=== PATIENT | male | born 1950 | race Caucasian/White ===

== ENCOUNTER → 2018-10-05 11:48 | Outpatient (CLI) | payer MEDICARE, OTHER, SELFPAY | PROVIDERS: Family Provider Family Medicine; PCP Family Medicine; Referring Provider Nurse Practitioner Adult Health; Visit Provider Nurse Practitioner Adult Health | DX: Z85.46 Personal history of malignant neoplasm of prostate (principal) | CPT/HCPCS: 36415; 84153 ==

== ENCOUNTER 2019-01-18 13:11 | Inpatient (IN) | payer OTHER, MEDICARE, SELFPAY ==
[2019-01-18] VITALS (16 sets, daily range): BP systolic 103–140; BP diastolic 31–89; PULSE 51–78; RESP 13–17; TEMP 35.9–37; O2SAT 96–100; BMI 31.8; BMI 27.3
--- NOTE | 2019-01-18 13:30 | EKG12_ITS ---
Test Reason : CP Blood Pressure : / mmHG Vent. Rate : 055 BPM Atrial Rate : 055 BPM P-R Int : 176 ms QRS Dur : 106 ms QT Int : 454 ms P-R-T Axes : 064 073 059 degrees QTc Int : 434 ms Sinus bradycardia Otherwise normal ECG Confirmed by CARLOZ HARDIN, CLEVELAND ([id number]), editor sound ANGEL PELAYO ([id number]) on 01/19/2019 3:38:42 PM Referred By: Gael Diez Confirmed By:CLEVELAND CARTY MD
[2019-01-18 13:41] LABS: Absolute Lymphocyte Count 1.28 X10^3/ul (0.83-4.51); Absolute Neutrophil Count 5.2 X10^3/uL (2.0-7.7); Basophil# 0.02 X10^3/uL; Basophil% 0.3 % (0-1); Eosinophil# 0.07 X10^3/uL; Hematocrit 43.2 % (40-54); Hemoglobin 14.7 g/dl (13.0-16.5); Lymphocyte # 1.28 X10^3/ul (4.0); Mean Corpuscular Hgb 30.1 pg (27.0-32.0); Mean Corpuscular Volume 88.5 fL (80-94); Mean Platelet Vol. 9.7 fl (6.2-12.0); Monocyte# 0.51 X10^3/uL; Monocyte% 7.2 % (0-10); Neutrophil # 5.22 X10^3/uL (2.7-7.7); Neutrophil % 73.5 % (47-70); Platelet Count 263 K/mm3 (150-450); RBC Distribution Width CV 12.7 % (11.6-14.6); RBC Distribution Width SD 40.6 fl (35.1-43.9); Red Blood Count 4.88 M/mm3 (4.6-6.2); White Blood Count 7.1 K/mm3 (4.4-11.0)
[2019-01-18 13:45] LABS: POSITIVE COUNT NO; POSITIVE DIFFERENTIAL NO; POSITIVE MORPHOLOGY NO
--- NOTE | 2019-01-18 13:45 | RAD_ITS ---
STUDY: X-RAY CHEST REASON FOR EXAM: Male, 68 years old. Chest pain. STEMI alert. TECHNIQUE: Single AP portable view of the chest. COMPARISON: None. FINDINGS: EKG electrodes are seen. Mild degree of vascular congestion. There is no demonstrated pleural abnormality. Normal size heart. Normal mediastinum and shonda. Normal visualized pulmonary arteries. There is atherosclerotic tortuosity of the aortic arch and descending thoracic aorta. Normal visualized thoracic spine. Amorphous calcification in the proximal shaft of the right humerus suggestive of a chondroid calcification or healed bone infarct. There is no demonstrated abnormality of the visualized soft tissue structures of the upper abdomen. RAD/Chest 1 View (Portable) IMPRESSION: Mild degree of vascular congestion. Electronically Signed: Carl Mi, at 14:30 EST , Service support ,
[2019-01-18] MEDS: TICAGRELOR 90 MG TABLET 180 MG PO (13:49)
--- NOTE | 2019-01-18 13:50 | ED.VISSUMM ---
- ER Visit Summary Date of Service: 01/18/19 Chief Complaint: [Chest pain] History of Present Illness: The patient is a 68 M [presents to the emergency department complaint of chest pain that started at 12:10 PM. Patient states that he had finished rowing machine around 11:40 AM. Patient had some to come over to sign some papers and then by 10 minutes later developed discomfort in his left chest radiating into his left arm. Patient became diaphoretic and short of breath. Patient was nauseated and did vomit. Patient is never had discomfort like this before. EMS was called. EMS gave the patient aspirin and also 1 sibling and nitro.] Patient is never had pain like this before. Patient states that he has had a heart cath but it has been over 12 years since the last heart cath. He denies recent travel or surgery. Patient has remote history of prostate cancer. Physical Examination: [HEENT-PERRLA, EOMI. Cranial nerves II through XII grossly intact. TMs clear. Mucous membranes moist. No adenopathy. Cardiovascular-regular rate and rhythm without murmur or ectopy Lungs-clear to auscultation, chest wall stable without crepitus or subcu emphysema Abdomen-normoactive bowel sounds, soft, nontender, no rebound or rigidity, no peritoneal signs. Extremities-intact ?4, normal range of motion, normal pulses, atraumatic] Test Results: [EKG obtained arrival showed some subtle ST elevation in V1 as well as V2 and V3 which when compared with prior EKG appears to be new. Chemistries pending.] Emergency Department Course and Treatment: [I discussed case with cardiology upon obtaining the EKG and evaluating old EKG which appears to be different and I am concerned about patient's presentation. Cardiology felt his EKG was consistent with ST elevation MO. Patient was given Brilinta and heparin and was transferred immediately to the Heel Nailing Machine Operator.] Treatment Plan: [Admit to Heel Nailing Machine Operator] Disposition: [Admit] Impression: [Acute ST elevation MO Chest pain] This note was generated with [employer] dictation software. It may contain incorrect words, spelling, and punctuation that were not noted in review of the chart prior to signing ED Disposition - Plan for ED Patient: Referrals: Davy Gallagher MD [Primary Care Provider] -
[2019-01-18 13:55] LABS: Anion Gap 10 (5-15); BUN 20 mg/dL (7-18); Calcium,Total 9.2 mg/dL (8.5-10.1); Chloride 105 mmol/L (98-107); Creatinine, Serum 1.05 mg/dL (0.70-1.30); EST Glomerular Filtration Rate 75 mL/min (>60); Est Glom Filt Rate - Afr Amer 91 mL/min (>60); Estimated Creatinine Clearance 62.45 ml/min; Glucose 158 mg/dL (74-106); Lipase 144 U/L (73-393); Potassium 3.4 mmol/L (3.5-5.1); Sodium Level 137 mmol/L (136-145)
--- NOTE | 2019-01-18 13:55 | CM.ED ---
SOCIAL WORK NOTE THIS WORKER RESPONDED TO STEMI. PT'S SON, YUKO AND FRIEND PRESENT. EMOTIONAL SUPPORT AND EDUCATION PROVIDED. ESCORTED FAMILY TO REFERENCE ARCHIVIST PRIVATE WAITING AREA. THIS WORKER TO FOLLOW UP. SANDRA CARABALLO, HISTOLOGY SUPERVISOR, GANG PLANK WORKMAN.
--- NOTE | 2019-01-18 14:02 | ED.RN ---
roving tester laboratory staff at bedside prior to pt being prep.
--- NOTE | 2019-01-18 14:41 | CM.ED ---
Social Work Assessment Referral Date: 01/18/19 Date of Assessment: 01/18/19 Informant: SELF-REFERRAL Reason for Consult: STEMI Information obtained from: PT'S SON, YUKO [phone] Living Arrangements: PT LIVES HOME WITH IN A 1 STORY HOME Employment/Financial: RETIRED, PER SON, PT FINANCIALLY STABLE. DENIES ANY NEEDS. Supports: PT HAS GOOD SUPPORT FROM FAMILY AND FRIENDS. Social/Family Stressors: NONE REPORTED Mental Health History: SON DENIES ANY HX OF MENTAL HEALTH FOR PT. Substance Abuse History: SON DENIES ANY HX OF SUBSTANCE ABUSE FOR PT. Interventions: SOCIAL SERVICE ASSESSMENT Assessment: PT IS A 68 Y/O MALE WHO PRESENTED TO ED WITH CHEST PAIN. STEMI WAS CALLED AND PT TAKEN TO GROUNDS MANAGER. THIS WORKER COMPLETED ASSESSMENT WITH PT'S SON, YUKO. PER YUKO, PT IS INDEPENDENT WITH ALL ADLS AND STAYS PHYSICALLY FIT AND ACTIVE. SON DENIES ANY HX OF MENTAL HEALTH OR SUBSTANCE ABUSE FOR PT. HOME SET UP IS 1 STORY. PT'S PCP IS DR. YURY MERIDA. SON REPORTS OTHER FAMILY HAS BEEN UPDATED AND IS TRAVELING AND WILL BE HEADING BACK FROM OUT OF STATE THIS DAY. EXPLAINED THIS WORKER'S ROLE AND EMOTIONAL SUPPORT PROVIDED. UPDATED ON ICU ROOM NUMBER PT WILL BE TAKEN TO AFTER GROUNDS MANAGER. NO OTHER QUESTIONS OR CONCERNS AT THIS TIME. PLAN: ADMIT ICU
--- NOTE | 2019-01-18 14:42 | PCM.HP.STD ---
Problem List (1) STEMI (ST elevation myocardial infarction) Status: Acute Qualifiers: Involved coronary artery: unspecified coronary artery Qualified Code(s): I21.3 - ST elevation (STEMI) myocardial infarction of unspecified site (2) Diverticulosis of colon Status: Chronic History of Present Illness Date of Admission: 01/18/19 Chief Complaint: Chest pain The patient is a 68 y/o M w/ PMHx: Diverticulosis otherwise healthy who presents to the [facility] ED on 01/18/19 with history of exercising on a.m. of day of presentation, specifically rowing following which he stopped in approximately 20 minutes afterwards he started to have left arm discomfort which was severe in nature and then radiated to his chest described as constant, pressure and throbbing in nature with diaphoresis with no associated dyspnea, nausea, emesis at 11:20 AM. In the ED workup included T 96.6, heart rate 51, BP 107/87, respiratory rate 17, 100% on room air, CBC with WBC 7.1, hemoglobin 14.7, platelet 263 with mild left shift, d-dimer 0.50, BMP with potassium 3.4, BUN/creatinine 20/1.05, glucose 158, troponin initial < 0.015, lipase 144, EKG w/ concerns for sinus bradycardia with anterior septal STEMI, chest x-ray with mild appearance of congestion. Given STEMI concern cardiology immediately contacted and STEMI call placed at approximate 1345 with patient administration of aspirin therapy, Brilinta load, Phenergan, fentanyl 35 mcg IV x1, bolus in addition to normal saline. Patient transition to the cardiac catheterization lab for cardiac catheterization per Dr. Diez. Past Medical History Past Medical History (Chronic Problems): Chronic Problems Diverticulosis of colon (Chronic) Allergies ondansetron [From Zofran (as hydrochloride)] Adverse Reaction (Verified 01/18/19 13:12) HALLUCINATIONS Home Medications: Ambulatory Orders Medication Instructions Recorded Hydrocodone Bitart/Apap 5-325 1 - 2 tablet PO Q4H PRN PRN #20 08/30/17 [Holloway 5/325] tablet Amoxicillin/Potassium Clav 1 each PO BID #20 tablet 09/09/17 [Augmentin 875-125 Tablet] Polyethylene Glycol 3350 [Miralax] 17 gm PO DAILY #10 packet 09/09/17 Surgical History: - - Tonsillectomy, left knee arthroscopic surgery. Psychiatric History: No pertinent psych hx Lives: Spouse/ Significant Other Smoking Status: Former smoker - Quit cigarette tobacco usage approximately 25 years prior with prior to this a 1 pack/day cigarette tobacco usage history. Tobacco Use: Non-smoker Alcohol: None Drugs: None - *Family History Maternal History Items: Heart Disease Paternal History Items: Heart Disease Review of Systems Constitutional: Reports: Malaise, Weakness, Fatigue. Denies: Chills, Fever, Weight Change HEENT: Denies: Head Aches, Sinus Congestion, Sinus Drainage Cardiovascular: Reports: Chest Pain, Chest Pressure. Denies: Edema, Orthopnea, Palpitations, Syncope Respiratory: Denies: Cough, Shortness of Breath, Shortness of breath at rest, Shortness of breath upon exertion, Sputum production Gastrointestinal: Denies: Abdominal Pain, Nausea, Vomiting Genitourinary: Denies: Dysuria Musculoskeletal: Denies: Joint Pain, Joint Tenderness Skin: Denies: Rash, Wounds Neurological: Denies: Numbness, Tingling, Focal weakness Psychiatric: Denies: Anxiety, Depression, Homicidal Ideations, Suicidal Ideations Hematologic/ Lymphatic: Denies: Easy Bruising, Easy Bleeding VTE Information - Inpt Only VTE Present on Admission: No VTE Mechan Device Prophylaxis: SCD's VTE Pharm Prophylaxis ordered?: Yes Patient Problems: Active and Suspected Problems STEMI (ST elevation myocardial infarction) (Acute) Subjective: Seated upright in ED bed, very uncomfortable during, ongoing chest discomfort, flushed. Objective: Physical Examination: General: awake, alert, oriented x 3 and cooperative, seated upright in ED bed, ill-appearing, ongoing pain, flushed appearance. Skin: Flushed appearance, turgor, no icterus, cyanosis. HEENT: AT/NC, EOMI, PERRLA, mildly dry MM, no carotid bruits or JVD noted. Lungs: CTA bilaterally, moderate effort, mild decrease BL bases, no rales, ronchi or wheezing. Heart: Cardiac with regular rhythm; no gallop, rub audible. Abdomen: soft, NTTP, ND, normal BS, no HSM. Extremities: no cyanosis, clubbing, or edema. Neurological: patient awake, alert, oriented x 3; cognitive function intact; pupils equally reactive to light and accomodation; cranial nerves II-XII grossly normal, moving all 4 extremities, no focal deficits, strength accordingly severely globally decreased secondary to acute presentation. Psychiatric: affect appears in pain, mildly agitated, no acute evidence of depressive or anxiety feelings. - Physical Exam Vital Signs Temp Pulse Resp BP Pulse Ox 96.6 F L 51 L 17 107/87 H 100 01/18/19 13:12 01/18/19 13:12 01/18/19 13:12 01/18/19 13:12 01/18/19 13:30 Oxygen Delivery Method Room Air Weight: 197 lb Body Mass Index (BMI) 31.8 Laboratory Tests Past 24 Hrs 01/18/19 01/18/19 01/18/19 13:27 13:27 13:27 WBC 7.1 RBC 4.88 Hgb 14.7 Hct 43.2 MCV 88.5 MCH 30.1 MCHC 34.0 RDW 12.7 RDW Differential 40.6 Plt Count 263 MPV 9.7 Immature Gran % (Auto) 0.000 Neut % (Auto) 73.5 H Lymph % (Auto) 18.0 L [place] % (Auto) 7.2 Eos % (Auto) 1.0 Baso % (Auto) 0.3 Absolute Neuts (auto) 5.2 Absolute Lymphs (auto) 1.28 Total Counted Not Reportable D-Dimer Quant (PE/DVT) 0.50 H Sodium 137 Potassium 3.4 L Chloride 105 Carbon Dioxide 22.0 Anion Gap 10 BUN 20 H Creatinine 1.05 Estim Creat Clear Calc 62.45 Est GFR (MDRD) Af Amer 91 Est GFR (MDRD) Non-Af 75 BUN/Creatinine Ratio 19.0 Glucose 158 H Calcium 9.2 Troponin I < 0.015 Lipase 144 Assessment/Plan All Active Problems STEMI (ST elevation myocardial infarction) (Acute) Abscess of sigmoid colon due to diverticulitis (Acute) The patient is a 68 y/o M w/ PMHx: Diverticulosis otherwise healthy who presents to the [facility] ED on 01/18/19 with history of exercising on a.m. of day of presentation, specifically rowing following which he stopped in approximately 20 minutes afterwards he started to have left arm discomfort which was severe in nature and then radiated to his chest described as constant, pressure and throbbing in nature with diaphoresis with no associated dyspnea, nausea, emesis at 11:20 AM. (1) Chest Pain w/ Acute STEMI: ED workup included T 96.6, heart rate 51, BP 107/87, respiratory rate 17, 100% on room air, CBC with WBC 7.1, hemoglobin 14.7, platelet 263 with mild left shift, d-dimer 0.50, BMP with potassium 3.4, BUN/creatinine 20/1.05, glucose 158, troponin initial < 0.015, lipase 144, EKG w/ concerns for sinus bradycardia with anterior septal STEMI, chest x-ray with mild appearance of congestion. Given STEMI concern cardiology immediately contacted and STEMI call placed at approximate 1345 with patient administration of aspirin therapy, Brilinta load, Phenergan, fentanyl 35 mcg IV x1, bolus in addition to normal saline. Patient transition to the cardiac catheterization lab for cardiac catheterization per Dr. Diez. Will admit to ICU following cardiac catheterization, maintain on a monitored bed, continue serial cardiac enzymes and EKGs. Obtain magnesium level upon admission. Continue medical management w/ asa, brillinta, defer BB/ACEI/ARB decision to cardiology given bradycardia and low normal BPs, add high dose statin w/ AM FLP. Obtain AM ECHO. ASA, NG, morphine. (2) Hypokalemia: Admission K+ 3.4, supplementation given, repeat level in AM. (3) Hyperglycemia: Admission glucose 158, hemoglobin A1c pending. (4) DVT prophylaxis: SCD, Lovenox to be initiated in a.m. Code Visit Inpatient E&M: 61631 Init Hosp L3
[2019-01-18 15:30] LABS: ACT Activated Clotting Time 175 sec (74-137)
[2019-01-18 15:30] LABS: ACT Activated Clotting Time 224 sec (74-137)
--- NOTE | 2019-01-18 15:45 | NURSING ---
Fem stop applied in laborer heading.
--- NOTE | 2019-01-18 15:55 | CL.I_ITS ---
Patient Name: ANDREW EDUARDO Study Date: 01/18/2019 Performing: Gael Diez MD Ht: 66.14 inches 168 cm : 1950 Wt: 196.21 lbs 89 kg Age: 68 Gender: male BSA: 1.99 PROCEDURE(S) PERFORMED PM83-RLE/COR/LV OF84-EEF, DENZEL AND/OR PTCA, ARTERY OR GRAFT, SINGLE VESSEL FL28-XAN W OR WO PTCA, EACH ADD'L ARTERY, SAME MAJOR CLINICAL PROFILE AND CO-MORBIDITIES Patient presents with STEMI for emergent cardiac cath. Indications: ACS <= 24 hrs, Suspected CAD Heart Failure: None Stress/Imaging Stress/Image Study Performed: No Angina Classification Anginal Classification w/in 2 Weeks: No symptoms CAD Presentations: Unstable angina. STEMI. Symptom onset Date/Time: 01/18/2019 12:30:00 Time Casandra mated Comorbidities/Risk Factors: Hypertension Dyslipidemia CONCLUSIONS Normal LV size, wall motion,and systolic function Perserved Left Ventricular systolic function with normal EDP Double vessel CAD of the LAD and DIAG#1 Successful PTCA/DENZEL mid DIAG#1 with a 2.5 x 12 Promus Synergy, 85%-->0%, no dissection. Successful PCI with PTCA to the ostial DIAG#1 prior to and after stent deployment in the LAD, utilizi ng a 2.5 x 8 balloon; 85%--50%, no dissection. No additional stenting performed as pt had <50% resid ual stenosis, was chest pain free, acute angle of the bifurcation and concern over protruding into LA D and causing in stent thrombosis. Successful PTCA/DENZEL mid LAD with a 2.5 x 28 Promus Synergy stent, post dilated with a 3.0 x 12 NC Bal loon, followed more proximally with a 3.5 x 8 NC Balloon; 100%-->0%, no dissection. Successful PTCA/DENZEL to mid LAD with a 2.25 x 20 Promus Synergy, post dilated with a 2.5 x12 mm NC bal loon; 75%-->0%, no dissection. RECOMMENDATIONS Referred for immediate PCI Management as per referring Pig Casting Machine Operator Risk factor modification Management as per referring Pig Casting Machine Operator Mynx closure partially successful, direct manual pressure held for 30 min, followed by a femostop in agricultural labor camp manager. No further oozing or bleeding. DESCRIPTION OF PROCEDURE The patient arrived to the procedure lab. The risks and benefits of the procedure as well as a full d escription of our services here and lack of surgical backup were fully explained to the patient and/o r their significant other prior to the catheterization. The Timeout was completed, verifying the ginny ect patient and procedure. The patient's procedural site was prepped and draped in the usual fashion. Local anesthetic was given subcutaneously to right groin region with Lidocaine 2%. Using a modified Seldinger technique, arterial access was obtained via the right femoral artery, a 6Fr sheath was inse rted.. Right Coronary Artery selective angiography was then performed in multiple views using a 4 Fr . 3DRC catheter. Left Coronary Artery selective angiography was performed in multiple views using a 6 Fr. EBU 3.5. Left Ventriculography was performed in VERGARA projection using a 4 Fr. Pigtail catheter. L V to AO pullback pressures were then recorded Runthrough Guide wire was advanced to the LAD. 2.0 x 12 Emerge Balloon catheter was inserted. Bal loon catheter was advanced across lesion in the LAD, mid. PTCA balloon inflated at 6 atms for 7 secs. PTCA balloon inflated at 8 atms for 8 secs. Angiogram performed post balloon dilatation. Runthrough (2) Guide wire was inserted as a christiano wire. 2.0 x 12 Emerge Balloon catheter was reinserted Balloon catheter was advanced across lesion in the LAD, mid. PTCA balloon inflated at 8 atms for 6 secs. PTCA balloon inflated at 10 atms for 5 secs. Synergy 2.5 x 12 Drug Eluting stent was inserted. Drug Eluti ng stent was advanced across the lesion in the first diagonal, ostial. Angiogram performed post stent deployment. Synergy 2.5 x 28 Drug Eluting stent was inserted. Angiogram performed pre stent deployme nt. Angiogram performed post stent deployment. 3.0 x 12 NC Euphora Balloon catheter was inserted. Bal loon catheter was advanced across lesion in the LAD, mid. Post Stent PTCA balloon inflated at 14 atms for 11 secs. Angiogram performed post balloon dilatation. 3.5 x 8 NC Euphora Balloon gilberto ter was inserted. Balloon catheter was advanced across lesion in the LAD, mid. Angiogram performed po st balloon dilatation. 2.25 x 20 Synergy Drug Eluting stent was inserted. Drug Eluting stent was adva nced across the lesion in the LAD, mid. Angiogram performed pre stent deployment. Synergy 2.[address] balloon Balloon catheter was reinserted 2.5 x 12 NC Euphora Balloon catheter was inserted. Balloo n catheter was advanced across lesion in the LAD, mid. Angiogram performed post balloon dilatation. 3 .5 x 8 NC Euphora Balloon catheter was inserted. Balloon catheter was advanced across lesion in the L AD, mid. Angiogram performed post balloon dilatation. 2.5 x 12 NC Euphora Balloon catheter was insert ed. Balloon catheter was advanced across lesion in the first diagonal, ostial. 2.5 x 8 Emerge Balloon catheter was inserted. Balloon catheter was advanced across lesion in the first diagonal, ostial. Angiogram performed post balloon dilatation. Contrast was injected through the sheath and the Right Iliac and Femoral artery were assessed for possible closure device. The arterial sheath was p ulled and a Mynx closure device was deployed for hemostasis. Mynx failed. Manual compression applied until hemostasis is achieved. CORONARY ANGIOGRAPHY DOMINANCE: Right Dominant LEFT HEART ASSESSMENT Left Ventricular Ejection Fraction: by LV Gram 75 % Normal Left Ventricular systolic function Normal LV wall motion LEFT MAIN: Angiographically normal LEFT ANTERIOR DECENDING ARTERY: MID LAD: is occluded DIAGONAL 1: Ostial - 85 % Stenosis, Mid - 85 % Stenosis CIRCUMFLEX ARTERY: Mild luminal irregularities less than 30% RIGHT CORONARY ARTERY: PROX RCA: Mild luminal irregularities less than 30% MID RCA: Mild luminal irregularities less than 30% RT PDA: Proximal - Mild luminal irregularities less than 30% INTERVENTION INFORMATION LESION SITE: 1st Diagonal (Mid) Lesion Complexity: Non-High/Non-C, lesion at bifurcation: No, thrombus present: No, lesion length: 12 mm, culprit lesion: No Pre Stenosis: 85 % Pre intervention KATELYN flow: 3 PROCEDURE: Drug Eluting Stent with pre dilatation. Post Stenosis: 0 % Post intervention KATELYN flow: 3 Lesion Devices: Tommy Sci EMERGE MR 2.00x12 BALLOON Terumo .014 Runthrough Extra Floppy 180cm straight BlueView Technologiestronic 6 Fr EBU3.5 100cm Guide Catheter Tommy Sexton Synergy MR DENZEL 2.50x12 LESION SITE: 1st Diagonal (ostial) Lesion Complexity: High/C, lesion at bifurcation: Yes, thrombus present: No, lesion length: 8 mm, cul prit lesion: No Pre Stenosis: 85 % Pre intervention KATELYN flow: 3 PROCEDURE: Balloon Angioplasty Post Stenosis: 50 % Post intervention KATELYN flow: 3 Lesion Devices: Terumo .014 Runthrough Extra Floppy 180cm straight Medtronic 6 Fr EBU3.5 100cm Guide Catheter Tommy Sci EMERGE MR 2.50x08 BALLOON LESION SITE: LAD (Mid) Lesion Complexity: High/C, lesion at bifurcation: Yes, thrombus present: Yes, lesion length: 48 mm, c ulprit lesion: Yes, Lesion Complexity: High/C, lesion at bifurcation: Yes, thrombus present: Yes, les ion length: 28 mm, culprit lesion: Yes Pre Stenosis: 100 % Pre intervention KATELYN flow: 0 PROCEDURE: Drug Eluting Stent with pre and post dilatation Drug Eluting Stent with pre and post dilatation 0 % Post intervention KATELYN flow: 3 Lesion Devices: Terumo .014 Runthrough Extra Floppy 180cm straight Medtronic 6 Fr EBU3.5 100cm Guide Catheter Tommy Sci Synergy MR DENZEL 2.50x28 Medtronic NC EUPHORA RX 3.0x12 BALLOON Medtronic NC EUPHORA RX 3.5x08 BALLOON Tommy Sci Synergy MR DENZEL 2.25x20 Medtronic NC EUPHORA RX 2.5x12 BALLOON COMPLICATIONS No Complications PROCEDURE MEDICATIONS Oxygen: 2 L/min via nasal cannula Heparin 6000 unit(s) IV 01/18/2019 14:07:11 Nitro 200 mcg IC 01/18/2019 14:08:20 Nitro 200 mcg IC 01/18/2019 14:08:20 Nitro 200 mcg IC 01/18/2019 14:20:19 IV Bolus: .9 NaCl 1000 ml total 01/18/2019 14:36:06 IV Fluids: .9 NaCl decreased to 150 ml/hr 01/18/2019 14:57:46 SUMMARY OF HEMODYNAMIC DATA Time AIR REST ECG 13:57:06 AO 123/67 (91) SA 14:02:09 LV 113/-14, 4 14:55:22 LV 113/-14, 5 14:55:28 LVp 117/-17, 1 14:55:44 AOp 115/56 (78) 14:55:50 Signed By Gael Diez MD On 01/19/2019 4:15:22 PM Signed By Gael Diez MD On 01/18/2019 15:54:55 Gael Diez MD
--- NOTE | 2019-01-18 16:00 | EKG12_ITS ---
Test Reason : S/P PCI, STEMI Blood Pressure : / mmHG Vent. Rate : 063 BPM Atrial Rate : 063 BPM P-R Int : 176 ms QRS Dur : 098 ms QT Int : 412 ms P-R-T Axes : 063 060 062 degrees QTc Int : 421 ms Normal sinus rhythm Nonspecific ST abnormality Abnormal ECG When compared with ECG of 18-JAN-2019 13:14, MANUAL COMPARISON REQUIRED, DATA IS UNCONFIRMED Confirmed by CARLOZ HARDIN, CLEVELAND ([id number]), magazine editor USMAN MERIDA ([id number]) on 01/23/2019 2:48:45 PM Referred By: Gael Diez Confirmed By:CLEVELAND CARTY MD
--- NOTE | 2019-01-18 16:00 | NURSING ---
NS bag up from dye lab technician w/approx 500 ml. Infusing @ 150 ml/hr per order.
--- NOTE | 2019-01-18 16:35 | NURSING ---
RT leg upper thigh (marked)- 23in RT leg lower thigh (marked)- 17&1/4in RT leg calf (marked)- 14&3/4in LT leg upper thigh (marked)- 20&3/4in LT leg lower thigh (marked)- 17in LT leg calf (marked)- 12&3/4in
[2019-01-18 18:00] LABS: Hemoglobin A1c 5.6 % (4.2-6.3)
--- NOTE | 2019-01-18 18:15 | NURSING ---
RT leg upper thigh (marked)- 22in RT leg lower thigh (marked)- 17&1/2in RT leg calf (marked)- 14&3/4in LT leg upper thigh (marked)- 20&3/4in LT leg lower thigh (marked)- 17in LT leg calf (marked)- 12&3/4in
[2019-01-18 18:19] LABS: Magnesium 2.1 mg/dL (1.6-2.6)
[2019-01-18] MEDS: Acetaminophen 325 MG Tablet 650 MG PO (19:46)
[2019-01-18] MEDS: 0.9% Normal Saline 1,000 ML 150 ML IV (19:46)
[2019-01-18] MEDS: HYDROcodone Bitartrate/Apap 5/325 Tablet PO (21:12)
[2019-01-18] MEDS: LORazepam 1 MG Tablet PO (21:15)
[2019-01-18] MEDS: Atorvastatin Calcium 80 MG Tablet PO (21:15)
[2019-01-18] MEDS: TICAGRELOR 90 MG TABLET PO (21:15)
[2019-01-18 22:05] LABS: Bedside Glucose 97 mg/dL (70-110)
[2019-01-19] VITALS (29 sets, daily range): BP systolic 98–128; BP diastolic 52–86; PULSE 51–68; RESP 12–20; TEMP 36.7–36.8; O2SAT 95–100; BMI 31.8
[2019-01-19 02:21] LABS: Bedside Glucose 133 mg/dL (70-110)
[2019-01-19 04:55] LABS: Hematocrit 39.5 % (40-54); Hemoglobin 13.1 g/dl (13.0-16.5); Mean Corp Hgb Conc 33.2 g/gl (32-36); Mean Corpuscular Hgb 29.6 pg (27.0-32.0); Mean Corpuscular Volume 89.4 fL (80-94); Mean Platelet Vol. 9.4 fl (6.2-12.0); Platelet Count 251 K/mm3 (150-450); RBC Distribution Width SD 41.9 fl (35.1-43.9); Red Blood Count 4.42 M/mm3 (4.6-6.2); White Blood Count 7.4 K/mm3 (4.4-11.0)
[2019-01-19 04:56] LABS: Scan Indicated on CBC? Y/N NO
[2019-01-19 05:08] LABS: ALB/GLOB Ratio 0.9 RATIO (0.9-2.4); AST(SGOT) 131 U/L (15-37); Alanine Aminotransfer ALT/SGPT 44 U/L (16-61); Albumin, Serum 3.3 g/dL (3.2-5.0); Alkaline Phosphatase 50 U/L (45-117); Anion Gap 7 (5-15); BUN 15 mg/dL (7-18); BUN/Creat Ratio 15.4 RATIO (10-20); Calcium,Total 8.4 mg/dL (8.5-10.1); Chloride 110 mmol/L (98-107); Cholesterol 196 mg/dL (200); Creatinine, Serum 0.98 mg/dL (0.70-1.30); EST Glomerular Filtration Rate 82 mL/min (>60); Est Glom Filt Rate - Afr Amer 99 mL/min (>60); Estimated Creatinine Clearance 81.38 ml/min; Globulin 3.5 g/dL (2.2-4.2); Glucose 105 mg/dL (74-106); High Density Lipoprotein 39 mg/dL; Potassium 4.1 mmol/L (3.5-5.1); Protein, Total 6.8 g/dL (6.4-8.2); Sodium Level 142 mmol/L (136-145); Triglycerides 103 mg/dL; Very Low Density Lipoprotein 21 mg/dL (5-40)
--- NOTE | 2019-01-19 05:55 | ECHOD_ITS ---
Reason For Study: CHEST PAIN Procedure This was a 2D Doppler, Color Flow transthoracic echocardiogram. Exam performed portable in ICU/CCU. Left Ventricle Normal size and thickness. The estimated ejection fraction is 55-60 %. Stage 1 diastolic dysfunction. Mid-anteroseptal : Mildly hypokinetic. Anterior [place] : Mildly hypokinetic. Right Ventricle Normal size and thickness. Normal systolic function. Atria Normal left atrium. Normal right atrium. Normal atrial septum. Mitral Valve The mitral valve is structurally normal. No prolapse or stenosis seen. Tricuspid Valve Normal tricuspid valve. Trivial tricuspid valve insufficiency. Right ventricular systolic pressure estimated to be 29 mmHg. Aortic Valve Trisinus/trileaflet aortic valve. Trivial aortic valve insufficiency. Pulmonic Valve Normal pulmonic valve. Trivial pulmonic valve insufficiency. Great Vessels Normal aortic root. Normal arch. Normal inferior vena cava. Inferior vena cava collapse with sniff. Pericardium/Pleural No pericardial effusion. MMode/2D Measurements & Calculations LVIDd: 4.5 cm IVSd: 0.96 cm Ao root diam: 3.5 cm LVIDs: 3.0 cm LVPWd: 1.2 cm RVDd: 3.8 cm FS: 31.8 % LAV(MOD-bp): 55.8 ml LA A4 area: 20.7 cm2 LA dimension(2D): 3.7 cm LAV(MOD-bp) Indexed: 26.1 ml/m2 LAV(MOD-sp2): 46.6 ml LAV(MOD-sp4): 65.8 ml RA A4 area: 14.8 cm2 Time Measurements MV dec time: 0.22 sec Doppler Measurements & Calculations MV E max evangelist: 74.4 cm/sec Lat Peak E' Evangelist: 9.4 cm/sec Med Peak E' Evangelist: 9.1 cm/sec MV A max evangelist: 97.8 cm/sec E/E' lat: 7.9 E/E' med: 8.2 MV E/A: 0.76 Ao V2 max: 156.5 cm/sec AI max evangelist: 195.4 cm/sec LV V1 max: 152.8 cm/sec Ao max P.8 mmHg AI max P.3 mmHg LV V1 max P.3 mmHg AI dec slope: 123.1 cm/sec2 AI P1/2t: 464.9 msec PA V2 max: 82.6 cm/sec PI end-d evangelist: 108.0 cm/sec TR max evangelist: 252.7 cm/sec TR max P.6 mmHg Interpretation Summary The estimated ejection fraction is 55-60 %. Stage 1 diastolic dysfunction. Mid-anteroseptal : Mildly hypokinetic Anterior [place] : Mildly hypokinetic Right ventricular systolic pressure estimated to be 29 mmHg. There is no comparison study available. Ordering Physician: Elvi Dowd Referring Physician: YURY MERIDA Performed By: Vianney Mayers, DARREN, RVT
--- NOTE | 2019-01-19 07:31 | PN_ITS ---
Patient Problems: Active and Suspected Problems STEMI (ST elevation myocardial infarction) (Acute) Subjective: Patient is a 68-year-old gentleman who presented with chest pain and assessment of acute ST segment elevation [place] made patient underwent emergency left heart catheterization with intervention Objective: GENERAL: cooperative HEENT: Atraumatic; moist oral mucosa EYES; Anicteric, Normal Conjunctiva NECK; supple, normal thyroid, no distended JVD. RESPIRATORY: Diminished to auscultation bilaterally, CARDIOVASCULAR: Regular S1 S2, no audible murmurs GI: soft, non-tender, normoactive bowel sounds, : No Renal angle tenderness; EXTREMITIES: No edema, no clubbing, no cyanosis. NEURO: Awake; no lateralizing signs. SKIN: No Rash PSYCH; Normal affect Vitals/I&O's: Vital Signs Temp Pulse Resp BP Pulse Ox 98.1 F 67 14 111/52 L 98 01/19/19 00:00 01/19/19 06:00 01/19/19 06:00 01/19/19 06:00 01/19/19 06:00 Oxygen Delivery Method Room Air Weight: 92 kg Body Mass Index (BMI) 27.3 Intake and Output for Last 24 Hours 01/17/19 01/18/19 01/19/19 23:59 23:59 23:59 Intake Total 1117 / 1117 Output Total 2250 / 2250 650 / 650 Balance -1133 / -1133 -650 / -650 Laboratory Results 01/18/19 13:27: WBC 7.1, RBC 4.88, Hgb 14.7, Hct 43.2, MCV 88.5, MCH 30.1, MCHC 34.0, RDW 12.7, RDW Differential 40.6, Plt Count 263, MPV 9.7, Immature Gran % (Auto) 0.000, Neut % (Auto) 73.5 H, Lymph % (Auto) 18.0 L, [place] % (Auto) 7.2, Eos % (Auto) 1.0, Baso % (Auto) 0.3, Absolute Neuts (auto) 5.2, Absolute Lymphs (auto) 1.28, Total Counted Not Reportable 01/18/19 13:27: Sodium 137, Potassium 3.4 L, Chloride 105, Carbon Dioxide 22.0, Anion Gap 10, BUN 20 H, Creatinine 1.05, Estim Creat Clear Calc 62.45, Est GFR (MDRD) Af Amer 91, Est GFR (MDRD) Non-Af 75, BUN/Creatinine Ratio 19.0, Glucose 158 H, Calcium 9.2, Troponin I < 0.015, Lipase 144 01/18/19 13:27: D-Dimer Quant (PE/DVT) 0.50 H 01/18/19 14:03: Activated Clotting Time 175 H 01/18/19 15:01: Activated Clotting Time 224 H 01/18/19 17:30: Hemoglobin A1c 5.6 01/18/19 17:30: Magnesium 2.1, Troponin I 20.000 H* 01/18/19 21:43: POC Glucose 97 01/19/19 01:40: POC Glucose 133 H 01/19/19 04:30: WBC 7.4, RBC 4.42 L, Hgb 13.1, Hct 39.5 L, MCV 89.4, MCH 29.6, MCHC 33.2, RDW 13.0, RDW Differential 41.9, Plt Count 251, MPV 9.4 01/19/19 04:30: Sodium 142, Potassium 4.1, Chloride 110 H, Carbon Dioxide 25.0, Anion Gap 7, BUN 15, Creatinine 0.98, Estim Creat Clear Calc 81.38, Est GFR (MDRD) Af Amer 99, Est GFR (MDRD) Non-Af 82, BUN/Creatinine Ratio 15.4, Glucose 105, Calcium 8.4 L, Total Bilirubin 0.40, AST 131 H, ALT 44, Alkaline Phosphatase 50, Total Protein 6.8, Albumin 3.3, Globulin 3.5, Albumin/Globulin Ratio 0.9, Triglycerides 103, Cholesterol 196, LDL Cholesterol 136 H, VLDL Cholesterol 21, HDL Cholesterol 39 L Current Medications Acetaminophen (Tylenol) 650 mg PO Q6H PRN PRN PRN Reason: Non-cardiac pain (mod-severe) Last Admin: 01/18/19 19:46 Dose: 650 mg Hydrocodone Bitart/Acetaminophen (Ray 5mg-325mg) 1 - 2 tablet PO Q6H PRN PRN PRN Reason: Moderate-severe pain Last Admin: 01/18/19 21:12 Dose: 1 tablet Al Hydroxide/Mg Hydroxide (Mylanta Ii) 30 ml PO Q6H PRN PRN PRN Reason: Gastric burning Aspirin (Ecotrin) 81 mg PO DAILY@0800 [facility] Atorvastatin Calcium (Lipitor) 80 mg PO QHS [facility] Last Admin: 01/18/19 21:15 Dose: 80 mg Atropine Sulfate () 0.5 mg IV UD PRN PRN Reason: HR <50 bpm Heparin Sodium (Beef Lung) (Heparin 500 Unit/5 Ml (100/Ml)) 4,000 unit IV UD PRN PRN Reason: HEPARIN FLUSH Last Admin: 01/18/19 13:49 Dose: 4,000 unit Heparin Sodium (Beef Lung) (Heparin 500 Unit/5 Ml (100/Ml)) 500 unit IV UD PRN PRN Reason: HEPARIN FLUSH Hydralazine HCl (Apresoline Iv) 10 mg IV Q4H PRN PRN PRN Reason: SBP > 160 Sodium Chloride () 250 mls @ 15 mls/hr IV .[id number] PRN PRN Reason: SALINE FLUSH Labetalol HCl (Trandate) 5 mg IV X1 PRN PRN Reason: SBP > 160 when pulling sheath Lisinopril (Zestril) 5 mg PO DAILY [facility] Lorazepam (Ativan) 1 mg PO Q6H PRN PRN PRN Reason: BACK SPASMS/ANXIETY Last Admin: 01/18/19 21:15 Dose: 1 mg Magnesium Hydroxide (Milk Of Magnesia) 30 ml PO DAILY PRN PRN PRN Reason: Constipation Metoclopramide HCl (Reglan) 5 mg IV Q6H PRN PRN Reason: NAUSEA/VOMITING Metoprolol Tartrate (Lopressor (Beta Telma)) 12.5 mg PO BID [facility] Last Admin: 01/18/19 21:30 Dose: Not Given Morphine Sulfate () 1 - 2 mg IV Q4H PRN PRN PRN Reason: PAIN Nitroglycerin (Nitrostat) 0.4 mg SUBLINGUAL Q5M PRN PRN Reason: CARDIAC/CHEST PAIN Promethazine HCl (Phenergan) 6.25 mg IV Q4H PRN PRN PRN Reason: NAUSEA/VOMITING Sodium Chloride () 500 ml IV BOLUS PRN PRN Reason: VASO-VAGAL PROTOCOL Sodium Chloride () 5 - 15 ml IV UD PRN PRN Reason: SALINE FLUSH Ticagrelor (Brilinta) 90 mg PO BID [facility] Last Admin: 01/18/19 21:15 Dose: 90 mg Medical Necessity - Tobacco Use Smoking Status: Former smoker Tobacco Use: Non-smoker Assessment/Plan All Active Problems STEMI (ST elevation myocardial infarction) (Acute) Abscess of sigmoid colon due to diverticulitis (Acute) Patient is a 68-year-old gentleman who presented with chest pain and assessment of acute ST segment elevation DC made patient underwent emergency left heart catheterization with intervention 1. Acute STEMI; underwent emergency left heart catheterization findings included normal LVEF and double vessel CAD involving the LAD and diagonal. Patient had PTCA/DENZEL to mid LAD lesion and PTCA/DENZEL to mid diagonal lesion and PTCA to an ostial diagonal lesion. Subsequently admitted to the intensive care unit. Patient has already been seen in consultation by Dr. Diez who did perform the intervention 2. Hypokalemia: Admission K+ 3.4, treated per protocol 3. Hyperglycemia: Admission glucose 158, C was 5.6 IBD is ruled out 4. BMI of 31.8 weight loss advised 5. DVT prophylaxis: SCD, Lovenox Active Medications Acetaminophen (Tylenol) 650 mg PO Q6H PRN PRN PRN Reason: Non-cardiac pain (mod-severe) Last Admin: 01/18/19 19:46 Dose: 650 mg Hydrocodone Bitart/Acetaminophen (Ray 5mg-325mg) 1 - 2 tablet PO Q6H PRN PRN PRN Reason: Moderate-severe pain Last Admin: 01/18/19 21:12 Dose: 1 tablet Al Hydroxide/Mg Hydroxide (Mylanta Ii) 30 ml PO Q6H PRN PRN PRN Reason: Gastric burning Aspirin (Ecotrin) 81 mg PO DAILY@0800 [facility] Atorvastatin Calcium (Lipitor) 80 mg PO QHS [facility] Last Admin: 01/18/19 21:15 Dose: 80 mg Atropine Sulfate () 0.5 mg IV UD PRN PRN Reason: HR <50 bpm Heparin Sodium (Beef Lung) (Heparin 500 Unit/5 Ml (100/Ml)) 4,000 unit IV UD PRN PRN Reason: HEPARIN FLUSH Last Admin: 01/18/19 13:49 Dose: 4,000 unit Heparin Sodium (Beef Lung) (Heparin 500 Unit/5 Ml (100/Ml)) 500 unit IV UD PRN PRN Reason: HEPARIN FLUSH Hydralazine HCl (Apresoline Iv) 10 mg IV Q4H PRN PRN PRN Reason: SBP > 160 Sodium Chloride () 250 mls @ 15 mls/hr IV .[id number] PRN PRN Reason: SALINE FLUSH Labetalol HCl (Trandate) 5 mg IV X1 PRN PRN Reason: SBP > 160 when pulling sheath Lisinopril (Zestril) 5 mg PO DAILY [facility] Lorazepam (Ativan) 1 mg PO Q6H PRN PRN PRN Reason: BACK SPASMS/ANXIETY Last Admin: 01/18/19 21:15 Dose: 1 mg Magnesium Hydroxide (Milk Of Magnesia) 30 ml PO DAILY PRN PRN PRN Reason: Constipation Metoclopramide HCl (Reglan) 5 mg IV Q6H PRN PRN Reason: NAUSEA/VOMITING Metoprolol Tartrate (Lopressor (Beta Telma)) 12.5 mg PO BID [facility] Last Admin: 01/18/19 21:30 Dose: Not Given Morphine Sulfate () 1 - 2 mg IV Q4H PRN PRN PRN Reason: PAIN Nitroglycerin (Nitrostat) 0.4 mg SUBLINGUAL Q5M PRN PRN Reason: CARDIAC/CHEST PAIN Promethazine HCl (Phenergan) 6.25 mg IV Q4H PRN PRN PRN Reason: NAUSEA/VOMITING Sodium Chloride () 500 ml IV BOLUS PRN PRN Reason: VASO-VAGAL PROTOCOL Sodium Chloride () 5 - 15 ml IV UD PRN PRN Reason: SALINE FLUSH Ticagrelor (Brilinta) 90 mg PO BID [facility] Last Admin: 01/18/19 21:15 Dose: 90 mg Clinical Impression(s) from Imaging Studies Chest X-Ray 01/18/19 13:45 IMPRESSION: Mild degree of vascular congestion. Electronically Signed: Carl Mi, at 14:30 EST , Service support , Code Visit Inpatient E&M: [id number] Subs Hosp L3
--- NOTE | 2019-01-19 08:25 | CRPHASE1 ---
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 Admit Date:: 01/18/19 Phase I Charge:: Level I - Education Risk Factors/Lifestyle Smoking Status: Former smoker Hx Hypertension: Yes Hx Diabetes Mellitus Type 2: No Height: 1.68 m Weight:: 89.358 kg BMI: 31.8 ETOH: No Caffeine: Yes Substance Abuse: No Family History: Heart Disease Laboratory Values: Cardiac Rehab Phase I Labs Hemoglobin A1c 5.6 % (4.2-6.3) 01/18/19 17:30 Triglycerides 103 mg/dL (-199) 01/19/19 04:30 Cholesterol 196 mg/dL (200) 01/19/19 04:30 LDL Cholesterol 136 mg/dL (0-130) H 01/19/19 04:30 HDL Cholesterol 39 mg/dL (40-) L 01/19/19 04:30 Phase I Education Given On:: [place] Issues Affecting Care:: None Knowledge of Condition:: Yes Hospital Course Pain Description: Sharp, Tightness Pain Intensity: 10 Cardiac Cath Date:: 01/18/19 Medical/Surgical History [place]:: No Angina:: Yes Dyslipidemia:: Yes PTCA:: Yes Discharge/Home/Social Eval Discharge Disposition: Home Marital Status: Patient Lives With::
--- NOTE | 2019-01-19 08:29 | CRPHASE1_ITS ---
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 Admit Date:: 01/18/19 Phase I Charge:: Level I - Education Risk Factors/Lifestyle Smoking Status: Former smoker Hx Hypertension: Yes Hx Diabetes Mellitus Type 2: No Height: 1.68 m Weight:: 89.358 kg BMI: 31.8 ETOH: No Caffeine: Yes Substance Abuse: No Family History: Heart Disease Laboratory Values: Cardiac Rehab Phase I Labs Hemoglobin A1c 5.6 % (4.2-6.3) 01/18/19 17:30 Triglycerides 103 mg/dL (-199) 01/19/19 04:30 Cholesterol 196 mg/dL (200) 01/19/19 04:30 LDL Cholesterol 136 mg/dL (0-130) H 01/19/19 04:30 HDL Cholesterol 39 mg/dL (40-) L 01/19/19 04:30 Phase I Education Given On:: [place] Issues Affecting Care:: None Knowledge of Condition:: Yes Hospital Course Pain Description: Sharp, Tightness Pain Intensity: 10 Cardiac Cath Date:: 01/18/19 Medical/Surgical History [place]:: No Angina:: Yes Dyslipidemia:: Yes PTCA:: Yes Discharge/Home/Social Eval Discharge Disposition: Home Marital Status: Patient Lives With::
--- NOTE | 2019-01-19 08:31 | CRPH1.INSTRU ---
General Education CAD and cardiac anatomy and function:: Patient communicates acknowledgment Explanation of diagnoses and procedures:: Patient communicates acknowledgment Sign/Symptoms of [place]:: Patient communicates acknowledgment Antiplatelet therapy: Not instructed Proper use of NTG-SL: Not instructed Emergency procedures and activation of EMS: Patient communicates acknowledgment Compliance of all prescribed medications: Not instructed Smoking Patient Nicotine/Smoking Risk Factors Are:: Non-smoker - quit 25 yrs ago Dyslipidemia Recommendations Include:: Lipid profile not available Overweight/Obesity Overweight/Obesity:: Not instructed Hypertension Hypertension:: Not instructed - on meds Heart Disease Patient Heart Disease Risk Factors Are:: Family history of heart disease < 65 years old Heart Disease Response Code:: Patient communicates acknowledgment Diabetes Patient Diabetes Risk Factors Are:: No documented hx of diabetes Metabolic Syndrome Patient Metabolic Syndrome Risk Factors Are [3 of 5]:: Hypertension Metabolic Syndrome Response Code:: Not instructed Sedentary Recommendations Include:: Aerobic exercise 5-7 times/week for 20-30 minutes continuously, Benefits of regular exercise, Discussed home walking program, Monitored Outpatient Cardiac Rehab Sedentary Response Code:: Patient communicates acknowledgment Stress Patient Stress Risk Factors Are:: Patient denies stress as a risk factor
--- NOTE | 2019-01-19 10:00 | EKG12_ITS ---
Test Reason : AM EKG Blood Pressure : / mmHG Vent. Rate : 060 BPM Atrial Rate : 060 BPM P-R Int : 162 ms QRS Dur : 094 ms QT Int : 412 ms P-R-T Axes : 064 058 058 degrees QTc Int : 412 ms Normal sinus rhythm Normal ECG When compared with ECG of 18-JAN-2019 16:22, MANUAL COMPARISON REQUIRED, DATA IS UNCONFIRMED Confirmed by CARLOZ HARDIN, CLEVELAND ([id number]), writer editor USMAN MERIDA ([id number]) on 01/23/2019 2:47:32 PM Referred By: Gael Diez Confirmed By:CLEVELAND CARTY MD
[2019-01-19] MEDS: Aspirin E.C. 81 MG Tablet PO (10:51)
[2019-01-19] MEDS: Metoprolol Tartrate 25 MG Tablet 12.5 MG PO (10:51)
[2019-01-19] MEDS: TICAGRELOR 90 MG TABLET PO ×2 (10:51→21:23)
--- NOTE | 2019-01-19 11:26 | CASEMGMT ---
SW spoke w/pt in room, pt's was on speaker phone when SW entered room. SW explained to pt that LW/POA forms are not on the chart. Pt asked to bring them in if able, she states she will see what I can do. SAI Duggan, DRIFTMAN
[2019-01-19] MEDS: Magnesium Hydroxide 30 ML UDC PO (13:15)
[2019-01-19] MEDS: Acetaminophen 325 MG Tablet 650 MG PO (13:15)
--- NOTE | 2019-01-19 13:20 | PCM.PN.CARD ---
Subjectve: Patient doing very well this morning. Telemetry showed normal sinus rhythm with 3 beat run of nonsustained ventricular tachycardia. EKG shows normal sinus rhythm with resolving anterior ST elevation myocardial infarction. Echocardiogram at bedside today demonstrates mild to moderate anteroseptal and apical hypokinesis with an overall ejection fraction of about 55-60%. Hemoglobin and creatinine are within nominal limits. Peak troponin is 20 thus far. Right groin is clean/dry/intact with resolving hematoma laterally, as well as within his mid right thigh. No tenderness. No bruits. Objective: Vital Signs Temp Pulse Resp BP Pulse Ox 98.1 F 58 L 14 111/52 L 98 01/19/19 00:00 01/19/19 10:51 01/19/19 06:00 01/19/19 06:00 01/19/19 06:00 Oxygen Delivery Method Room Air Weight: 197 lb 0.011 oz Body Mass Index (BMI) 27.3 Intake and Output for Last 24 Hours 01/17/19 01/18/19 01/19/19 23:59 23:59 23:59 Intake Total 1117 / 1117 Output Total 2250 / 2250 650 / 650 Balance -1133 / -1133 -650 / -650 General: Awake, Alert, Oriented x 3 HEENT: PERRL, EOMI, Sclera Non Icteric Neck: Supple, Good ROM, No Lymph Node Enlargement Lungs: Clear to auscultation Cardiovascular: Regular Rhythm, Normal S1, Normal S2, No Murmurs, No Rubs, No Gallops 01/18/19 13:27: WBC 7.1, RBC 4.88, Hgb 14.7, Hct 43.2, MCV 88.5, MCH 30.1, MCHC 34.0, RDW 12.7, RDW Differential 40.6, Plt Count 263, MPV 9.7, Immature Gran % (Auto) 0.000, Neut % (Auto) 73.5 H, Lymph % (Auto) 18.0 L, [place] % (Auto) 7.2, Eos % (Auto) 1.0, Baso % (Auto) 0.3, Absolute Neuts (auto) 5.2, Total Counted Not Reportable 01/18/19 13:27: Sodium 137, Potassium 3.4 L, Chloride 105, Carbon Dioxide 22.0, Anion Gap 10, BUN 20 H, Creatinine 1.05, Est GFR (MDRD) Af Amer 91, Est GFR (MDRD) Non-Af 75, BUN/Creatinine Ratio 19.0, Glucose 158 H, Calcium 9.2, Troponin I < 0.015 01/18/19 13:27: D-Dimer Quant (PE/DVT) 0.50 H 01/18/19 17:30: Hemoglobin A1c 5.6 01/18/19 17:30: Magnesium 2.1, Troponin I 20.000 H* 01/19/19 04:30: WBC 7.4, RBC 4.42 L, Hgb 13.1, Hct 39.5 L, MCV 89.4, MCH 29.6, MCHC 33.2, RDW 13.0, RDW Differential 41.9, Plt Count 251, MPV 9.4 01/19/19 04:30: Sodium 142, Potassium 4.1, Chloride 110 H, Carbon Dioxide 25.0, Anion Gap 7, BUN 15, Creatinine 0.98, Est GFR (MDRD) Af Amer 99, Est GFR (MDRD) Non-Af 82, BUN/Creatinine Ratio 15.4, Glucose 105, Calcium 8.4 L, Total Bilirubin 0.40, Triglycerides 103, Cholesterol 196, LDL Cholesterol 136 H, VLDL Cholesterol 21, HDL Cholesterol 39 L Rhythm: EKG: ECHO: Stress Test: Cardiac Cath: PCI: CT Surgery: Holter monitor: EPS: PPM: CXR: Chest CT Scan: Medical Necessity - Tobacco Use Smoking Status: Former smoker Tobacco Use: Non-smoker Assessment/Plan 1. Coronary artery disease: Patient presented with acute anterior wall myocardial infarction requiring complex angioplasty and stenting of his LAD, and diagonal branches x2 stents. He is tolerating aspirin and Brilinta well. His right groin is clean/dry/intact with a resolving hematoma which is soft, nontender, and has no bruits. Would recommend the patient get up to a chair today, and possibly ambulate by this evening. Would recommend close monitoring of his right groin and if the patient develops tenderness, bruits, or worsening hematoma, he may require ultrasound evaluation. His echocardiogram demonstrates mild anteroseptal and apical hypokinesis which will hopefully improve with the assistance of emergent angioplasty and stenting, medical therapy and eventually cardiac rehab. We will repeat his echocardiogram in 3 months time. He has no other coronary arteries which require intervention at this time. 2. Hyperlipidemia: Continue Lipitor therapy. Repeat lipid profile in 6 weeks time. 3. Would recommend continuing ICU observation for 1 more day given his acute MA, and groin hematoma. If however a bed is needed for a critically ill patient, the patient may be transferred to telemetry stepdown unit. 4. Thank you very much for the opportunity to participate in the cardiac care of your patient. Code Visit Inpatient E&M: [id number] Subs Hosp L2
[2019-01-19] MEDS: Lisinopril 5 MG Tablet PO (15:37)
[2019-01-19] MEDS: Atorvastatin Calcium 80 MG Tablet PO (21:23)
[2019-01-20] VITALS (24 sets, daily range): BP systolic 79–103; BP diastolic 28–68; PULSE 52–70; RESP 12–19; TEMP 36.4–37.1; O2SAT 95–100
--- NOTE | 2019-01-20 07:24 | PCM.PN.HOSP ---
Patient Problems: Active and Suspected Problems (Last Updated 01/19/19 @ 10:44 by Prema Singh) STEMI (ST elevation myocardial infarction) (Acute) Subjective: Patient seen blood pressure slightly low this a.m. however he denies any lightheadedness Objective: GENERAL: cooperative HEENT: Atraumatic; moist oral mucosa EYES; Anicteric, Normal Conjunctiva NECK; supple, normal thyroid, no distended JVD. RESPIRATORY: Diminished to auscultation bilaterally, CARDIOVASCULAR: Regular S1 S2, no audible murmurs GI: soft, non-tender, normoactive bowel sounds, : No Renal angle tenderness; EXTREMITIES: No edema, no clubbing, no cyanosis. NEURO: Awake; no lateralizing signs. SKIN: No Rash PSYCH; Normal affect Vitals/I&O's: Vital Signs Temp Pulse Resp BP Pulse Ox 98.2 F 59 L 14 89/65 L 98 01/20/19 00:00 01/20/19 07:00 01/20/19 07:00 01/20/19 07:00 01/20/19 07:15 Oxygen Delivery Method Room Air Weight: 89 kg Body Mass Index (BMI) 27.3 Intake and Output for Last 24 Hours 01/18/19 01/19/19 01/20/19 23:59 23:59 23:59 Intake Total 1117 / 1117 750 / 750 2640 / 2640 Output Total 2250 / 2250 1650 / 1650 850 / 850 Balance -1133 / -1133 -900 / -900 1790 / 1790 Current Medications Acetaminophen (Tylenol) 650 mg PO Q6H PRN PRN PRN Reason: Non-cardiac pain (mod-severe) Last Admin: 01/19/19 13:15 Dose: 650 mg Hydrocodone Bitart/Acetaminophen ([place] 5mg-325mg) 1 - 2 tablet PO Q6H PRN PRN PRN Reason: Moderate-severe pain Last Admin: 01/18/19 21:12 Dose: 1 tablet Al Hydroxide/Mg Hydroxide (Mylanta Ii) 30 ml PO Q6H PRN PRN PRN Reason: Gastric burning Aspirin (Ecotrin) 81 mg PO DAILY@0800 [facility] Last Admin: 01/19/19 10:51 Dose: 81 mg Atorvastatin Calcium (Lipitor) 80 mg PO QHS [facility] Last Admin: 01/19/19 21:23 Dose: 80 mg Atropine Sulfate () 0.5 mg IV UD PRN PRN Reason: HR <50 bpm Calcium Polycarbophil (Fibercon) 625 mg PO BID PRN PRN PRN Reason: Constipation Heparin Sodium (Beef Lung) (Heparin 500 Unit/5 Ml (100/Ml)) 4,000 unit IV UD PRN PRN Reason: HEPARIN FLUSH Last Admin: 01/18/19 13:49 Dose: 4,000 unit Heparin Sodium (Beef Lung) (Heparin 500 Unit/5 Ml (100/Ml)) 500 unit IV UD PRN PRN Reason: HEPARIN FLUSH Hydralazine HCl (Apresoline Iv) 10 mg IV Q4H PRN PRN PRN Reason: SBP > 160 Sodium Chloride () 250 mls @ 15 mls/hr IV .[id number] PRN PRN Reason: SALINE FLUSH Labetalol HCl (Trandate) 5 mg IV X1 PRN PRN Reason: SBP > 160 when pulling sheath Lisinopril (Zestril) 5 mg PO DAILY [facility] Last Admin: 01/19/19 15:37 Dose: 5 mg Lorazepam (Ativan) 1 mg PO Q6H PRN PRN PRN Reason: BACK SPASMS/ANXIETY Last Admin: 01/18/19 21:15 Dose: 1 mg Magnesium Hydroxide (Milk Of Magnesia) 30 ml PO DAILY PRN PRN PRN Reason: Constipation Last Admin: 01/19/19 13:15 Dose: 30 ml Metoclopramide HCl (Reglan) 5 mg IV Q6H PRN PRN Reason: NAUSEA/VOMITING Metoprolol Tartrate (Lopressor (Beta Telma)) 12.5 mg PO BID [facility] Last Admin: 01/19/19 21:24 Dose: Not Given Morphine Sulfate () 1 - 2 mg IV Q4H PRN PRN PRN Reason: PAIN Nitroglycerin (Nitrostat) 0.4 mg SUBLINGUAL Q5M PRN PRN Reason: CARDIAC/CHEST PAIN Promethazine HCl (Phenergan) 6.25 mg IV Q4H PRN PRN PRN Reason: NAUSEA/VOMITING Sodium Chloride () 500 ml IV BOLUS PRN PRN Reason: VASO-VAGAL PROTOCOL Sodium Chloride () 5 - 15 ml IV UD PRN PRN Reason: SALINE FLUSH Ticagrelor (Brilinta) 90 mg PO BID [facility] Last Admin: 01/19/19 21:23 Dose: 90 mg Medical Necessity - Tobacco Use Smoking Status: Former smoker Tobacco Use: Non-smoker Assessment/Plan All Active Problems (Last Updated 01/19/19 @ 10:44 by Prema Singh) STEMI (ST elevation myocardial infarction) (Acute) Abscess of sigmoid colon due to diverticulitis (Acute) Patient is a 68-year-old gentleman who presented with chest pain and assessment of acute ST segment elevation [place] made patient underwent emergency left heart catheterization with intervention 1. Acute STEMI; underwent emergency left heart catheterization findings included normal LVEF and double vessel CAD involving the LAD and diagonal. Patient had PTCA/DENZEL to mid LAD lesion and PTCA/DENZEL to mid diagonal lesion and PTCA to an ostial diagonal lesion. Subsequently admitted to the intensive care unit. Patient has already been seen in consultation by Dr. Diez who did perform the intervention repeat echo obtained on 01/19/2019 demonstrated EF of 55-60%. 2. Hypokalemia: Admission K+ 3.4, treated per protocol 3. Hyperglycemia: Admission glucose 158, A1c was 5.6 diabetes ruled out is ruled out 4. BMI of 31.8 weight loss advised 5. DVT prophylaxis: SCD, Lovenox Code Visit Inpatient E&M: [id number] Subs Hosp L2
[2019-01-20] MEDS: Metoprolol Tartrate 25 MG Tablet 12.5 MG PO (09:25)
[2019-01-20] MEDS: Aspirin E.C. 81 MG Tablet PO (09:25)
[2019-01-20] MEDS: TICAGRELOR 90 MG TABLET PO ×2 (09:25→21:19)
--- NOTE | 2019-01-20 09:40 | PCM.PN.CARD ---
Subjectve: Patient doing very well this morning. His right groin is much softer, ambulating without difficulty several times around the unit. Denies any chest pain or angina. Echocardiogram yesterday showed evidence of mid anterior and apical hypokinesis. Peak troponin thus far was 20. Telemetry has showed normal sinus rhythm with several episodes of nonsustained ventricular tachycardia. Beta-duyen was held several times yesterday due to concerns of bradycardia. Objective: Vital Signs Temp Pulse Resp BP Pulse Ox 98.2 F 58 L 14 84/68 L 98 01/20/19 00:00 01/20/19 09:25 01/20/19 07:00 01/20/19 09:25 01/20/19 07:15 Oxygen Delivery Method Room Air Weight: 196 lb 3.382 oz Body Mass Index (BMI) 27.3 Intake and Output for Last 24 Hours 01/18/19 01/19/19 01/20/19 23:59 23:59 23:59 Intake Total 1117 / 1117 750 / 750 2640 / 2640 Output Total 2250 / 2250 1650 / 1650 850 / 850 Balance -1133 / -1133 -900 / -900 1790 / 1790 General: Awake, Alert, Oriented x 3 HEENT: PERRL, EOMI, Sclera Non Icteric Neck: Supple, Good ROM, No Lymph Node Enlargement Lungs: Clear to auscultation Cardiovascular: Regular Rhythm, Normal S1, Normal S2, No Murmurs, No Rubs, No Gallops Vascular: No Carotid Bruits, Normal Femoral Pulses, Normal Radial Pulses, Normal Dorsalis Pedal Pulse, Normal Posterior Tibial Pulses Abdomen: Bowel Sounds Present, Soft, Non Tender, No HSM, No Organomegaly Extremities: No Cyanosis, No Clubbing, No edema Neurological: No Focal Motor or Sensory Deficit Rhythm: EKG: ECHO: LVEF around 55%, with mid anterior septal and apical hypokinesis. Stress Test: Cardiac Cath: PCI: CT Surgery: Holter monitor: EPS: PPM: CXR: Chest CT Scan: Medical Necessity - Tobacco Use Smoking Status: Former smoker Tobacco Use: Non-smoker Assessment/Plan 1. Coronary artery disease: Patient presented with acute anterior wall myocardial infarction requiring complex angioplasty and stenting of his LAD, and diagonal branches x2 stents. He is tolerating aspirin and Brilinta well. His right groin is clean/dry/intact with a resolving hematoma which is soft, nontender, and has no bruits. Patient may continue to ambulate around the [facility], may be downgraded to stepdown/PCU. I would recommend that he continue telemetry monitoring for 24 more hours given his nonsustained ventricular tachycardia and limitations with giving him his beta-duyen. Would recommend holding his lisinopril at this time in lieu of giving him his beta-duyen to assist with suppression of PVCs and NSVT. If the patient has no further ventricular tachycardia overnight, he may be discharged home tomorrow. If however the patient has multiple episodes of nonsustained ventricular tachycardia, he may require an additional day of monitoring. I have explained this thoroughly to the patient this morning and confirm this with the nurse and Dr. Penn. Would recommend close monitoring of his right groin and if the patient develops tenderness, bruits, or worsening hematoma, he may require ultrasound evaluation. His echocardiogram demonstrates mild anteroseptal and apical hypokinesis which will hopefully improve with the assistance of emergent angioplasty and stenting, medical therapy and eventually cardiac rehab. We will repeat his echocardiogram in 3 months time. He has no other coronary arteries which require intervention at this time. 2. Hyperlipidemia: Continue Lipitor therapy. Repeat lipid profile in 6 weeks time. 3. Patient may be transferred to stepdown/PCU. He will follow-up with Dr. Diez going forward. No additional angioplasty needed at this time. Code Visit Inpatient E&M: 33656 Subs Hosp L2
--- NOTE | 2019-01-20 10:00 | EKG12_ITS ---
Test Reason : AM EKG Blood Pressure : / mmHG Vent. Rate : 057 BPM Atrial Rate : 057 BPM P-R Int : 174 ms QRS Dur : 096 ms QT Int : 426 ms P-R-T Axes : 063 061 069 degrees QTc Int : 414 ms Sinus bradycardia T wave abnormality, consider anterior ischemia Abnormal ECG When compared with ECG of 19-JAN-2019 05:31, MANUAL COMPARISON REQUIRED, DATA IS UNCONFIRMED Confirmed by CARLOZ HARDIN, C[place]AND ([id number]), editor greeting card USMAN MERIDA ([id number]) on 01/23/2019 2:50:40 PM Referred By: Gael Diez Confirmed By:CLEVELAND CARTY MD
--- NOTE | 2019-01-20 10:00 | NURSING ---
report called to [facility]. pt to [id number]
[2019-01-20] MEDS: Atorvastatin Calcium 80 MG Tablet PO (21:19)
[2019-01-21 03:00] VITALS: BP 107/37; PULSE 62; PULSE 72; RESP 16; TEMP 37.6; O2SAT 95
[2019-01-21 05:20] VITALS: BP 103/54; PULSE 60; RESP 16; TEMP 37.4; O2SAT 95
[2019-01-21] MEDS: Acetaminophen 325 MG Tablet 650 MG PO (05:31)
[2019-01-21 07:49] VITALS: PULSE 55
[2019-01-21 07:50] VITALS: O2SAT 98
[2019-01-21 08:49] VITALS: BP 113/52; PULSE 66
[2019-01-21] MEDS: Aspirin E.C. 81 MG Tablet PO (08:49)
[2019-01-21] MEDS: Metoprolol Tartrate 25 MG Tablet 12.5 MG PO (08:49)
[2019-01-21] MEDS: TICAGRELOR 90 MG TABLET PO (08:49)
[2019-01-21 08:54] VITALS: BP 113/52; PULSE 66; RESP 16; TEMP 36.6; O2SAT 98
--- NOTE | 2019-01-21 09:30 | DCINST_ITS ---
- Discharge Diagnoses Current Active Problems: Current Active and Chronic Problems (Last Updated 01/19/19 @ 10:44 by Prema Singh) Arteriosclerosis of coronary artery in patient with history of myocardial infarction (Chronic) Stented coronary artery (Chronic 01/18/19) Successful PTCA/DENZEL mid DIAG#1 with a 2.5 x 12 Promus Synergy, 85%-->0%, no dissection. Successful PCI with PTCA to the ostial DIAG#1 prior to and after stent deployment in the LAD, utilizing a 2.5 x 8 balloon; 85%--50%, no dissection. No additional stenting performed as pt had <50% residual stenosis, was chest pain free, acute angle of the bifurcation and concern over protruding into LAD and causing in stent thrombosis. Successful PTCA/DENZEL mid LAD with a 3.0 x STEMI (ST elevation myocardial infarction) (Acute) You will use the following diet at home:: Cardiac Discharge Activity: Return to Normal Activity Allergies/Adverse Reactions: Allergies ondansetron [From Zofran (as hydrochloride)] Adverse Reaction (Verified 01/19/19 02:31) HALLUCINATIONS Medications to take at Discharge Aspirin E.C. [Ecotrin] 81 mg PO DAILY@0800 #30 tab 01/21/19 Atorvastatin Calcium [Lipitor] 80 mg PO QHS #30 tab 01/21/19 Metoprolol Tartrate [Lopressor (beta duyen)] 12.5 mg PO BID #60 tab 01/21/19 Ticagrelor [Brilinta] 90 mg PO BID #60 tab 01/21/19 The following prescriptions were given: Aspirin E.C. [Ecotrin] 81 mg PO DAILY@0800 #30 tab Atorvastatin Calcium [Lipitor] 80 mg PO QHS #30 tab Metoprolol Tartrate [Lopressor (beta duyen)] 12.5 mg PO BID #60 tab Ticagrelor [Brilinta] 90 mg PO BID #60 tab Orders to be completed after discharge: Phase II, Outpatient Cardiac Rehab Location: None Selected Primary Care Physician: Davy Gallagher MD [Primary Care Provider] - Please follow up with your Primary Care Physician in: in 5-7 days Test Results: Test results from this visit will be discussed in further detail at your follow- up appointment, if applicable. Please Follow Up With: Gael Diez MD When: in 2-4 weeks Proposed Discharge Date: 01/21/19
--- NOTE | 2019-01-21 09:31 | PN.CARD_ITS ---
Subjectve: Patient seen and evaluated. Appears to be doing well. No complaints. Objective: Vital Signs Temp Pulse Resp BP Pulse Ox 97.9 F 66 16 113/52 L 98 01/21/19 08:54 01/21/19 08:54 01/21/19 08:54 01/21/19 08:54 01/21/19 08:54 Oxygen Delivery Method Room Air Weight: 196 lb 13.965 oz Body Mass Index (BMI) 27.3 Intake and Output for Last 24 Hours 01/19/19 01/20/19 01/21/19 23:59 23:59 23:59 Intake Total 750 / 750 3180 / 3180 490 / 490 Output Total 1650 / 1650 850 / 850 Balance -900 / -900 2330 / 2330 490 / 490 General: Awake, Alert, Oriented x 3 HEENT: PERRL, EOMI, Sclera Non Icteric Neck: Supple, Good ROM, No Lymph Node Enlargement Lungs: Clear to auscultation Cardiovascular: Regular Rhythm, Normal S1, Normal S2, No Murmurs, No Rubs, No Gallops Vascular: No Carotid Bruits, Normal Femoral Pulses, Normal Radial Pulses, Normal Dorsalis Pedal Pulse, Normal Posterior Tibial Pulses Abdomen: Bowel Sounds Present, Soft, Non Tender, No HSM, No Organomegaly Extremities: No Cyanosis, No Clubbing, No edema Neurological: No Focal Motor or Sensory Deficit Rhythm: EKG: ECHO: Stress Test: Cardiac Cath: PCI: CT Surgery: Holter monitor: EPS: PPM: CXR: Chest CT Scan: Medical Necessity - Tobacco Use Smoking Status: Former smoker Tobacco Use: Non-smoker Assessment/Plan 1. Coronary artery disease: Patient presented with acute anterior wall myocardial infarction requiring complex angioplasty and stenting of his LAD, and diagonal branches x2 stents. He is tolerating aspirin and Brilinta well. His right groin is clean/dry/intact with a resolving hematoma which is soft, nontender, and has no bruits. * Hemoglobin remained stable with no significant drop in creatinine also remained stable with no significant rise. * He has been doing well with the beta-duyen and has had no further episodes of nonsustained ventricular tachyarrhythmia. Would recommend close monitoring of his right groin and if the patient develops tenderness, bruits, or worsening hematoma, he may require ultrasound evaluation. His echocardiogram demonstrates mild anteroseptal and apical hypokinesis which will hopefully improve with the assistance of emergent angioplasty and stenting, medical therapy and eventually cardiac rehab. We will repeat his echocardiogram in 3 months time. He has no other coronary arteries which require intervention at this time. 2. Hyperlipidemia: Continue Lipitor therapy. Repeat lipid profile in 6 weeks time. 3. Patient can be discharged for outpatient follow-up. Follow-up set up with Dr. Diez.
--- NOTE | 2019-01-21 09:31 | PCM.DC.SUM ---
Discharge Date and Diagnosis - Problem List Patient Problems: Active and Suspected Problems (Last Updated 01/19/19 @ 10:44 by Prema Singh) STEMI (ST elevation myocardial infarction) (Acute) Date of Admission: 01/18/19 Date of Discharge: 01/21/19 - Primary Discharge Diagnosis Active and Suspected Problems (Last Updated 01/19/19 @ 10:44 by Prema Singh) STEMI (ST elevation myocardial infarction) (Acute) - Secondary Discharge Diagnosis Chronic Problems (Last Updated 01/19/19 @ 10:44 by Prema Singh) Arteriosclerosis of coronary artery in patient with history of myocardial infarction (Chronic) Stented coronary artery (Chronic 01/18/19) Successful PTCA/DENZEL mid DIAG#1 with a 2.5 x 12 Promus Synergy, 85%-->0%, no dissection. Successful PCI with PTCA to the ostial DIAG#1 prior to and after stent deployment in the LAD, utilizing a 2.5 x 8 balloon; 85%--50%, no dissection. No additional stenting performed as pt had <50% residual stenosis, was chest pain free, acute angle of the bifurcation and concern over protruding into LAD and causing in stent thrombosis. Successful PTCA/DENZEL mid LAD with a 3.0 x Diverticulosis of colon (Chronic) Hospital Course and Treatment Summary of Care Provided: Patient is a 68-year-old gentleman who presented with chest pain and assessment of acute ST segment elevation MN made patient underwent emergency left heart catheterization with intervention 1. Acute STEMI; underwent emergency left heart catheterization findings included normal LVEF and double vessel CAD involving the LAD and diagonal. Patient had PTCA/DENZEL to mid LAD lesion and PTCA/DENZEL to mid diagonal lesion and PTCA to an ostial diagonal lesion. Subsequently admitted to the intensive care unit. Patient has already been seen in consultation by Dr. Diez who did perform the intervention repeat echo obtained on 01/19/2019 demonstrated EF of 55-60%. 2. Hypokalemia: Admission K+ 3.4, treated per protocol 3. Hyperglycemia: Admission glucose 158, A1c was 5.6 diabetes ruled out is ruled out 4. BMI of 31.8 weight loss advised 5. DVT prophylaxis: SCD, Lovenox Patient Problems: Active and Suspected Problems (Last Updated 01/19/19 @ 10:44 by Prema Singh) STEMI (ST elevation myocardial infarction) (Acute) Objective: GENERAL: cooperative HEENT: Atraumatic; moist oral mucosa EYES; Anicteric, Normal Conjunctiva NECK; supple, normal thyroid, no distended JVD. RESPIRATORY: Diminished to auscultation bilaterally, CARDIOVASCULAR: Regular S1 S2, no audible murmurs GI: soft, non-tender, normoactive bowel sounds, : No Renal angle tenderness; EXTREMITIES: No edema, no clubbing, no cyanosis. NEURO: Awake; no lateralizing signs. SKIN: No Rash PSYCH; Normal affect - Physical Exam Vital Signs Temp Pulse Resp BP Pulse Ox 97.9 F 66 16 113/52 L 98 01/21/19 08:54 01/21/19 08:54 01/21/19 08:54 01/21/19 08:54 01/21/19 08:54 Oxygen Delivery Method Room Air Weight: 89.3 kg Body Mass Index (BMI) 27.3 Intake and Output for Last 24 Hours 01/19/19 01/20/19 01/21/19 23:59 23:59 23:59 Intake Total 750 / 750 3180 / 3180 490 / 490 Output Total 1650 / 1650 850 / 850 Balance -900 / -900 2330 / 2330 490 / 490 Discharge Diet: Low fat/ Low Cholesterol Discharge Activity: Return to Normal Activity Home Medications: Medications to take at Discharge Aspirin E.C. [Ecotrin] 81 mg PO DAILY@0800 #30 tab 01/21/19 Atorvastatin Calcium [Lipitor] 80 mg PO QHS #30 tab 01/21/19 Metoprolol Tartrate [Lopressor (beta telma)] 12.5 mg PO BID #60 tab 01/21/19 Ticagrelor [Brilinta] 90 mg PO BID #60 tab 01/21/19 Following Prescrptions Were Given to Patient: Aspirin E.C. [Ecotrin] 81 mg PO DAILY@0800 #30 tab Atorvastatin Calcium [Lipitor] 80 mg PO QHS #30 tab Metoprolol Tartrate [Lopressor (beta telma)] 12.5 mg PO BID #60 tab Ticagrelor [Brilinta] 90 mg PO BID #60 tab Other Amb Orders: Phase II, Outpatient Cardiac Rehab Location: None Selected Primary Care Physician: Davy Gallagher MD [Primary Care Provider] - Please follow up with your Primary Care Physician in: in 5-7 days Please Follow Up With: Gael Diez MD When: in 2-4 weeks Disposition: Home Minutes spent on discharge:: 35 Patient Condition:: Stable Medical Necessity - Tobacco Use Smoking Status: Former smoker Tobacco Use: Non-smoker Meaningful Use Info Meaningful Use Diagnoses (Choose all that apply): AMI - AMI Aspirin given w/in 24hrs of arrival?: Yes ASA at discharge?: Yes Statins at discharge?: Yes Mikel/ARB at discharge?: No Reason Mikel/ARB not ordered:: Hypotension Beta Telma at discharge?: Yes Done w/ Acute MN measure.: Yes Code Visit Inpatient E&M: 20642 Disch Hosp
--- NOTE | 2019-01-21 09:57 | CASEMGMT ---
[facility] and call [facility] at this time. This RN CM spoke with pharmacist and updated pt's insurance info at this time. Per pharmacist, pt's co-pay is $75. This RN CM attempted to apply the Brilinta commercial co-pay card at this time as pt has [employer] as primary insurance but according to pharmacist, it will not go through and states that pt has MCR. This RN CM then had pharmacist apply the Brilinta 30 day free card at this time and it was successful. Pt/ updated on all at this time, voice understanding. Jeremias RN LEISA
--- NOTE | 2019-01-21 10:00 | EKG12_ITS ---
Test Reason : Blood Pressure : / mmHG Vent. Rate : 057 BPM Atrial Rate : 057 BPM P-R Int : 154 ms QRS Dur : 098 ms QT Int : 394 ms P-R-T Axes : 062 060 066 degrees QTc Int : 383 ms Sinus bradycardia Otherwise normal ECG When compared with ECG of 20-JAN-2019 05:46, MANUAL COMPARISON REQUIRED, DATA IS UNCONFIRMED Confirmed by CARLOZ HARDIN, [place] ([id number]), copy editor USMAN MERIDA ([id number]) on 01/24/2019 1:17:04 PM Referred By: Gael Diez Confirmed By:CLEVELAND CARTY MD
--- NOTE | 2019-01-23 16:27 | CASEMGMT ---
BRENDEN DE LA FUENTE Discharge Follow-up Phone Call: CHEYANNE: Marjorie Strata: 3 Call Date: 01/23/19 Discharge Date: 01/21/19 Time of Call: 1625 Duration: 5 min Admitting Diagnosis: STEMI BRENDEN DE LA FUENTE completed follow-up phone call after recent hospitalization. Patient states he is doing well and watching bruise on leg. Patient was aware and knew times of follow-up appts. Patient states that he is checking blood pressure daily. 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 Patient denied any questions regarding discharge instructions. Patient did not have any further questions at this time.
== END 2019-01-21 10:13 | disposition home or self-care (01) | DRG 247 ==
LOC: ED 13:50 → ICU 13:53 → PCU 01-20 10:05
PROVIDERS: Admitting Provider Family Medicine; Emergency Provider Emergency Medicine; Family Provider Family Medicine; PCP Family Medicine; Referring Provider Internal Medicine Cardiovascular Disease; Visit Provider Internal Medicine Cardiovascular Disease
DX: I21.09 ST elevation (STEMI) myocardial infarction involving other coronary artery of anterior wall (principal); L76.32 Postprocedural hematoma of skin and subcutaneous tissue following other procedure; I47.2 Ventricular tachycardia; I25.110 Atherosclerotic heart disease of native coronary artery with unstable angina pectoris; K57.30 Diverticulosis of large intestine without perforation or abscess without bleeding; E87.6 Hypokalemia; Z87.891 Personal history of nicotine dependence; R73.9 Hyperglycemia, unspecified; E78.5 Hyperlipidemia, unspecified; Y84.0 Cardiac catheterization as the cause of abnormal reaction of the patient, or of later complication, without mention of misadventure at the time of the procedure
CPT/HCPCS: 71045; 80048; 80053; 80061; 82962; 83036; 83690; 83735; 84484; 85025; 85027; 85347; 85379; 92928; 92941; 93005; 93306; 93458; 97802; 99284; C1760; J7030; J7040; A4216; C1725; C1769; C1874; C1887; C1894; C9600; C9606; J1327; Q9967

== ENCOUNTER → 2019-05-03 14:41 | Outpatient (CLI) | payer OTHER, SELFPAY ==
[2019-01-19 08:30] VITALS: BMI 31.8
[2019-02-01 14:30] VITALS: BMI 27.3
--- NOTE | 2019-05-03 14:42 | ECHOD_ITS ---
Reason For Study: CAD/ASHD Procedure This was a limited 2D transthoracic echocardiogram. Exam performed in department. Left Ventricle Normal size and thickness. The estimated ejection fraction is 65 %. No regional wall motion abnormalities noted. Right Ventricle Normal size and thickness. Normal systolic function. Atria Normal left atrium. Normal right atrium. Normal atrial septum. Mitral Valve The mitral valve is structurally normal. No prolapse or stenosis seen. Tricuspid Valve Normal tricuspid valve. Unable to estimate RV systolic pressure due to insufficient tricuspid regurgitant envelope. Aortic Valve Normal aortic valve. Trisinus/trileaflet aortic valve. Pulmonic Valve Normal pulmonic valve. Great Vessels Normal aortic root. Normal arch. Normal inferior vena cava. Inferior vena cava collapse with sniff. Pericardium/Pleural No pericardial effusion. MMode/2D Measurements & Calculations LVIDd: 4.7 cm IVSd: 0.91 cm Ao root diam: 3.6 cm LVIDs: 3.2 cm LVPWd: 1.00 cm FS: 33.0 % LAV(MOD-bp): 49.8 ml LA A4 area: 18.4 cm2 LA dimension(2D): 3.9 cm LAV(MOD-bp) Indexed: 23.9 ml/m2 LAV(MOD-sp2): 50.3 ml LAV(MOD-sp4): 47.6 ml RA A4 area: 15.5 cm2 Interpretation Summary The estimated ejection fraction is 65 %. Unable to estimate RV systolic pressure due to insufficient tricuspid regurgitant envelope. Compared to echo report dated 01/19/2019, LV Function and anterior wall motion abnormalities have normalized. Ordering Physician: Davy Matute/Gael Diez Referring Physician: GINO PANDEY Performed By: Vianney Mayers RDCS, RVT
== END ==
PROVIDERS: Family Provider Family Medicine; PCP Family Medicine; Referring Provider Nurse Practitioner Family; Visit Provider Nurse Practitioner Family
DX: I25.10 Atherosclerotic heart disease of native coronary artery without angina pectoris (principal); I21.3 ST elevation (STEMI) myocardial infarction of unspecified site; Z95.5 Presence of coronary angioplasty implant and graft
CPT/HCPCS: 93308

== ENCOUNTER → 2019-05-11 07:59 | Outpatient (CLI) | payer OTHER, SELFPAY ==
[2019-01-19 08:30] VITALS: BMI 31.8
[2019-02-01 14:30] VITALS: BMI 27.3
[2019-05-11 10:27] LABS: Rubella IgG > 500.0 IU/mL
[2019-05-11 10:34] LABS: AST(SGOT) 40 U/L (15-37); Alanine Aminotransfer ALT/SGPT 75 U/L (16-61); Albumin, Serum 3.8 g/dL (3.2-5.0); Alkaline Phosphatase 81 U/L (45-117); Anion Gap 5 (5-15); BUN 24 mg/dL (7-18); BUN/Creat Ratio 25.4 RATIO (10-20); Calcium,Total 9.1 mg/dL (8.5-10.1); Chloride 109 mmol/L (98-107); Cholesterol 123 mg/dL (200); Creatinine, Serum 0.94 mg/dL (0.70-1.30); EST Glomerular Filtration Rate 85 mL/min (>60); Est Glom Filt Rate - Afr Amer 102 mL/min (>60); Globulin 3.8 g/dL (2.2-4.2); Glucose 95 mg/dL (74-106); High Density Lipoprotein 33 mg/dL; Potassium 4.1 mmol/L (3.5-5.1); Protein, Total 7.6 g/dL (6.4-8.2); Sodium Level 140 mmol/L (136-145); Triglycerides 108 mg/dL; Very Low Density Lipoprotein 22 mg/dL (5-40)
[2019-05-15 11:31] LABS: Mumps Antibody,IgG 44.5 AU/mL (Immune >10.9)
== END ==
PROVIDERS: Family Provider Family Medicine; PCP Family Medicine; Referring Provider Family Medicine; Visit Provider Family Medicine
DX: Z01.84 Encounter for antibody response examination (principal); R94.5 Abnormal results of liver function studies; E78.00 Pure hypercholesterolemia, unspecified
CPT/HCPCS: 36415; 80053; 80061; 82248; 86735; 86762; 86765

== ENCOUNTER → 2019-06-01 10:53 | Outpatient (CLI) | payer OTHER, SELFPAY ==
[2019-01-19 08:30] VITALS: BMI 31.8
[2019-05-11 14:25] VITALS: BMI 26.8
== END ==
PROVIDERS: Family Provider Family Medicine; PCP Family Medicine; Referring Provider Physician Assistant Medical; Visit Provider Physician Assistant Medical
DX: R00.1 Bradycardia, unspecified (principal)
CPT/HCPCS: 93225; 93226

== ENCOUNTER → 2019-06-21 10:37 | Outpatient (CLI) | payer OTHER, SELFPAY ==
[2019-01-19 08:30] VITALS: BMI 31.8
[2019-05-11 14:25] VITALS: BMI 26.8
--- NOTE | 2019-06-21 10:39 | STEWCON_ITS ---
Reason For Study: ARRHYTHMIA Stress Results Protocol: Herb Protocol WITH DEFINITY Maximum Predicted HR: 154 bpm Target HR: 131 bpm % Maximum Predicted HR: 88 % DurationHeart Rate Stage (mm:ss) (bpm) BP Comment BASELINE 60 112/782 CC DEFINITY STAGE 1 3:00 82 124/70 STAGE 2 3:00 93 150/70 STAGE 3 3:00 123 184/72 STAGE 4 1:46 136 / INCREASED SOB, 1 CC DEFINITY RECOVERY 75 114/60 Stress Duration: 10:46 mm:ss Maximum Stress HR: 136 bpm Baseline Echocardiogram Findings The estimated ejection fraction is 65 %. Stress Echo Wall motion Data Resting WM Intermediate WM Stress WM Resting Wall Motion Wall Motion Stress No regional wall motion No regional wall motion abnormalities noted. abnormalities noted. EKG Data The baseline ECG displays normal sinus rhythm. The patient exercised according to the regular Herb protocol for a total duration of 9:46. The maximum heart rate attained was 139 beats per minute. This was 90% of maximum predicted heart rate. The patient exercised into stage 4 of the Herb protocol. During stress, there were no ST or T wave changes noted to suggest ischemia. No clinical angina was noted. Interpretation Summary The estimated ejection fraction is 65 %. Normal, adequate, treadmill echocardiogram. Negative for ischemia by EKG and echocardiographic criteria. No anginal symptoms noted. Rare PVCs noted. Appropriate blood pressure response to exercise. Average exercise capacity for age. Final LVEF is 75%. Decreased sensitivity due to poor echo windows requiring Definity agent. Test terminated due to dyspnea. No complications. The study was technically difficult. Contrast injection was performed. Ordering Physician: Gael Diez MD Referring Physician: Gael Diez Performed By: Vianney Mayers, RDCS, RVT
== END ==
PROVIDERS: Family Provider Family Medicine; PCP Family Medicine; Referring Provider Internal Medicine Cardiovascular Disease; Visit Provider Internal Medicine Cardiovascular Disease
DX: I25.10 Atherosclerotic heart disease of native coronary artery without angina pectoris (principal); I49.3 Ventricular premature depolarization; I25.2 Old myocardial infarction; Z95.5 Presence of coronary angioplasty implant and graft
CPT/HCPCS: 93017; 93350; Q9957; A4216; C8928

== ENCOUNTER 2019-07-05 08:48 | Day surgery (SDC) | payer OTHER, SELFPAY ==
[2019-01-19 08:30] VITALS: BMI 31.8
[2019-07-03 15:21] VITALS: BMI 26.7
--- NOTE | 2019-07-03 16:38 | RAD_ITS ---
STUDY: X-RAY CHEST REASON FOR EXAM: Male, 68 years old. Having heart catheter on . TECHNIQUE: PA and lateral views of the chest. COMPARISON: December 29, 2018. FINDINGS: The lungs are clear and expanded. There is no demonstrated pleural abnormality. Normal size heart. Normal mediastinum and shonda. Normal visualized pulmonary arteries. Normal visualized aortic arch and descending thoracic aorta. Normal visualized thoracic spine. Normal visualized ribs, clavicles, and shoulders. There is no demonstrated abnormality of the visualized soft tissue structures of the upper abdomen. RAD/Chest PA and Lateral IMPRESSION: No acute cardiopulmonary disease. Electronically Signed: Dominik Snyder DO at 23:38 EDT Tel [phone], Service support ,
[2019-07-03 17:09] LABS: Hematocrit 42.7 % (40-54); Hemoglobin 14.1 g/dL (13.0-16.5); Mean Corpuscular Hgb 29.9 pg (27.0-32.0); Mean Corpuscular Volume 90.7 fL (80-94); Mean Platelet Vol. 9.4 fl (6.2-12.0); Platelet Count 268 K/mm3 (150-450); RBC Distribution Width CV 12.6 % (11.6-14.6); RBC Distribution Width SD 41.9 fl (35.1-43.9); Red Blood Count 4.71 M/mm3 (4.6-6.2); White Blood Count 5.8 K/mm3 (4.4-11.0)
[2019-07-03 17:12] LABS: Prothrombin Time (Protime)PT. 13.2 SECONDS (11.7-14.9)
[2019-07-03 17:13] LABS: Partial Thromboplast Time 28.1 Seconds (24.1-36.2)
[2019-07-03 17:51] LABS: Anion Gap 5 (5-15); BUN 23 mg/dL (7-18); BUN/Creat Ratio 22.3 RATIO (10-20); Calcium,Total 8.8 mg/dL (8.5-10.1); Chloride 109 mmol/L (98-107); Creatinine, Serum 1.03 mg/dL (0.70-1.30); EST Glomerular Filtration Rate 77 mL/min (>60); Est Glom Filt Rate - Afr Amer 93 mL/min (>60); Glucose 85 mg/dL (74-106); Potassium 4.1 mmol/L (3.5-5.1); Sodium Level 142 mmol/L (136-145)
[2019-07-05] VITALS (15 sets, daily range): BP systolic 100–133; BP diastolic 48–73; PULSE 55–73; RESP 10–74; TEMP 36.1–36.6; O2SAT 96–100; BMI 26.3; BMI 25.8
[2019-07-05 11:55] LABS: ACT Activated Clotting Time 191 sec (74-137)
--- NOTE | 2019-07-05 12:19 | EKG12_ITS ---
Test Reason : POST PCI Blood Pressure : / mmHG Vent. Rate : 050 BPM Atrial Rate : 050 BPM P-R Int : 180 ms QRS Dur : 100 ms QT Int : 448 ms P-R-T Axes : 063 054 048 degrees QTc Int : 408 ms Sinus bradycardia Otherwise normal ECG When compared with ECG of 21-JAN-2019 05:15, No significant change was found Confirmed by KARINA DIEZ ([id number]), copy editor KARLA ROMERO ([id number]) on 07/17/2019 2:33:53 PM Referred By: Karina Diez Confirmed By:KARINA DIEZ
--- NOTE | 2019-07-05 12:36 | CL.I_ITS ---
Patient Name: ANDREW EDUARDO Study Date: 07/05/2019 Performing: Gael Diez MD Ht: 72 inches 183 cm : 1950 Wt: 194.2 lbs 87.99 kg Age: 68 Gender: male BSA: 2.1 PROCEDURE(S) PERFORMED PK16-XGR/COR/LV [id number], CORONARY OR GRAFT, INITIAL VESSEL [id number]-JWS W OR WO PTCA, SINGLE CORONARY ARTERY [id number], EACH ADD'L CORONARY ART, SAME MAJOR CLINICAL PROFILE AND CO-MORBIDITIES Indications: Stable Known CAD, Frequent PVCs (18% of total 24 hour burden), Cardiac Arrythmia Heart Failure: None Stress/Imaging Date: 06/21/2019 Stress Echocardiogram: Negative Angina Classification Anginal Classification w/in 2 Weeks: No symptoms CAD Presentations: Other: Frequent PVCs. Comorbidities/Risk Factors: Hypertension Dyslipidemia Prior PCI CONCLUSIONS Normal LV size, wall motion,and systolic function Perserved Left Ventricular systolic function with normal EDP Single vessel CAD of the ostial DIAG Non obstructive coronary arteries Possibly signficant distal RCA stenosis. Successful PTCA/DENZEL ostial DIAG with a 2.5 x 12 Promus Synergy, post diated at ostium with a 2.75 x 8 and 3.5 x 8 NC balloon. 3.5 mm balloon only expanded to 3.11 mm at low rebekah. 85%-->0%, no dissectio n. Pt had identical CP symptoms with stent deployment and PVCs almost completely resolved after sten t placement. Successful PCI with PTCA to the LAD stent at DIAG bifurcation with a 3.5 x 8 NC Balloon to ensure rohan t now DIAG stent struts protruded into LAD channel. FFR of distal RCA=0.93, non-significant. RECOMMENDATIONS Staged for FFR Referred for immediate PCI Management as per referring Manufacturing Supervisor Highly recommend quitting all tobacco products Follow up with primary senior foreman Risk factor modification ASA Indefinitley Plavix for at least 12 months Routine post interventional care Refer for Outpatient Cardiac Rehab Manual sheath removal per protocol Follow up with Dr. Diez Successful Mynx Control closure of RFA. DESCRIPTION OF PROCEDURE The patient arrived to the procedure lab. The risks and benefits of the procedure as well as a full d escription of our services here and lack of surgical backup were fully explained to the patient and/o r their significant other prior to the catheterization. The Timeout was completed, verifying the ginny ect patient and procedure. The patient's procedural site was prepped and draped in the usual fashion. Local anesthetic was given subcutaneously to right groin region with Lidocaine 2%. Using a modified Seldinger technique, arterial access was obtained via the right femoral artery, a 4Fr 45cm sheath wa s inserted. Left Coronary Artery selective angiography was performed in multiple views using a 4 Fr. JL5 catheter. Right Coronary Artery selective angiography was then performed in multiple views using a 4 Fr. 3DRC catheter. Left Ventriculography was performed in VERGARA projection using a 4 Fr. Pigtail c atheter. LV to AO pullback pressures were then recordedThe images were reviewed and options discussed. A decision was then made to proceed with an Intervention, IVUS or other adjunct pr ocedure. Arterial sheath was exchanged for a 6 Fr Sheath. EBU 3.5 Guide catheter was inserted and engaged into the LCA. BMW Guide wire was advanced to the LAD. BMW Guide wire was advanced to the 1st Diagonal . Angiogram performed pre balloon dilatation. 2.5x12 Synergy Drug Eluting stent was advanced across t he lesion in the first diagonal, ostial. Drug Eluting stent was removed intact, failed to cross lesio n 2.0x8 Emerge Balloon catheter was advanced across lesion in the first diagonal, ostial. PTCA balloo n inflated at 10 atms for 12 secs. PTCA balloon inflated at 6 atms for 9 secs. PTCA balloon inflated at 8 atms for 9 secs. PTCA balloon inflated at 6 atms for 9 secs. Angiogram performed post balloon di latation. 2.5x12 Synergy Drug Eluting stent was advanced across the lesion in the first diagonal, ost ial. Angiogram performed pre stent deployment. Angiogram performed post stent deployment. 2.75x8 NC E merge Balloon catheter was inserted post stent. Angiogram performed post balloon dilatation. 2.75x8 Emerge Balloon catheter was advanced across lesion in the LAD, proximal. PTCA ball oon inflated at 14 atms for 8 secs. 3.5x8 NC EuphoraBalloon catheter was inserted post stent. PTCA ba lloon inflated at 14 atms for 6 secs. Angiogram performed post balloon dilatation. 3.5x8 NC Euphora B alloon catheter was inserted post stent in the Diag 1. PTCA balloon inflated at 7 atms for 9 secs. PT CA balloon inflated at 7 atms for 10 secs. Angiogram performed post balloon dilatation. HS II Guide c atheter was inserted and engaged into the RCA. The FFR/iFR wire was inserted. Adenosine was then give n per protocol. Pressures and FFR/iFR were then recorded. FFR Ratio Baseline: 1.01 FFR Ratio post Yaritza nosine: .93 Angiogram performed post FFR. Arterial sheath was exchanged for a 6 Fr 11 cmSheath. Contr ast was injected through the sheath and the Right Iliac and Femoral artery were assessed for possible closure device. The arterial sheath was pulled and a Mynx closure device was deployed for hemostasis CORONARY ANGIOGRAPHY DOMINANCE: Right Dominant LEFT HEART ASSESSMENT Left Ventricular Ejection Fraction: by LV Gram 65 % Normal Left Ventricular systolic function Normal LV wall motion LEFT MAIN: Angiographically normal LEFT ANTERIOR DESCENDING ARTERY: PROX LAD: Mild luminal irregularities less than 30% MID LAD: Previously placed stent is patent DIAGONAL 1: Mid - Previously placed stent is patent, Ostial - 85 % Stenosis CIRCUMFLEX ARTERY: Mild luminal irregularities less than 30% RIGHT CORONARY ARTERY: DISTAL RCA: Moderate luminal irregularities up to 50% INTERVENTION INFORMATION LESION SITE: 1st Diagonal (Ostial) Lesion Complexity: High/C, lesion at bifurcation: Yes, thrombus present: No, lesion length: 12 mm, cu lprit lesion: Yes Pre Stenosis: 85 % Pre intervention KATELYN flow: 3 PROCEDURE: Drug Eluting Stent with pre and post dilatation Post Stenosis: 0 % Post intervention KATELYN flow: 3 Lesion Devices: Medtronic 6 Fr EBU3.5 100cm Guide Catheter Bradshaw .014 BMW [place] Straight 190cm Tommy Sci Synergy MR DENZEL 2.50x12 Tommy Sci EMERGE MR 2.00x08 BALLOON Tommy Sci NC EMERGE MR 2.75x08 BALLOON Medtronic NC EUPHORA RX 3.5x08 BALLOON LESION SITE: LAD (Mid) Lesion Complexity: Non-High/Non-C, lesion at bifurcation: Yes, thrombus present: No, lesion length: 8 mm, culprit lesion: No Pre Stenosis: 20 % Pre intervention KATELYN flow: 3 PROCEDURE: Balloon Angioplasty Post Stenosis: 0 % Post intervention KATELYN flow: 3 Lesion Devices: Bradshaw .014 BMW [place] Straight 190cm Tommy Sci NC EMERGE MR 2.75x08 BALLOON Medtronic NC EUPHORA RX 3.5x08 BALLOON LESION SITE: RCA (Distal) Pre Stenosis: 60 % Pre intervention KATELYN flow: 3 PROCEDURE: FFR 60 % Post intervention KATELYN flow: 3 Lesion Devices: Medtronic 6 Fr HSII 100cm Guide Catheter IGT Devices ( Formerly [place]) Coronary FFR Wire COMPLICATIONS No Complications PROCEDURE MEDICATIONS Oxygen: 2 L/min via nasal cannula Adenosine drip for FFR 88 ml IV @ 07/05/2019 11:41:31 Heparin 6000 unit(s) IV 07/05/2019 11:00:35 Nitro 200 mcg IC 07/05/2019 10:52:10 Nitro 200 mcg IC 07/05/2019 10:52:10 Nitro 200 mcg IC 07/05/2019 11:18:05 Nitro 200 mcg IC 07/05/2019 11:27:56 IV Fluids: .9 NaCl increased to open ml/hr 07/05/2019 10:59:47 IV Fluids: .9 NaCl 1000 ml 07/05/2019 11:50:38 SUMMARY OF HEMODYNAMIC DATA Time AIR REST ECG 09:13:05 AO 117/60 (78) SA 10:47:12 LV 118/-15, 6 10:58:06 LV 127/-16, 10 10:58:13 LVp 126/-18, 11 10:58:28 AOp 119/59 (83) 10:58:33 Signed By Gael Diez MD On 08/07/2019 12:10:09 Gael Diez MD
[2019-07-05] MEDS: 0.9% Normal Saline 1,000 ML 150 ML IV (12:39)
--- NOTE | 2019-07-05 14:07 | CRPHASE1 ---
Patient Communication PHII Cardiac Rehab Discussed with Patient:: Yes Guide to Cardiac Rehab Given to Patient:: Yes Cardiac Rehab Facility Choice List Given to Patient:: Yes - PT PREFERS TO ATTEND CR IN [place] TO TALK TO MANUFACTURING PRODUCTION MANAGER FIRST Choice Program [facility] CR PHII:: Communication Given to CR, Refer to [facility] Assembler Clip On Sunglasses:: Gael Diez Phase II Cardiac Rehab:: Yes Sessions:: 36 sessions - 3 days/wk, 12 weeks Risk Factors/Lifestyle Smoking Status: Former smoker Hx Hypertension: No Hx Diabetes Mellitus Type 1: No Hx Dyslipidemia: No Hx Obesity: No Height: 6 ft - BMI 25.8 Stress: Home/Family Risk Factor for Sedentary Lifestyle: Moderate Risk Family History: Family History (Last Reviewed 07/03/19 @ 15:21 by Prema Singh) Father Congestive heart failure (CHF) Mother CAD (coronary artery disease) Brother CAD (coronary artery disease) Family History: Heart Disease Past Cardiac Illness: Previous PCI w/Stent Phase I Education Given On:: Chauncey, Nutrition, Antiplatelet medication Issues Affecting Care:: None Knowledge of Condition:: Yes Learning Preferences: Verbal, Written - AT BEDSIDE Hospital Course Presenting Symptoms:: STEMI Medical/Surgical History VT:: Yes - STEMI CAD:: Yes Cardiomyopathy:: No COPD:: No Diabetes:: No Hypertension:: No Dyslipidemia:: No CABG: No PTCA:: Yes Discharge/Home/Social Eval Discharge Disposition: Home Marital Status: Cardiac Rehabilitation Info Cardiac Rehabilitation Program Information: Cardiac Rehabilitation is important for patients like you who are recovering from a heart problem. Cardiac rehabilitation programs are recognized as integral to the continued care of the patient with coronary heart disease. The cardiac rehabilitation program is designed to optimize a patient's physical, psychological, and social functioning. Health director critical care work in cardiac rehabilitation programs and assist you with getting the treatments you need to get stronger and healthier - like exercise, healthy eating habits, and medications. Cardiac rehabilitation has been show to help people with heart problems live longer and have better life enjoyment than people who do not go to cardiac rehabilitation. Please contact the Cardiac Rehabilitation Program at [facility] at in two weeks if you have not heard from them.
--- NOTE | 2019-07-05 14:11 | CRPH1.INSTRU ---
General Education CAD and cardiac anatomy and function:: Patient communicates acknowledgment, Family communicates acknowledgment Explanation of diagnoses and procedures:: Patient communicates acknowledgment, Family communicates acknowledgment Sign/Symptoms of NE:: Patient communicates acknowledgment, Family communicates acknowledgment Antiplatelet therapy: Patient communicates acknowledgment, Family communicates acknowledgment Proper use of NTG-SL: Not instructed Emergency procedures and activation of EMS: Patient communicates acknowledgment, Family communicates acknowledgment Compliance of all prescribed medications: Patient communicates acknowledgment, Family communicates acknowledgment - AT BEDSIDE Smoking Recommendations Include:: Previous smoker; encourage continued cessation Nicotine/Smoking Response Code:: Patient communicates acknowledgment, Family communicates acknowledgment Dyslipidemia Recommendations Include:: Lipid profile provided, Reviewed NCEP/ATP guidelines, Therapeutic Lifestyle Change dietary guidelines Dyslipidemia Response Code:: Patient communicates acknowledgment, Family communicates acknowledgment Overweight/Obesity Patient Overweight/Obesity Risk Factors Are:: BMI Normal [24-29 & > 65 years old] Recommendations Include:: Exercise 5-7 times/week Overweight/Obesity:: Patient communicates acknowledgment, Family communicates acknowledgment Hypertension Patient Hypertension Risk Factors Are:: No documented hx of HTN Recommendations Include:: Maintain BP <130/85, DASH dietary guidelines Hypertension:: Patient communicates acknowledgment, Family communicates acknowledgment Heart Disease Patient Heart Disease Risk Factors Are:: Previous cardiac event Recommendations Include:: Educated family members of their risk Heart Disease Response Code:: Patient communicates acknowledgment, Family communicates acknowledgment Diabetes Patient Diabetes Risk Factors Are:: No documented hx of diabetes Metabolic Syndrome Recommendations Include:: Does not meet criteria Sedentary Patient Sedentary Risk Factors Are:: Lack of regular exercise Recommendations Include:: Aerobic exercise 5-7 times/week for 20-30 minutes continuously, Benefits of regular exercise, Discussed home walking program, Monitored Outpatient Cardiac Rehab Sedentary Response Code:: Patient communicates acknowledgment, Family communicates acknowledgment Stress Recommendations Include:: Identification of stressors, and assessment of coping skills, Stress management techniques Stress Response Code:: Patient communicates acknowledgment, Family communicates acknowledgment
[2019-07-05] MEDS: Acetaminophen 325 MG Tablet 650 MG PO (15:09)
[2019-07-06] VITALS (7 sets, daily range): BP systolic 97–132; BP diastolic 40–60; PULSE 56–77; RESP 13–20; TEMP 36.4–36.7; O2SAT 97–100
[2019-07-06 06:04] LABS: Absolute Lymphocyte Count 0.97 X10^3/uL (0.83-4.51); Absolute Neutrophil Count 4.2 X10^3/uL (2.0-7.7); Basophil# 0.03 X10^3/uL; Basophil% 0.5 % (0-1); Eosinophil# 0.18 X10^3/uL; Hematocrit 40.5 % (40-54); Hemoglobin 13.7 g/dL (13.0-16.5); Lymphocyte # 0.97 X10^3/ul (4.0); Lymphocyte % 16.2 % (19-41); Mean Corp Hgb Conc 33.8 g/dL (32-36); Mean Corpuscular Hgb 30.2 pg (27.0-32.0); Mean Corpuscular Volume 89.2 fL (80-94); Mean Platelet Vol. 9.4 fl (6.2-12.0); Monocyte# 0.55 X10^3/uL; Monocyte% 9.2 % (0-10); NRBC Flagged by Analyzer 0 % (0-5); Neutrophil # 4.22 X10^3/uL (2.7-7.7); Neutrophil % 70.8 % (47-70); Platelet Count 234 K/mm3 (150-450); RBC Distribution Width CV 12.7 % (11.6-14.6); RBC Distribution Width SD 41.3 fl (35.1-43.9); Red Blood Count 4.54 M/mm3 (4.6-6.2)
[2019-07-06 06:14] LABS: Anion Gap 6 (5-15); BUN 16 mg/dL (7-18); BUN/Creat Ratio 17.8 RATIO (10-20); Calcium,Total 8.6 mg/dL (8.5-10.1); Chloride 112 mmol/L (98-107); EST Glomerular Filtration Rate 89 mL/min (>60); Est Glom Filt Rate - Afr Amer 108 mL/min (>60); Estimated Creatinine Clearance 88.62 ml/min; Glucose 98 mg/dL (74-106); Potassium 4.2 mmol/L (3.5-5.1); Sodium Level 144 mmol/L (136-145)
--- NOTE | 2019-07-06 06:57 | PCM.DC.CCA ---
Discharge Diet: Low fat/ Low Cholesterol Discharge Activity: Return to Normal Activity May shower in (days): 1 - no tub baths for 5 days May resume sexual activity in: 1-2 weeks Lifting Restrictions: Do not lift anything greater than 10 pounds for 3 days Call your doctor if your incision/area has: Continuous Slow Oozing, Sudden Increased Bleeding, Increased Pain/ Swelling, Increased Redness, Foul Smelling Discharge, Swelling at the incision site Call your doctor if you observe: Fever of 101 or Higher, Shortness of breath, Chest pain Remove Dressing in (days):: 1 Cleanse incision/area with: Soap & Water Additional Instructions: You will continue with Aspirin and Plavix therapy. You will remain on Plavix for at least one year. If anyone asks you to stop this medication, please call the [facility] Office at [phone]. You are scheduled for a post hospital follow-up on 07/27/[address] Diez at 11:30. If you have any questions or concerns please call the [facility] Office at [phone]. Allergies/Adverse Reactions: Allergies ondansetron [From Zofran (as hydrochloride)] Adverse Reaction (Verified 05/11/19 14:33) HALLUCINATIONS Medications to take at Discharge aspirin 81 mg tablet,delayed release 81 mg PO DAILY@0800 #90 tab 02/01/19 clopidogrel 75 mg tablet 75 mg PO DAILY #90 tab 04/21/19 Gemfibrozil [Lopid] 600 mg PO BIDAC tablet 07/06/19 Orders to be completed after discharge: Phase II, Outpatient Cardiac Rehab Location: None Selected Primary Care Physician: Kris Bgeum MD [Primary Care Provider] - Test Results: Test results from this visit will be discussed in further detail at your follow-up appointment, if applicable. Please Follow Up With: Dr. Diez When: 07/27/2019 at 11:30 AM Proposed Discharge Date: 07/06/19 Cardiac Rehabilitation Info Cardiac Rehabilitation Program Information: Cardiac Rehabilitation is important for patients like you who are recovering from a heart problem. Cardiac rehabilitation programs are recognized as integral to the continued care of the patient with coronary heart disease. The cardiac rehabilitation program is designed to optimize a patient's physical, psychological, and social functioning. Health senior care specialist work in cardiac rehabilitation programs and assist you with getting the treatments you need to get stronger and healthier - like exercise, healthy eating habits, and medications. Cardiac rehabilitation has been show to help people with heart problems live longer and have better life enjoyment than people who do not go to cardiac rehabilitation. Please contact the Cardiac Rehabilitation Program at [facility] at in two weeks if you have not heard from them.
[2019-07-06] MEDS: Gemfibrozil 600 MG Tablet PO (08:09)
[2019-07-06] MEDS: Clopidogrel Bisulfate 75 MG Tablet PO (08:09)
[2019-07-06] MEDS: Aspirin E.C. 81 MG Tablet PO (08:09)
--- NOTE | 2019-07-06 08:16 | PN.CARD_ITS ---
Subjectve: Patient doing very well this morning. No chest pain noted. Patient still has PVCs on his telemetry as well as his EKG. EKG showed normal sinus rhythm, PVCs, ventricular bigeminy, no acute changes. Patient's PVCs disappear when he ambulates and walks around the floor. His right groin is clean/dry/intact without evidence of thrills, bruits or hematoma. Hemoglobin and creatinine are within nominal limits. Objective: Vital Signs Temp Pulse Resp BP Pulse Ox 97.5 F L 61 17 121/40 H 100 07/06/19 08:00 07/06/19 08:00 07/06/19 08:00 07/06/19 08:00 07/06/19 08:00 Oxygen Delivery Method Room Air Weight: 190 lb 12.581 oz Body Mass Index (BMI) 25.8 Intake and Output for Last 24 Hours 07/04/19 07/05/19 07/06/19 23:59 23:59 23:59 Intake Total 1650 / 1650 Output Total 575 / 575 Balance -575 / 825 1650 / 1650 General: Awake, Alert, Oriented x 3 HEENT: PERRL, EOMI, Sclera Non Icteric Neck: Supple, Good ROM, No Lymph Node Enlargement Lungs: Clear to auscultation Cardiovascular: Regular Rhythm, Normal S1, Normal S2, No Murmurs, No Rubs, No Gallops Vascular: No Carotid Bruits, Normal Femoral Pulses, Normal Radial Pulses, Normal Dorsalis Pedal Pulse, Normal Posterior Tibial Pulses Abdomen: Bowel Sounds Present, Soft, Non Tender, No HSM, No Organomegaly Extremities: No Cyanosis, No Clubbing, No edema Neurological: No Focal Motor or Sensory Deficit 07/06/19 05:55: WBC 6.0, RBC 4.54 L, Hgb 13.7, Hct 40.5, MCV 89.2, MCH 30.2, MCHC 33.8, Plt Count 234, MPV 9.4, Immature Gran % (Auto) 0.300, Neut % (Auto) 70.8 H, Lymph % (Auto) 16.2 L, [place] % (Auto) 9.2, Eos % (Auto) 3.0, Baso % (Auto) 0.5, Absolute Neuts (auto) 4.2, Nucleated RBC % 0 07/06/19 05:55: Sodium 144, Potassium 4.2, Chloride 112 H, Carbon Dioxide 26.0, Anion Gap 6, BUN 16, Creatinine 0.90, Est GFR (MDRD) Af Amer 108, Est GFR (MDRD) Non-Af 89, BUN/Creatinine Ratio 17.8, Glucose 98, Calcium 8.6 Rhythm: EKG: ECHO: Stress Test: Cardiac Cath: PCI: CT Surgery: Holter monitor: EPS: PPM: CXR: Chest CT Scan: Medical Necessity - Tobacco Use Smoking Status: Former smoker Assessment/Plan 1. Coronary artery disease: Repeat catheterization demonstrated widely patent LAD stent, widely patent diagonal stent, with significant recurrent coronary disease at the bifurcation of the LAD and diagonal. The patient was treated at the bifurcation of his diagonal with a 2.5X 12 Promus Synergy stent, postdilated to 3.11 mm. At first his PVCs completely disappeared, but they have returned. Patient will continue baby aspirin, Plavix, we will hold on CELSO inhibitor and beta-blockers at this time in order to avoid worsening his PVCs. It appears he has phase for conduction with bradycardia causing his extra PVCs. When the patient ambulates and his heart rate speeds up his PVCs completely disappear. He has had no runs of ventricular tachycardia, and is asymptomatic completely from his PVCs. My suspicion is is that his PVCs will be present as long as he continues to exercise, and when his heart rate is less than 50 bpm. 2. Hyperlipidemia: The patient did not tolerate statin based medications and I recommended switching him to gemfibrozil 600 mg p.o. twice daily. We will repeat lipid profile in 6 weeks time. 3. Patient just completed cardiac rehab and is very active with rowing machine and exercising with his . I do not believe he requires repeat cardiac rehab at this time. 4. Patient will be discharged home and follow-up with Dr. Diez going forward. Code Visit Inpatient E&M: 24767 Subs Hosp L2
--- NOTE | 2019-07-06 12:19 | EKG12_ITS ---
Test Reason : AM EKG Blood Pressure : / mmHG Vent. Rate : 055 BPM Atrial Rate : 055 BPM P-R Int : 166 ms QRS Dur : 094 ms QT Int : 412 ms P-R-T Axes : 067 061 054 degrees QTc Int : 394 ms Sinus bradycardia with frequent Premature ventricular complexes Otherwise normal ECG When compared with ECG of 05-JUL-2019 12:30, MANUAL COMPARISON REQUIRED, DATA IS UNCONFIRMED Confirmed by KEYONA HARDIN, TOMAS ([id number]), order editor MEME AGARWAL ([id number]) on 07/11/2019 1:58:07 PM Referred By: Gael Diez Confirmed By:JAVY RAND MD
--- NOTE | 2019-07-21 17:12 | CL.D_ITS ---
Patient Name: ANDREW EDUARDO Study Date: 07/05/2019 Performing: Gael Diez MD Ht: 72 inches 183 cm : 1950 Wt: 194.2 lbs 87.99 kg Age: 68 Gender: male BSA: 2.1 PROCEDURE(S) PERFORMED WL19-IMK/COR/LV [id number], CORONARY OR GRAFT, INITIAL VESSEL [id number] W OR WO PTCA, SINGLE CORONARY ARTERY [id number], EACH ADD'L CORONARY ART, SAME MAJOR CLINICAL PROFILE AND INDICATIONS Indications: New Onset Angina <= 2 months, Stable Known CAD, Frequent PVCs (18% of total 24 hour burden), Cardiac Arrythmia Heart Failure: None Stress/Imaging Date: 06/21/2019Stress Echocardiogram: Negative Angina Classification Anginal Classification w/in 2 Weeks: No symptoms CAD Presentations: Other: Frequent PVCs. Comorbidities/Risk Factors: Hypertension Dyslipidemia Prior PCI CONCLUSIONS Normal LV size, wall motion,and systolic function Perserved Left Ventricular systolic function with normal EDP Single vessel CAD of the ostial DIAG Non obstructive coronary arteries Possibly signficant distal RCA stenosis. RECOMMENDATIONS Staged for FFR Referred for immediate PCI Management as per referring Hospice Chaplain DESCRIPTION OF PROCEDURE The patient arrived to the procedure lab. The risks and benefits of the procedure as well as a full d escription of our services here and current unavailability of surgical backup were fully explained to the patient and/or their significant other prior to the catheterization. The Timeout was completed, verifying the correct patient and procedure. The patient's procedural site was prepped and draped in the usual fashion. Local anesthetic was given subcutaneously to right groin region with Lidocaine 2%. Using a modified Seldinger technique, arterial access was obtained via the right femoral artery, a 4 Fr 45cm sheath was inserted Left Coronary Artery selective angiography was performed in multiple vi ews using a 4 Fr. JL5 catheter. Right Coronary Artery selective angiography was then performed in mul tiple views using a 4 Fr. 3DRC catheter. Left Ventriculography was performed in VERGARA projection using a 4 Fr. Pigtail catheter. LV to AO pullback pressures were then recorded.Contrast was injected through the sheath and the Right Iliac and Femoral artery were assessed for possible closure device.The arterial sheath was pulled and a Mynx closure device was deployed for hemostasis CORONARY ANGIOGRAPHY DOMINANCE: Right Dominant LEFT HEART ASSESSMENT Left Ventricular Ejection Fraction: by LV Gram 65 % Normal LV wall motion Normal Left Ventricular systolic function LEFT MAIN: Angiographically normal LEFT ANTERIOR DESCENDING ARTERY: PROX LAD: Mild luminal irregularities less than 30% MID LAD: Previously placed stent is patent DIAGONAL 1: Mid - Previously placed stent is patent, Ostial - 85 % Stenosis CIRCUMFLEX ARTERY: Mild luminal irregularities less than 30% RIGHT CORONARY ARTERY: DISTAL RCA: Moderate luminal irregularities up to 50% COMPLICATIONS No Complications PROCEDURE MEDICATIONS Oxygen: 2 L/min via nasal cannula Adenosine drip for FFR 88 ml IV @ 07/05/2019 11:41:31 Heparin 6000 unit(s) IV 07/05/2019 11:00:35 Nitro 200 mcg IC 07/05/2019 10:52:10 Nitro 200 mcg IC 07/05/2019 10:52:10 Nitro 200 mcg IC 07/05/2019 11:18:05 Nitro 200 mcg IC 07/05/2019 11:27:56 IV Fluids: .9 NaCl increased to open ml/hr 07/05/2019 10:59:47 IV Fluids: .9 NaCl 1000 ml 07/05/2019 11:50:38 SUMMARY OF HEMODYNAMIC DATA Time AIR REST ECG 09:13:05 AO 117/60 (78) SA 10:47:12 LV 118/-15, 6 10:58:06 LV 127/-16, 10 10:58:13 LVp 126/-18, 11 10:58:28 AOp 119/59 (83) 10:58:33 Signed By Gael Diez MD On 07/21/2019 17:11:23 Gael Diez MD
--- NOTE | 2019-07-24 10:31 | HP.PCM_ITS ---
Problem List (1) Frequent PVCs Status: Acute (2) Arteriosclerosis of coronary artery in patient with history of myocardial infarction Status: Chronic Comment: PCI-DENZEL-Mid D1 w/ 2.5 x 12 Promus Synergy and POBA- Ostium D1, DENZEL-Mid LAD w/ 2.5 x 28 mm and 2.25 x 20 mm Promus Synergy Stent 01/18/19 (3) History of ST elevation myocardial infarction (STEMI) Status: Chronic History and Physical Date of Admission: 07/05/19 [facility] [address] [place] [address] OFFICE VISIT Date of Service: 07/03/19 MR#:[id number] Name: ANDREW EDUARDO #:[id number] : 1950 Provider:Gael Diez MD Age/Sex: 68/M Location:[facility] Status:Signed HPI HPI History of Present Illness Details: History of Present Illness Details: ANDREW EDUARDO, is a 68 M who presents to the office today for a cardiovascular outpatient follow-up. He has a history of ST elevated myocardial infarction in December 2018 status post stenting to LAD and Diagonal. At that time he presented with chest pain. He also has a history of diverticulosis and prostate cancer with radiation therapy. Patient has been struggling as of late, mostly with bradycardia, frequent PVCs, decreased memory. We have been reducing his atorvastatin and metoprolol down, which have had some improvement of his memory, but not completely back to normal. A 24-hour Holter monitor was performed which demonstrated significant PVCs in the range of around 18%. Interestingly, when he is a cardiac rehab his PVCs less than and normalize out. He underwent a stress echocardiogram on 06/21/2019. It was negative for inducible ischemia. His LVEF was normal at that time. Patient underwent echocardiogram on 05/03/2019 which showed normal LVEF, unable to quantitate RVSP. Patient is exercising by using a rowing machine without any difficulty. He denies any presyncope, syncope, or palpitations. He is here to be evaluated for possible repeat catheterization given his frequent PVCs. In our office today blood pressure is 104/60, and pulse is 52 and regular. His physical exam is as below. His lipids as of 05/11/2019 show an LDL of 68 and HDL of 33. ekg is pending. Intake Vital Signs 07/03/19 Height 6 ft 07/03/19 Weight: 197 lb 07/03/19 Body Mass Index (BMI) 26.7 07/03/19 Blood Pressure 104/60 07/03/19 Blood Pressure Location Lt brachial 07/03/19 Blood Pressure Position Sitting 07/03/19 Respiratory Rate 20 H 07/03/19 Pulse Rate 52 L 07/03/19 Pulse Source Auscultation Intake Visit Reasons: to discuss holter & cath General Superintendent Required: No Accompanied by: Is patient in pain?: No Allergies ondansetron [From Zofran (as hydrochloride)] Adverse Reaction (Verified 05/11/19 14:33) HALLUCINATIONS Medications aspirin 81 mg tablet,delayed release 81 mg PO DAILY@0800 #90 tab 02/01/19 [Rx Confirmed 07/03/19] clopidogrel 75 mg tablet 75 mg PO DAILY #90 tab 04/21/19 [Rx Confirmed 07/03/19] atorvastatin 80 mg tablet 40 mg PO QHS #90 tab 05/11/19 [Rx Confirmed 07/03/19] metoprolol tartrate 25 mg tablet 12.5 mg PO DAILY tab 07/03/19 [History] PFS Medical History History of ST elevation myocardial infarction (STEMI) (Chronic 01/18/19) Frequent PVCs (Acute) Arteriosclerosis of coronary artery in patient with history of myocardial infarction (Chronic) Surgical History Stented coronary artery (Chronic 01/18/19) Family History Father Congestive heart failure (CHF) Mother CAD (coronary artery disease) Brother CAD (coronary artery disease) Social History (Updated 07/03/19 @ 16:05 by Gael Diez MD) Smoking Status: Former smoker ROS Const Const: Positive for other (Here to discuss cath, holter, and also memory issues.); negative for fatigue, weakness, body ache, fever(s), headache(s), chills, frequent falls, night sweats, daytime sleepiness, difficulty sleeping, excessive sweating, weight gain, weight loss, increased appetite, poor appetite or anorexia Eyes Eyes: Negative for blind spots, loss of peripheral vision, transient loss of vision, blurry vision, change in vision, double vision, floaters, tunnel vision or other ENT ENT: Negative for headache(s), dizziness, hearing loss, tinnitus, Nosebleed/epistaxis, balance problems, post nasal drip, lip swelling, tongue swelling, bleeding gums, hoarseness, neck pain, dry mouth or other Cardio Chest Pain: No Palpitations: No Edema: None Muscle aches with walking: None Resp Respiratory: Negative for SOB with activity, SOB at rest, SOB orthopnea\SOB lying down, Cough, Coughing up blood/hemoptysis, chest congestion, pain on inspiration, snoring, stridor, wheezing, crackles, paroxysmal nocturnal dyspnea or other GI GI: Negative nausea, vomiting, heartburn, constipation, belching, bloating, cramping, vomiting blood/hematemesis, bright, red blood in stools, black,tarry stools, loose stools, Difficulty Swallowing or other : Negative for hematuria, frequent nighttime urination/ nocturia, erectile dysfunction or abnormal vaginal bleeding Musc Musc: Negative for muscle aches/ myalgia, muscle weakness, joint pain or balance problems Skin Skin: Negative redness, non-healing lesions, rash, unusual bruising, skin ulcer, wounds, jaundice or other Neuro Neuro: Negative for dizziness, lightheadedness, near syncope, syncope, orthostatic symptoms, frequent falls, headache(s), weakness, confusion, memory loss, restless legs, blurry vision, double vision, vertigo, seizures, lack of coordination or other Juan J Hematologic/Lymphatic: Negative for easy bleeding, easy bruising, enlarged lymph nodes or other Endo Endo: Negative for fatigue, cold intolerance, heat intolerance, excessive sweating, flushing, increased thirst/drinking, increased hunger, hair loss, hair growth or other Psych Psych: Negative for anxiety, depression, thoughts of harming anyone, thoughts of harming yourself, visual hallucinations, panic attacks or audible hallucinations Allergy Allergy/Immunology: Negative for throat swelling, Negative for tongue swelling, Negative for hives, Negative for rash, Negative for lip swelling Cardiology Exam Const Appearance: cooperative, healthy appearing and no acute distress Nutritional Appearance: well nourished Orientation: alert, oriented x3 and oriented to person Head Head: normal to inspection, normocephalic and atraumatic Nose: external nose normal Face and Sinus: face symmetric Mouth: oral mucosae normal Eyes General: appearance normal, both eyes and all related structures Eyelids: eyelids normal Conjunctivae: conjunctivae normal Pupils: PERRL and normal by confrontation EOM: EOM intact bilaterally Neck Neck: normal visual inspection and full ROM Carotids: normal carotid upstroke Chest Chest inspection: normal inspection of the chest Auscultation: Bilateral: Clear to Auscultation Cardio Palpation: normal PMI Rate: regular rate Rhythm: regular rhythm Heart sounds: S1 normal and S2 normal GI GI: normal to inspection, no hepatosplenomegaly and bowel sounds present Neuro General: alert, awake, oriented x3, CN's II-XI intact bilaterally and moves all extremities Skin Skin: no rashes or lesions noted Extremities Pulses: Normal: Right Femoral Pulse, Left Femoral Pulse, Right Dorsalis Pedis Pulse, Left Dorsalis Pedis Pulse, Right Posterior Tibial Pulse, Left Posterior Tibial Pulse, Right Radial Pulse, Left Radial Pulse Lower Extremity Edema: None: Bilateral Psych Psychological: normal affect Assessment & Plan 1. Arteriosclerosis of coronary artery in patient with history of myocardial infarction I25.10; I25.2 PCI-DENZEL-Mid D1 w/ 2.5 x 12 Promus Synergy and POBA-Ostium D1, DENZEL-Mid LAD w/ 2.5 x 28 mm and 2.25 x 20 mm Promus Synergy Stent 01/18/19 Plan 1. Coronary artery disease: No exertional anginal symptoms at this time however the patient has a significant and copious amount of PVCs as identified by a Holter monitor. In addition he complains of memory issues, which have occurred after application of statins and metoprolol. We have titrated down both his statin and metoprolol and has had some significant improvement of his memory but not completely back to normal. Patient has no focal deficits so I doubt the patient had a CVA ulices-procedurally. Given the patient's copious amount of PVCs, and previous angioplasty and stenting, I recommended that he undergo a repeat catheterization to ensure that his drug-eluting stent to the mid LAD is still open. The risks/benefits of the procedure were thoroughly explained the patient and his , with specific attention to lack of on-site surgical back-up, and informed consent was obtained. 2. Frequent PVCs I49.3 Plan 2. Frequent PVCs: I believe the patient's PVCs are result of his bradycardia and phase 4 conduction. Recommend discontinuation of metoprolol to determine if his PVCs improved. In addition as stated above we will undergo a repeat left her catheterization to ensure stent patency. Patient may not require beta- blockers given his baseline bradycardia 3. Hyperlipidemia E78.5 Plan . 3. Hyperlipidemia: We will hold his Lipitor at this time to determine if it is affecting his memory as defined in some of the literature. Should his memory improved, I would switch him to gemfibrozil. 4. Return office in 6-months. This note was generated using a voice recognition system and there may be incorrect words, spelling or punctuation that were not noted when reviewing the office note prior to saving. Plan Detail Follow Up +6M (Rg) Coding Level of Care Code Off vis,est,level 3 Diagnoses Arteriosclerosis of coronary artery in patient with history of myocardial infarction I25.10; I25.2 Frequent PVCs I49.3 Hyperlipidemia E78.5 Coding Level of Care Code Off vis,est,level 3 Diagnoses Arteriosclerosis of coronary artery in patient with history of myocardial infarction I25.10; I25.2 Frequent PVCs I49.3 Hyperlipidemia E78.5 Supplemental Info Supplemental Information Labs LDL Cholesterol 68 mg/dL (0-130) 05/11/19 HDL Cholesterol 33 mg/dL (40-) L 05/11/19 Triglycerides 108 mg/dL (-199) 05/11/19 VLDL Cholesterol 22 mg/dL (5-40) 05/11/19 Diagnostics Electrocardiogram 01/21/19 Echocardiogram 05/03/19 Stress Echocardiogram 06/21/19 Chest X-Ray 01/18/19 07/03/19 [id number]<Electronically signed by Gael Diez MD> Date [facility] Signature:Date (if applicable) CC: Fabian Begum MD ~ Addendum: Patient seen and examined on the date of the procedure 07/05/2019, and no additional changes noted. Agree with above, and will proceed with left heart catheterization for frequent PVCs out of proportion to coronary presentation..
== END 2019-07-06 08:45 | disposition home or self-care (01) ==
LOC: CLSP 08:51 → ICU 11:07
PROVIDERS: Family Provider Family Medicine; PCP Family Medicine; Referring Provider Internal Medicine Cardiovascular Disease; Visit Provider Internal Medicine Cardiovascular Disease
DX: I25.110 Atherosclerotic heart disease of native coronary artery with unstable angina pectoris (principal); I49.3 Ventricular premature depolarization; E78.5 Hyperlipidemia, unspecified; I10 Essential (primary) hypertension; I25.2 Old myocardial infarction; Z87.891 Personal history of nicotine dependence; Z79.02 Long term (current) use of antithrombotics/antiplatelets; Z95.5 Presence of coronary angioplasty implant and graft; Z79.82 Long term (current) use of aspirin; Z85.46 Personal history of malignant neoplasm of prostate; Z88.8 Allergy status to other drugs, medicaments and biological substances
CPT/HCPCS: 36415; 71046; 80048; 85025; 85027; 85347; 85610; 85730; 92921; 92928; 93005; 93458; 93571; C1760; J0153; J7030; J7040; Q9967; C1725; C1769; C1887; C1894; C9600

== ENCOUNTER → 2019-10-10 09:32 | Outpatient (CLI) | payer OTHER, SELFPAY ==
[2019-01-19 08:30] VITALS: BMI 31.8
[2019-10-10 09:32] VITALS: BMI 25.8
[2019-10-10 12:49] LABS: PSA,Total - Annual Screen 0.41 ng/mL (0.00-4.00)
== END ==
PROVIDERS: Family Provider Family Medicine; PCP Family Medicine; Referring Provider Family Medicine; Visit Provider Family Medicine
DX: Z12.5 Encounter for screening for malignant neoplasm of prostate (principal)
CPT/HCPCS: 36415; 84153; G0103

== ENCOUNTER → 2019-11-30 11:24 | Outpatient (CLI) | payer OTHER, SELFPAY ==
[2019-01-19 08:30] VITALS: BMI 31.8
[2019-10-10 09:32] VITALS: BMI 25.8
[2019-11-30 14:14] LABS: Absolute Lymphocyte Count 1.11 X10^3/uL (0.83-4.51); Absolute Neutrophil Count 2.3 X10^3/uL (2.0-7.7); Basophil# 0.04 X10^3/uL; Eosinophil# 0.15 X10^3/uL; Eosinophils% 3.7 % (0-5); Hematocrit 44.6 % (40-54); Hemoglobin 14.6 g/dL (13.0-16.5); Lymphocyte # 1.11 X10^3/ul (4.0); Lymphocyte % 27.5 % (19-41); Mean Corp Hgb Conc 32.7 g/dL (32-36); Mean Corpuscular Hgb 30.2 pg (27.0-32.0); Mean Corpuscular Volume 92.1 fL (80-94); Mean Platelet Vol. 10.1 fl (6.2-12.0); Monocyte# 0.45 X10^3/uL; Monocyte% 11.2 % (0-10); NRBC Flagged by Analyzer 0 % (0-5); Neutrophil # 2.26 X10^3/uL (2.7-7.7); Neutrophil % 56.1 % (47-70); Platelet Count 307 K/mm3 (150-450); RBC Distribution Width CV 12.4 % (11.6-14.6); RBC Distribution Width SD 41.5 fl (35.1-43.9); Red Blood Count 4.84 M/mm3 (4.6-6.2)
[2019-11-30 14:33] LABS: ALB/GLOB Ratio 0.9 RATIO (0.9-2.4); AST(SGOT) 24 U/L (15-37); Alanine Aminotransfer ALT/SGPT 36 U/L (16-61); Albumin, Serum 4.2 g/dL (3.2-5.0); Alkaline Phosphatase 68 U/L (45-117); Anion Gap 5 (5-15); BUN 23 mg/dL (7-18); BUN/Creat Ratio 18.7 RATIO (10-20); Calcium,Total 10.1 mg/dL (8.5-10.1); Chloride 106 mmol/L (98-107); Cholesterol 220 mg/dL (200); Creatinine, Serum 1.23 mg/dL (0.70-1.30); EST Glomerular Filtration Rate 62 mL/min (>60); Est Glom Filt Rate - Afr Amer 75 mL/min (>60); Globulin 4.5 g/dL (2.2-4.2); Glucose 98 mg/dL (74-106); High Density Lipoprotein 49 mg/dL; Protein, Total 8.7 g/dL (6.4-8.2); Sodium Level 140 mmol/L (136-145); Thyroid Stim Hormone (TSH) 4.07 uIU/mL (0.358-3.74); Triglycerides 67 mg/dL; Very Low Density Lipoprotein 13 mg/dL (5-40); Vitamin B12 983 pg/mL (211-911); Vitamin D,25 Hydroxy 31.2 ng/mL (29.95-100.01)
[2019-12-01 13:00] LABS: T4 Free Direct 0.89 ng/dL (0.76-1.46)
[2019-12-02 15:32] LABS: EBV Acute VCA IgM < 36.0 U/mL (0.0-35.9); EBV Early Antigen IgG <9.0 U/mL (0.0-8.9)
== END ==
PROVIDERS: Family Provider Family Medicine; PCP Family Medicine; Referring Provider Family Medicine; Visit Provider Family Medicine
DX: I21.3 ST elevation (STEMI) myocardial infarction of unspecified site (principal); R53.83 Other fatigue
CPT/HCPCS: 36415; 80053; 80061; 82306; 82607; 84439; 84443; 85025; 86663; 86664; 86665

== ENCOUNTER → 2020-01-24 08:38 | Outpatient (CLI) | payer OTHER, SELFPAY ==
[2019-01-19 08:30] VITALS: BMI 31.8
[2019-10-10 09:32] VITALS: BMI 25.8
[2020-01-24 10:41] LABS: Cholesterol 222 mg/dL (200); High Density Lipoprotein 50 mg/dL; T4 Free Direct 0.78 ng/dL (0.76-1.46); Thyroid Stim Hormone (TSH) 7.07 uIU/mL (0.358-3.74); Triglycerides 114 mg/dL; Very Low Density Lipoprotein 23 mg/dL (5-40)
== END ==
PROVIDERS: PCP Family Medicine; Referring Provider Family Medicine; Visit Provider Family Medicine
DX: E03.9 Hypothyroidism, unspecified (principal); I25.2 Old myocardial infarction
CPT/HCPCS: 36415; 80061; 84439; 84443

== ENCOUNTER → 2020-08-14 10:14 | Outpatient (CLI) | payer OTHER, SELFPAY ==
[2019-01-19 08:30] VITALS: BMI 31.8
[2019-10-10 09:32] VITALS: BMI 25.8
[2020-08-14 13:10] LABS: ALB/GLOB Ratio 0.8 RATIO (0.9-2.4); AST(SGOT) 19 U/L (15-37); Alanine Aminotransfer ALT/SGPT 35 U/L (16-61); Albumin, Serum 3.4 g/dL (3.2-5.0); Alkaline Phosphatase 59 U/L (45-117); Anion Gap 2 (5-15); BUN 19 mg/dL (7-18); BUN/Creat Ratio 18.4 RATIO (10-20); Calcium,Total 9.3 mg/dL (8.5-10.1); Chloride 108 mmol/L (98-107); Cholesterol 175 mg/dL (200); Creatinine, Serum 1.03 mg/dL (0.70-1.30); EST Glomerular Filtration Rate 76 mL/min (>60); Est Glom Filt Rate - Afr Amer 92 mL/min (>60); Globulin 4.5 g/dL (2.2-4.2); Glucose 96 mg/dL (74-106); High Density Lipoprotein 36 mg/dL; Potassium 4.1 mmol/L (3.5-5.1); Protein, Total 7.9 g/dL (6.4-8.2); Sodium Level 140 mmol/L (136-145); Triglycerides 109 mg/dL; Very Low Density Lipoprotein 22 mg/dL (5-40)
== END ==
PROVIDERS: PCP Family Medicine; Referring Provider Family Medicine; Visit Provider Family Medicine
DX: E78.00 Pure hypercholesterolemia, unspecified (principal)
CPT/HCPCS: 80053; 80061

== ENCOUNTER → 2021-03-14 14:32 | Outpatient (CLI) | payer OTHER, SELFPAY ==
[2019-01-19 08:30] VITALS: BMI 31.8
[2019-10-10 09:32] VITALS: BMI 25.8
--- NOTE | 2021-03-14 14:38 | RAD_ITS ---
STUDY: X-RAY - RIGHT ANKLE REASON FOR EXAM: Male, 70 years old. Pain TECHNIQUE: 3 view(s) of the ankle. COMPARISON: None. FINDINGS: Normal visualized distal tibia and fibula. Normal medial and lateral malleoli. Normal tibiotalar articulation and ankle mortise. Normal visualized talus and calcaneus. The visualized subtalar, talonavicular, calcaneocuboid and tarsal articulations are normal. The soft tissue structures are unremarkable. RAD/Ankle min 3 Views IMPRESSION: Normal x-ray examination of the ankle. Electronically Signed: Tong Tavares MD at 6:29 EDT Tel , Service support ,
== END ==
PROVIDERS: PCP Family Medicine; Referring Provider Family Medicine; Visit Provider Family Medicine
DX: M25.571 Pain in right ankle and joints of right foot (principal)
CPT/HCPCS: 73610

== ENCOUNTER 2021-05-23 16:40 | Emergency (ER) | payer OTHER, SELFPAY ==
[2019-01-19 08:30] VITALS: BMI 31.8
[2019-10-10 09:32] VITALS: BMI 25.8
[2021-05-23 16:41] VITALS: BP 106/62; PULSE 66; RESP 18; TEMP 35.8; O2SAT 94; BMI 28.3
--- NOTE | 2021-05-23 17:41 | CT_ITS ---
STUDY: CT BRAIN WITHOUT CONTRAST REASON FOR EXAM: Male, 70 years old. Fell 6'' onto ladder. Patient on anticoagulants. No loss of consciousness. History of prostate cancer. RADIATION DOSAGE (If Supplied By Facility): CTDIvol = ( 44.99 ) mGy, DLP = ( 829.85 ) mGycm TECHNIQUE: Transaxial CT imaging of the brain was performed without administration of intravenous contrast material. Individualized dose optimization techniques were used for this CT. COMPARISON: No relevant priors. FINDINGS: Normal soft tissue structures. Normal calvarium. Normal size ventricles and extra-axial spaces for the patient''s age. Normal white matter tracts of the cerebral hemispheres. Normal basal ganglia and thalami. Normal brainstem. Normal cerebellum. There is no intracranial hemorrhage. There are no findings of an acute ischemic infarction. Normal visualized paranasal sinuses. CT/Brain/Head without Contrast IMPRESSION: No acute intracranial or calvarial abnormality Electronically Signed: Dominik Snyder DO at 18:47 EDT Tel [phone], Service support ,
--- NOTE | 2021-05-23 17:41 | CT_ITS ---
STUDY: CT CERVICAL SPINE WITHOUT CONTRAST REASON FOR EXAM: Male, 70 years old. Trauma. Fell 6'' from ladder. Patient on anticoagulants. History of prostate cancer. RADIATION DOSAGE (If Supplied By Facility): CTDIvol = ( 23.59 ) mGy, DLP = ( 492.52 ) mGycm TECHNIQUE: High resolution transaxial imaging was performed without contrast material. Sagittal and coronal images were reconstructed. Individualized dose optimization techniques were used for this CT. COMPARISON: Cervical spine, 08/20/2017. FINDINGS: Normal craniovertebral junction. There are degenerative changes of the anterior atlantoaxial articulation. Normal odontoid process. There is straightening of the normal cervical lordosis. Normal vertebral bodies and posterior osseous elements. C2-3: Normal endplates. Normal disc height and morphology. Normal central canal and intervertebral neuroforamina. C3-4: Normal endplates. Normal disc height and morphology. Normal central canal and intervertebral neuroforamina. C4-5: Endplate spondylosis with loss of disc height. Facet and uncovertebral joint degenerative change. Normal central canal. Narrowing of the bilateral intervertebral neuroforamina, right greater than left. C5-6: Endplate spondylosis. Loss of disc height. Facet and uncovertebral joint degenerative change.. Mild stenosis of the central canal and narrowing of the bilateral intervertebral neuroforamina. C6-7: Loss of disc height with endplate spondylosis. Facet and uncovertebral joint degenerative change.. Normal central canal. Narrowing of the bilateral intervertebral neuroforamina. C7-T1: Normal endplates. Normal disc height and morphology. Facet joint degenerative change. Normal central canal and intervertebral neuroforamina. Normal visualized soft tissue structures. CT/Spine Cervical without Contras IMPRESSION: Degenerative changes of the cervical spine without acute fracture or subluxation. Note: MRI is more sensitive than CT in detecting cord injury, ligamentous injury and epidural hematoma. If there is continued clinical concern for any of these entities, MRI should be considered. Electronically Signed: Dominik Snyder DO at 18:49 EDT Tel [phone], Service support ,
--- NOTE | 2021-05-23 17:41 | CT_ITS ---
STUDY: CT PELVIS WITHOUT CONTRAST REASON FOR EXAM: Male, 70 years old. Trauma. Fell 6'' off ladder. History of prostate cancer. RADIATION DOSAGE (If Supplied By Facility): CTDIvol = ( 19.87 ) mGy, DLP = ( 669.79 ) mGycm TECHNIQUE: Transaxial imaging of the pelvis was performed without oral contrast, and without intravenous administration of contrast material. Multiplanar coronal and sagittal images were reformatted. Individualized dose optimization techniques were used for this CT. COMPARISON: CT of the abdomen and pelvis, September 07 FINDINGS: Normal urinary bladder. Normal prostate and seminal vesicles. There are multiple phleboliths in the pelvis. Normal visualized small intestine. Marked sigmoid diverticulosis without acute inflammatory change. There is no pelvic fluid. No free air cavity. There is no pelvic mass lesion or lymphadenopathy. There is diffuse atherosclerotic calcification of the pelvic arteries. Bilateral inguinal hernias of omental fat. The abdominal wall is otherwise unremarkable. Mild degenerative changes of the lower lumbar spine. Normal sacrum, sacroiliac joints and iliac wings. Normal bilateral superior and inferior pubic rami, symphysis pubis and bilateral initial tuberosities. Normal visualized right femoral head, neck and proximal shaft. Normal right acetabulum. There is mild narrowing of the right hip joint. Normal visualized left femoral head, neck and proximal shaft. Normal left acetabulum. Mild narrowing of the left hip joint. CT/Pelvis without IV Contrast IMPRESSION: 1. No evidence of fracture or dislocation. No lytic or blastic lesions. 2. Sigmoid diverticulosis. Electronically Signed: Dominik Synder DO at 18:53 EDT Tel [phone], Service support ,
--- NOTE | 2021-05-23 17:44 | ED.VIS.FALL ---
HPI HPI - Fall History of Present Illness Chief Complaint: Fall Informant: patient and spouse/S.O. Occured/Mechanism Occurred: Today Narrative Narrative: Fall off a 5 foot ladder 2 hours prior to arrival. States ladder tipped over falling on top of a ladder onto his buttocks. He did hit his head however no loss of consciousness. Denies headache neck pain nausea or vomiting. Pain to right shoulder right forearm, right buttocks. Able to ambulate into the department. He does take aspirin and Plavix due to history of coronary stents. Took Advil prior to arrival. Has tolerated [place] in the past. [facility] Medical History Arteriosclerosis of coronary artery in patient with history of myocardial infarction Frequent PVCs History of prostate cancer History of renal calculi History of ST elevation myocardial infarction (STEMI) (01/18/19) Home Medications aspirin 81 mg tablet,delayed release 81 mg PO DAILY@0800 #90 tab 02/01/19 [Rx Last Taken 07/05/19] clopidogrel 75 mg tablet 75 mg PO DAILY #90 tab 04/21/19 [Rx Last Taken 07/05/19] escitalopram oxalate 10 mg tablet 10 mg PO DAILY 07/27/19 [History Last Taken Unknown] multivitamin 1 tab PO DAILY 07/27/19 [History Last Taken Unknown] docusate sodium [Colace] 100 mg PO DAILY #30 cap 05/23/21 [Rx Last Taken Unknown] hydrocodone-acetaminophen 1 tab PO Q6H PRN 3 Days #12 tab 05/23/21 [Rx Last Taken Unknown] pravastatin 20 mg PO DAILY 05/23/21 [History Last Taken Unknown] Allergy/AdvReac Type Severity Reaction Status Date / Time ticagrelor [From Brilinta] AdvReac Severe severe Verified 07/27/19 11:56 dyspnea ondansetron AdvReac HALLUCINATI Verified 07/27/19 11:56 [From Zofran (as ONS hydrochloride)] Family History Father Congestive heart failure (CHF) Mother CAD (coronary artery disease) Brother CAD (coronary artery disease) Surgical History History of surgery on left wrist History of tonsillectomy and adenoidectomy Stented coronary artery (07/05/19) Social History Smoking Status: Former smoker ROS ROS ED Constitutional Constitutional ED: Denies chills, fever(s) or sweats Eyes Eyes: Denies change in vision ENT ENT ED: Denies dysphagia or sore throat Cardiovascular Cardiovascular: Denies chest pain, leg edema, palpitations or racing heartbeat Respiratory/Chest Respiratory/Chest: Denies cough, dyspnea or dyspnea on exertion Gastrointestinal Gastrointestinal: Denies abdominal pain, diarrhea, nausea or vomiting Genitourinary Genitourinary ED: Denies dysuria, hematuria or urinary frequency Musculoskeletal Musculoskeletal: Reports arthralgias and other Details: See HPI ; Denies back pain, extremity pain or neck pain Integumentary Denies rash or wounds Neurologic Neurologic: Denies headache(s), paresthesias or weakness EXAM Physical Exam Const Vital Signs: 05/23/21 16:41 05/23/21 17:06 05/23/21 19:09 Temperature 96.5 F L Temperature Source Temporal Pulse Rate 66 57 L Respiratory Rate 18 16 Respiratory Effort Normal Respiratory Depth Normal Respiratory Pattern Normal Blood Pressure 106/62 126/57 H Blood Pressure Mean 76 80 Pulse Ox 94 98 Oxygen Delivery Method Room Air Room Air Room Air Positive well nourished and well developed Constitutional Narrative: GCS 15. General Appearance ED: well developed and NAD HEENT Reports moist mucous membranes HEENT Narrative: Right forehead contusion. normocephalic Eyes PERRL, EOMs intact bilaterally and conjunctivae normal General Eye ED: Yes normal appearance of both eyes Neck no lymphadenopathy and supple General: Negative for tenderness Chest Wall inspection of chest normal and palpation of chest normal Chest: Negative for tenderness Resp normal respiratory effort and normal air movement Resp Narrative: Symmetric breath sounds. Effort and Inspection: symmetric chest movement; Negative for respiratory distress Cardio regular rate, regular rhythm and no murmurs Peripheral Pulses: pulses 2+ throughout GI normal to inspection, nondistended, normoactive bowel sounds and non-tender Palpation: Negative for guarding or rebound tenderness present Back/Spine no CVA tenderness and no thoracic nor lumbar tenderness Extremity Extremity Narrative: Right upper extremity: Active full range of motion mild tenderness at the proximal humerus, no deformities. Abrasion at the elbow because the dorsal aspect of the forearm, no active bleeding. No deformities. Mild tenderness at the proximal forearm. No radial head tenderness. Neuro vas intact distally. Left upper extremity: Nontender full range of motion neurovascular tact distally. Lower extremities: Logroll negative bilaterally. Gluteal examination right side large indurated tissue across majority aspect of the gluteal region. There is no sacral coccyx reproducible tenderness. Skin intact. General Extremety ED: Negative for edema or tenderness General Extremity: Negative for edema Neuro oriented x3 and no sensory deficits noted Sensorium / Orientation: awake and alert Skin no rashes or lesions noted and no wounds MDM MDM MDM Narrative Medical decision making narrative: Patient follow-up for 5 foot ladder. He is on aspirin and Plavix. Trauma scan head and neck shows no acute process. Due to extensive swelling induration right gluteal region I did perform a CT of his pelvis, there is no fractures. There is significant soft tissue stranding on the right gluteal region correlating with his injury. There is no bony process. X-rays 2 view right shoulder along with 2 views right forearm reviewed by myself and read by radiology negative for any acute fractures. He was treated with [place]. He is ambulating in department. Discussed symptomatic management. Prescription for [place] and Colace written. Follow-up with his PCP. All questions answered. Radiography Diagnostic Testing: Radiology Impression Brain CT 05/23/21 17:41 IMPRESSION: No acute intracranial or calvarial abnormality Electronically Signed: Dominik Snyder DO at 18:47 EDT Tel [phone], Service support , Cervical Spine CT 05/23/21 17:41 IMPRESSION: Degenerative changes of the cervical spine without acute fracture or subluxation. Note: MRI is more sensitive than CT in detecting cord injury, ligamentous injury and epidural hematoma. If there is continued clinical concern for any of these entities, MRI should be considered. Electronically Signed: Dominik Snyder DO at 18:49 EDT Tel [phone], Service support , Pelvis CT 05/23/21 17:41 IMPRESSION: 1. No evidence of fracture or dislocation. No lytic or blastic lesions. 2. Sigmoid diverticulosis. Electronically Signed: Dominik Snyder DO at 18:53 EDT Tel [phone], Service support , ADDENDUM: 05/23/21 1915 Forearm X-Ray 05/23/21 17:55 IMPRESSION: Normal x-ray examination of the right radius and ulna. Electronically Signed: Dominik Snyder DO at 18:35 EDT Tel [phone], Service support , Shoulder X-Ray 05/23/21 17:55 IMPRESSION: No acute fracture or dislocation. Electronically Signed: Dominik Snyder DO at 18:37 EDT Tel [phone], Service support , Discharge Plan Triage Chief Complaint: Fall ED Provider: Dani Lau Dx/Rx/DC Orders Clinical Impression: CHI (closed head injury), Forehead contusion, Right shoulder strain, Abrasion forearm, Contusion of buttock Instructions: ED Abrasion, ED Soft Tissue Contusion, ED Head Injury (Adult), ED Shoulder Sprain Prescriptions: New hydrocodone-acetaminophen 5-325 mg tablet 1 tab PO Q6H PRN (Reason: pain) 3 Days Qty: 12 RF: 0 docusate sodium [Colace] 100 mg capsule 100 mg PO DAILY Qty: 30 RF: 0 No Action aspirin 81 mg tablet,delayed release (DR/EC) 81 mg PO DAILY@0800 Qty: 90 RF: 3 escitalopram oxalate [Lexapro] 10 mg tablet 10 mg PO DAILY RF: 0 multivitamin Tablet 1 tab PO DAILY RF: 0 pravastatin 20 mg tablet 20 mg PO DAILY RF: 0 clopidogrel 75 mg tablet 75 mg PO DAILY Qty: 90 RF: 3 Primary Care Provider: Kris Begum Referrals: Kris Begum MD [Primary Care Provider] - 1 Week Disposition Disposition: Home, Self Care
[2021-05-23] MEDS: HYDROcodone Bitartrate/Apap 5/325 Tablet PO (17:54)
--- NOTE | 2021-05-23 17:55 | RAD_ITS ---
STUDY: X-RAY - RIGHT SHOULDER REASON FOR EXAM: Male, 70 years old. Trauma. Fell 6'' onto a ladder. Pain. TECHNIQUE: 4 view(s) of the shoulder. COMPARISON: None. FINDINGS: Normal glenohumeral articulation. Normal acromioclavicular joint. Normal acromion. 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 These are unchanged from a chest film of 01/18/2019. The soft tissue structures are unremarkable. Normal visualized pulmonary apex. RAD/Shoulder min 2 Views IMPRESSION: No acute fracture or dislocation. Electronically Signed: Dominik Snyder DO at 18:37 EDT Tel [phone], Service support ,
--- NOTE | 2021-05-23 17:55 | RAD_ITS ---
STUDY: X-RAY - RIGHT RADIUS AND ULNA REASON FOR EXAM: Male, 70 years old. Fell 6'' onto a ladder. Pain and abrasions. TECHNIQUE: 2 view(s) of the forearm. COMPARISON: None. FINDINGS: There is no demonstrated soft tissue swelling. Normal visualized radius. Normal visualized ulna. There is no acute fracture, dislocation or destructive osseous pathology. The rest and elbow appear intact. RAD/Forearm 2 Views IMPRESSION: Normal x-ray examination of the right radius and ulna. Electronically Signed: Dominik Snyder DO at 18:35 EDT Tel [phone], Service support ,
[2021-05-23 19:09] VITALS: BP 126/57; PULSE 57; RESP 16; O2SAT 98
== END 2021-05-23 20:17 | disposition home or self-care (01) ==
PROVIDERS: Emergency Provider Emergency Medicine; PCP Family Medicine
DX: S00.83XA Contusion of other part of head, initial encounter (principal); S30.0XXA Contusion of lower back and pelvis, initial encounter; S46.811A Strain of other muscles, fascia and tendons at shoulder and upper arm level, right arm, initial encounter; S50.811A Abrasion of right forearm, initial encounter; I25.10 Atherosclerotic heart disease of native coronary artery without angina pectoris; Z87.891 Personal history of nicotine dependence; Z79.02 Long term (current) use of antithrombotics/antiplatelets; W11.XXXA Fall on and from ladder, initial encounter; Y93.89 Activity, other specified; Y92.008 Other place in unspecified non-institutional (private) residence as the place of occurrence of the external cause; Y99.8 Other external cause status
CPT/HCPCS: 70450; 72125; 72192; 73030; 73090; 99283

== ENCOUNTER → 2021-06-10 10:47 | Outpatient (CLI) | payer OTHER, SELFPAY ==
[2019-01-19 08:30] VITALS: BMI 31.8
[2021-05-23 16:41] VITALS: BMI 28.3
[2021-06-10 12:49] LABS: AST(SGOT) 26 U/L (15-37); Alanine Aminotransfer ALT/SGPT 35 U/L (16-61); Alkaline Phosphatase 70 U/L (45-117); Anion Gap 4 (5-15); BUN 19 mg/dL (7-18); BUN/Creat Ratio 21.2 RATIO (10-20); Calcium,Total 8.9 mg/dL (8.5-10.1); Chloride 106 mmol/L (98-107); Cholesterol 224 mg/dL (200); EST Glomerular Filtration Rate 90 mL/min (>60); Est Glom Filt Rate - Afr Amer 108 mL/min (>60); Glucose 97 mg/dL (74-106); High Density Lipoprotein 42 mg/dL; Potassium 4.1 mmol/L (3.5-5.1); Sodium Level 139 mmol/L (136-145); Triglycerides 149 mg/dL; Very Low Density Lipoprotein 30 mg/dL (5-40)
== END ==
PROVIDERS: PCP Family Medicine; Referring Provider Family Medicine; Visit Provider Family Medicine
DX: I25.10 Atherosclerotic heart disease of native coronary artery without angina pectoris (principal)
CPT/HCPCS: 36415; 80053; 80061

== ENCOUNTER → 2021-10-10 10:10 | Outpatient (CLI) | payer OTHER, SELFPAY ==
[2019-01-19 08:30] VITALS: BMI 31.8
[2021-10-10 13:05] LABS: Microalbumin,Random Urine 24.1 mg/L (NO RANGE EST.)
[2021-10-10 13:12] LABS: AST(SGOT) 20 U/L (15-37); Alanine Aminotransfer ALT/SGPT 33 U/L (16-61); Albumin, Serum 3.8 g/dL (3.2-5.0); Alkaline Phosphatase 60 U/L (45-117); Anion Gap 5 (5-15); BUN 30 mg/dL (7-18); BUN/Creat Ratio 34.7 RATIO (10-20); Calcium,Total 9.1 mg/dL (8.5-10.1); Chloride 106 mmol/L (98-107); Cholesterol 195 mg/dL (200); Creatinine, Serum 0.86 mg/dL (0.70-1.30); EST Glomerular Filtration Rate 93 mL/min (>60); Est Glom Filt Rate - Afr Amer 113 mL/min (>60); Globulin 3.9 g/dL (2.2-4.2); Glucose 102 mg/dL (74-106); High Density Lipoprotein 38 mg/dL; PSA,Total- Diagnostic 1.05 ng/mL (0.0-4.0); Potassium 3.8 mmol/L (3.5-5.1); Protein, Total 7.7 g/dL (6.4-8.2); Sodium Level 139 mmol/L (136-145); T4 Free Direct 0.78 ng/dL (0.76-1.46); Thyroid Stim Hormone (TSH) 4.41 uIU/mL (0.358-3.74); Triglycerides 103 mg/dL; Very Low Density Lipoprotein 21 mg/dL (5-40)
== END ==
PROVIDERS: PCP Family Medicine; Referring Provider Family Medicine; Visit Provider Family Medicine
DX: C61 Malignant neoplasm of prostate (principal); E78.00 Pure hypercholesterolemia, unspecified; I25.10 Atherosclerotic heart disease of native coronary artery without angina pectoris; E03.8 Other specified hypothyroidism; M25.571 Pain in right ankle and joints of right foot
CPT/HCPCS: 36415; 80053; 80061; 82043; 84153; 84439; 84443; 84550

== ENCOUNTER 2022-01-05 11:25 | Outpatient (CLI) | payer OTHER, SELFPAY ==
[2019-01-19 08:30] VITALS: BMI 31.8
[2022-01-05 15:47] LABS: Cholesterol 143 mg/dL (200); High Density Lipoprotein 40 mg/dL; Triglycerides 81 mg/dL; Very Low Density Lipoprotein 16 mg/dL (5-40)
== END 2022-01-05 23:59 | disposition home or self-care (01) ==
LOC: MTLAB 11:26
PROVIDERS: PCP Family Medicine; Referring Provider Family Medicine; Visit Provider Family Medicine
DX: E78.00 Pure hypercholesterolemia, unspecified (principal)
CPT/HCPCS: 36415; 80061

== ENCOUNTER 2022-01-22 15:57 | Outpatient (CLI) | payer OTHER, SELFPAY ==
[2019-01-19 08:30] VITALS: BMI 31.8
--- NOTE | 2022-01-22 15:52 | CYSPIN_PTH ---
PATIENT: ANDREW EDUARDO LOC: [facility] U#:[id number] AGE/SX: 71/M ROOM: RE01/22/[address]: Dr. Davy Ochoa MD : 1950 BED: DIS: 01/22/2022 SPEC #: [id number] RECD: 01/23/22 08:57 STATUS: AMBER REJavier #: [id number] ARTIE: 01/22/22 15:[address]: Davy Ochoa DEPT: CYTOLOGY RECD BY: Melanie Pete ENTERED: 01/23/22 08:57 SP TYPE: CYSPIN FL OTHR DR: Dr. Fabian Begum MD Tissues: Urine Procedures: Pap Stain (control) Special Stain Group II Cytospin Fluid HEADER OPERATION: Not noted PRE-OP DIAGNOSIS: Hematuria TISSUE SUBMITTED: Urine for cytology DIAGNOSIS CYTOLOGY Urine for cytology (cytospin): Negative for malignant cells. See comment. SJ:mariano 01/23/2022 COMMENT The specimen also shows a few red blood cells. Clinical correlation and appropriate follow up are necessary. CYTOLOGY STUDY Slides are reviewed. CYTOLOGY GROSS Received is 80 ml of dark gold cloudy fluid labeled with the patient's name and and designated per the requisition as urine. Submitted for cytology preparation. / mariano 01/22/2022 TC:5 CPT: 38591
--- NOTE | 2022-01-22 16:00 | RAD_ITS ---
STUDY: X-RAY - ABDOMEN/PELVIS REASON FOR EXAM: Male, 71 years old. HEMATURIA TECHNIQUE: Single AP view of the abdomen / pelvis. COMPARISON: None. FINDINGS: Normal visualized lung bases. There is an abundance of fecal material throughout the colon. The visualized liver, spleen and kidneys are grossly normal in size and morphology. There are calcified phleboliths in the pelvis. There are diffuse degenerative changes of the visualized lumbar spine. RAD/Abdomen Single View IMPRESSION: Large amount of fecal material is seen in the colon. Electronically Signed: Carl Mi MD at 14:49 EST ,
[2022-01-22 17:42] LABS: Cytology, Body Fluid / CSF SEE PATHOLOGY REPORT
== END 2022-01-22 23:59 | disposition home or self-care (01) ==
LOC: MTRAD 15:58
PROVIDERS: PCP Family Medicine; Referring Provider Family Medicine; Visit Provider Family Medicine
DX: R31.9 Hematuria, unspecified (principal)
CPT/HCPCS: 74018; 87086; 88108; 88313

== ENCOUNTER 2022-02-04 06:48 | Outpatient (CLI) | payer OTHER, SELFPAY ==
[2019-01-19 08:30] VITALS: BMI 31.8
--- NOTE | 2022-02-04 10:07 | STRESSREP_ITS ---
Stress Test Report Date: 02-04-2022 Procedure: Exercise tolerance test/imaging study Indications: Chest pain; CAD; PCI Consent: Per the patient Procedure: The patient exercised on a Herb protocol for 9 minutes completing Stage III achieving a peak heart rate of 130 bpm (86% predicted maximal heart rate) with a peak blood pressure 178/84 mmHg and a peak MET capacity of 10 METs. The baseline ECG demonstrated sinus bradycardia; occasional PVC. The peak exercise ECG demonstrated no obvious ECG changes. There were occasional PVCs pretest, during exercise, and recovery. The functional capacity was considered good. There was a little pressure with associated dyspnea at peak exercise. The examination was discontinued secondary to dyspnea. Impression: 1. Technically adequate (percent predicted maximal heart rate greater than 85%) exercise tolerance test 2. Peak exercise ECG with no obvious ECG changes 3. There were occasional PVCs pretest, during exercise, and recovery 4. Nuclear images pending Myocardial perfusion imaging study: Technique: The patient was injected with 11.6 mCi of technetium 99m Cardiolite and subsequently rest SPECT Cardiolite nuclear imaging was obtained in the horizontal long, vertical long, and short axis views. The patient exercised on a Herb protocol for 9 minutes completing Stage III achieving a peak heart rate of 130 bpm (86% predicted maximal heart rate) with a peak blood pressure 178/84 mmHg and a peak MET capacity of 10 METs. The patient was injected with 32.9 mCi of technetium 99m Cardiolite and subsequently stress SPECT Cardiolite nuclear imaging was obtained in the horizontal long, vertical long, and short axis views. A gated Cardiolite study at peak stress was obtained. Interpretation: Rest and stress SPECT Cardiolite nuclear imaging status post realignment, normalization, and attenuation correction, demonstrates the appearance of relative uniform tracer uptake and myocardial perfusion appearing within normal limits. There is end systolic thickening and brightening. The gated Cardiolite study demonstrates myocardial thickening and inward wall motion. The reported LVEF is 62%. Impression: 1. Rest and stress SPECT Cardiolite nuclear imaging demonstrate relative uniform tracer uptake and myocardial perfusion appearing within normal limits. 2. The gated Cardiolite study reports an LVEF of 62%. This note was generated with [employer] software. It may contain incorrect words, spelling, and punctuation that were not noted in checking the note before signing.
== END 2022-02-04 23:59 | disposition home or self-care (01) ==
PROVIDERS: PCP Family Medicine; Referring Provider Nurse Practitioner Family; Visit Provider Nurse Practitioner Family
DX: R07.9 Chest pain, unspecified (principal); I25.10 Atherosclerotic heart disease of native coronary artery without angina pectoris; I25.2 Old myocardial infarction; Z95.5 Presence of coronary angioplasty implant and graft
CPT/HCPCS: 78452; 93017; A9500; A4216

== ENCOUNTER → 2022-03-17 | Outpatient (CLI) | payer OTHER, SELFPAY ==
[2019-01-19 08:30] VITALS: BMI 31.8
[2022-03-17 12:34] LABS: AST(SGOT) 33 U/L (15-37); Alanine Aminotransfer ALT/SGPT 70 U/L (16-61); Albumin, Serum 3.7 g/dL (3.2-5.0); Alkaline Phosphatase 63 U/L (45-117); Bilirubin, Direct 0.16 mg/dL (0.00-0.30); Cholesterol 141 mg/dL (200); Globulin 4.2 g/dL (2.2-4.2); High Density Lipoprotein 40 mg/dL; Protein, Total 7.9 g/dL (6.4-8.2); Triglycerides 66 mg/dL; Very Low Density Lipoprotein 13 mg/dL (5-40)
== END | disposition home or self-care (01) ==
LOC: MTLAB 10:53
PROVIDERS: PCP Family Medicine; Referring Provider Nurse Practitioner Family; Visit Provider Nurse Practitioner Family
DX: E78.5 Hyperlipidemia, unspecified (principal); I25.10 Atherosclerotic heart disease of native coronary artery without angina pectoris; I25.2 Old myocardial infarction; Z95.5 Presence of coronary angioplasty implant and graft
CPT/HCPCS: 36415; 80061; 80076

== ENCOUNTER → 2022-10-09 | Outpatient (CLI) | payer OTHER, SELFPAY ==
[2019-01-19 08:30] VITALS: BMI 31.8
[2022-10-09 08:25] LABS: Hematocrit 44.5 % (40-54); Hemoglobin 14.4 g/dL (13.0-16.5); Mean Corp Hgb Conc 32.4 g/dL (32-36); Mean Corpuscular Hgb 29.5 pg (27.0-32.0); Mean Corpuscular Volume 91.2 fL (80-94); Mean Platelet Vol. 9.5 fl (6.2-12.0); Platelet Count 290 K/mm3 (150-450); RBC Distribution Width CV 12.8 % (11.6-14.6); RBC Distribution Width SD 42.5 fl (35.1-43.9); Red Blood Count 4.88 M/mm3 (4.6-6.2); White Blood Count 4.7 K/mm3 (4.4-11.0)
[2022-10-09 08:46] LABS: ALB/GLOB Ratio 0.8 RATIO (0.9-2.4); AST(SGOT) 22 U/L (15-37); Alanine Aminotransfer ALT/SGPT 37 U/L (16-61); Albumin, Serum 3.6 g/dL (3.2-5.0); Alkaline Phosphatase 64 U/L (45-117); Anion Gap 5 (5-15); BUN 26 mg/dL (7-18); BUN/Creat Ratio 27.5 RATIO (10-20); Bilirubin, Direct 0.11 mg/dL (0.00-0.30); Calcium,Total 9.3 mg/dL (8.5-10.1); Chloride 108 mmol/L (98-107); Cholesterol 159 mg/dL (200); Creatinine, Serum 0.94 mg/dL (0.70-1.30); EST Glomerular Filtration Rate 84 mL/min (>60); Est Glom Filt Rate - Afr Amer 102 mL/min (>60); Globulin 4.3 g/dL (2.2-4.2); Glucose 108 mg/dL (74-106); High Density Lipoprotein 42 mg/dL; Potassium 4.3 mmol/L (3.5-5.1); Protein, Total 7.9 g/dL (6.4-8.2); Sodium Level 141 mmol/L (136-145); Triglycerides 110 mg/dL; Very Low Density Lipoprotein 22 mg/dL (5-40)
[2022-10-09 13:49] LABS: Vitamin D,25 Hydroxy 25.6 ng/mL
== END | disposition home or self-care (01) ==
LOC: LAB 07:53
PROVIDERS: PCP Family Medicine; Visit Provider Family Medicine
DX: I21.3 ST elevation (STEMI) myocardial infarction of unspecified site (principal); C61 Malignant neoplasm of prostate; E55.9 Vitamin D deficiency, unspecified
CPT/HCPCS: 36415; 80053; 80061; 82248; 82306; 84153; 85027

== ENCOUNTER → 2022-10-21 | Outpatient (CLI) | payer OTHER, SELFPAY ==
[2019-01-19 08:30] VITALS: BMI 31.8
[2022-10-21 13:52] LABS: Bacteria 0 SEEN /hpf (None Seen); Mucous, Urine 0 SEEN /hpf (<or=2+); Red Blood Cells-Urine 0 SEEN /hpf (0-5); White Blood Cells 0 SEEN /hpf (0-5)
[2022-10-21 15:44] LABS: Color, Urine Yellow (Yellow); Glucose, Dipstick Normal (Normal); Ketone-Dipstick 5 mg/dl (Negative); Leukocyte Esterase-Dipstick Negative /ul (Negative); Nitrite-Dipstick Negative (Negative); Occult Blood-Urine 10 /ul (Negative); Protein-Dipstick Negative (Negative); Urine Bilirubin Dipstick Negative (Negative); Urine Clarity Clear (Clear); Urine Urobilinogen Normal (Normal)
[2022-10-21 16:12] LABS: Calcium Oxalate Crystals Ur 1+ /hpf (<or=2+); Squamous Epithelial Cells - UA 0-5 SEEN /hpf (0-5)
== END | disposition home or self-care (01) ==
LOC: LABSPEC 13:50
PROVIDERS: PCP Family Medicine; Referring Provider Family Medicine; Visit Provider Family Medicine
DX: Z00.00 Encounter for general adult medical examination without abnormal findings (principal)
CPT/HCPCS: 81001; 87086; 87088

== ENCOUNTER → 2023-07-15 | Outpatient (CLI) | payer BC, SELFPAY ==
[2019-01-19 08:30] VITALS: BMI 31.8
[2023-07-15 15:54] LABS: AST(SGOT) 26 U/L (15-37); Alanine Aminotransfer ALT/SGPT 43 U/L (16-61); Albumin, Serum 3.8 g/dL (3.2-5.0); Alkaline Phosphatase 63 U/L (45-117); Bilirubin, Direct 0.11 mg/dL (0.00-0.30); Cholesterol 211 mg/dL (200); Globulin 4.2 g/dL (2.2-4.2); High Density Lipoprotein 44 mg/dL; Triglycerides 133 mg/dL; Very Low Density Lipoprotein 27 mg/dL (5-40)
== END | disposition home or self-care (01) ==
PROVIDERS: PCP Family Medicine; Referring Provider Nurse Practitioner Family; Visit Provider Nurse Practitioner Family
DX: E78.5 Hyperlipidemia, unspecified (principal); I25.10 Atherosclerotic heart disease of native coronary artery without angina pectoris; I25.2 Old myocardial infarction
CPT/HCPCS: 36415; 80061; 80076

== ENCOUNTER → 2023-09-07 | Outpatient (CLI) | payer BC, SELFPAY ==
[2019-01-19 08:30] VITALS: BMI 31.8
--- NOTE | 2023-09-07 08:42 | AAAS_ITS ---
Reason For Study: AAA screening Aorta Measurements Aorta Doppler Measurements Proximal aorta measures2.07 x 2.09cm. in cross- Peak systolic flow velocities within the proximal sectional axis. aorta measure 90.4 cm/sec. Proximal aorta measures2.03cm. in longitudinal Peak systolic flow velocities within the mid aorta axis. measure 124.9 cm/sec. Mid aorta measures1.36 x 1.36cm. in cross- Peak systolic flow velocities within the distal sectional axis. aorta measure 146.9 cm/sec. Mid aorta measures1.33cm. in longitudinal axis. Distal aorta measures2.98 x 2.98cm. in cross- sectional axis. Distal aorta measures2.96cm. in longitudinal axis. Left Iliac Artery Left iliac artery measures 1.27 x 1.27 cm. in the cross-sectional axis. Left iliac artery measures 1.11 cm. in the longitudinal axis. Peak systolic velocity in the left iliac artery measures 173.2 cm/sec. Right Iliac Artery Right iliac artery measures 0.98 x 0.96 cm. in the cross-sectional axis. Right iliac artery measures 0.98 cm. in the longitudinal axis. Peak systolic velocity in the right iliac artery measures 107.3 cm/sec. Procedure Aorta IVC Iliac vasculature or bypass grafts [id number]. Exam performed in department. VL/AAA Screening Interpretation Summary Aorta patent with ectasia to 2.98 cm present Right iliac artery patent, normal caliber Left iliac artery patent with ectasia to 1.27 cm present Ordering Physician: Kris Begum Referring Physician: Kris Begum Performed By: Viviane Garcia RVT
== END | disposition home or self-care (01) ==
PROVIDERS: PCP Family Medicine; Referring Provider Family Medicine; Visit Provider Family Medicine
DX: Z13.6 Encounter for screening for cardiovascular disorders (principal)
CPT/HCPCS: 76706

== ENCOUNTER → 2023-10-05 | Outpatient (CLI) | payer MEDICARE, SELFPAY ==
[2019-01-19 08:30] VITALS: BMI 31.8
[2023-10-05 13:12] LABS: AST(SGOT) 27 U/L (15-37); Alanine Aminotransfer ALT/SGPT 46 U/L (16-61); Albumin, Serum 3.5 g/dL (3.2-5.0); Alkaline Phosphatase 57 U/L (45-117); Anion Gap 4 (5-15); BUN 27 mg/dL (7-18); BUN/Creat Ratio 28.8 RATIO (10-20); Bilirubin, Direct 0.09 mg/dL (0.00-0.30); Calcium,Total 8.8 mg/dL (8.5-10.1); Chloride 110 mmol/L (98-107); Cholesterol 183 mg/dL (200); Creatinine, Serum 0.94 mg/dL (0.70-1.30); EST Glomerular Filtration Rate 85 mL/min (>60); Est Glom Filt Rate - Afr Amer 102 mL/min (>60); Globulin 3.9 g/dL (2.2-4.2); Glucose 99 mg/dL (74-106); High Density Lipoprotein 44 mg/dL; PSA,Total- Diagnostic 2.22 ng/mL (0.0-4.0); Potassium 4.2 mmol/L (3.5-5.1); Protein, Total 7.4 g/dL (6.4-8.2); Sodium Level 141 mmol/L (136-145); Triglycerides 105 mg/dL; Very Low Density Lipoprotein 21 mg/dL (5-40)
[2023-10-05 15:23] LABS: Hepatitis C Antibody Non-Reactive (Nonreactive); Vitamin D,25 Hydroxy 72.3 ng/mL
== END | disposition home or self-care (01) ==
LOC: MTLAB 10:55
PROVIDERS: Nurse Practitioner Family; PCP Family Medicine; Referring Provider Family Medicine; Visit Provider Family Medicine
DX: C61 Malignant neoplasm of prostate (principal); I21.3 ST elevation (STEMI) myocardial infarction of unspecified site; E55.9 Vitamin D deficiency, unspecified; Z11.59 Encounter for screening for other viral diseases
CPT/HCPCS: 36415; 80048; 80061; 80076; 82306; 84153; 86803

== ENCOUNTER 2024-09-10 12:23 | Emergency (ER) | payer MEDICARE, SELFPAY ==
[2019-01-19 08:30] VITALS: BMI 31.8
[2024-09-10 12:23] VITALS: BP 124/67; PULSE 51; RESP 19; TEMP 35.9; O2SAT 100; BMI 27.1
== END 2024-09-10 12:34 | disposition left against medical advice (07) ==
LOC: ED 12:48
PROVIDERS: PCP Family Medicine
DX: Z53.21 Procedure and treatment not carried out due to patient leaving prior to being seen by health care provider (principal)

== ENCOUNTER → 2024-11-13 | Outpatient (CLI) | payer MEDICARE, SELFPAY ==
[2019-01-19 08:30] VITALS: BMI 31.8
[2024-11-13 15:37] LABS: Vitamin D,25 Hydroxy 29.3 ng/mL
[2024-11-13 15:47] LABS: PSA,Total- Diagnostic 4.51 ng/mL (0.0-4.0)
[2024-11-13 16:01] LABS: ALB/GLOB Ratio 0.9 RATIO (0.9-2.4); AST(SGOT) 28 U/L (15-37); Alanine Aminotransfer ALT/SGPT 44 U/L (16-61); Albumin, Serum 3.8 g/dL (3.2-5.0); Alkaline Phosphatase 67 U/L (45-117); Anion Gap 6 (5-15); BUN 24 mg/dL (7-18); BUN/Creat Ratio 25.9 RATIO (10-20); Calcium,Total 10.1 mg/dL (8.5-10.1); Chloride 104 mmol/L (98-107); Cholesterol 219 mg/dL (200); Creatinine, Serum 0.92 mg/dL (0.70-1.30); EST Glomerular Filtration Rate 85 mL/min (>60); Est Glom Filt Rate - Afr Amer 103 mL/min (>60); Globulin 4.4 g/dL (2.2-4.2); Glucose 97 mg/dL (74-106); High Density Lipoprotein 55 mg/dL; Potassium 3.9 mmol/L (3.5-5.1); Protein, Total 8.2 g/dL (6.4-8.2); Sodium Level 137 mmol/L (136-145); Triglycerides 143 mg/dL; Very Low Density Lipoprotein 29 mg/dL (5-40)
== END | disposition home or self-care (01) ==
PROVIDERS: PCP Family Medicine; Referring Provider Nurse Practitioner Family; Visit Provider Nurse Practitioner Family
DX: E78.00 Pure hypercholesterolemia, unspecified (principal); C61 Malignant neoplasm of prostate
CPT/HCPCS: 80053; 80061; 82248; 82306; 84153

== ENCOUNTER 2025-02-09 17:51 | Observation (INO) | payer MEDICARE, SELFPAY ==
[2019-01-19 08:30] VITALS: BMI 31.8
[2025-02-09] VITALS (10 sets, daily range): BP systolic 122–164; BP diastolic 58–91; PULSE 50–63; RESP 14–26; TEMP 36.5–36.6; O2SAT 94–100; BMI 27.1; BMI 26.8
--- NOTE | 2025-02-09 18:02 | EDS_ITS ---
HPI History of Present Illness Chief Complaint: Chest Pain Informant: patient Onset/Context/Timing Onset: Hours (3) Activity at onset: gradual and light activity (Patient was working on his truck when his symptoms began) Timing: Waxes and wanes Quality: Positive for Tightness Location: Substernal and Left Parasternal Worsened By: Nothing Relieved By: Nothing Associated Symptoms: Positive for Nausea, Vomiting and Diaphoresis; Negative for Dyspnea, Cough, Fever, Lightheadedness, Acid Reflux or Palpitations Narrative Narrative: Patient presents with chest pain that began today. Patient states it began approximately 3 hours prior to arrival. Patient states he was working on his truck when he first noted the pain. Patient states that he walked into the house and was still having some pain in his chest. Patient states it has been waxing and waning. Patient describes it as tightness. Patient states it is over the substernal and left parasternal area. Patient admits to some nausea but denies any vomiting. Patient admits to some diaphoresis and lightheadedness. Patient denies any shortness of breath or cough. Patient denies any fevers or chills. Patient states that his pain different pain had with his OH and stents. CVD Risk Factors: Positive for Hypercholesterolemia and Family History 1' </=55; Negative for Hypertension, Diabetes or Smoking PE Risk Factors: Positive for Cancer; Negative for Recent Travel/Surgery, Recent Immobilization, Prior DVT or PE or OCP + Smoking + >/=35 [facility] Medical History Former tobacco use Hyperlipidemia Anxiety and depression History of renal calculi History of prostate cancer History of ST elevation myocardial infarction (STEMI) (01/18/19) Frequent PVCs Arteriosclerosis of coronary artery in patient with history of myocardial infarction Home Medications ?Medication ?Instructions ?Recorded ?Last Taken ?Type aspirin 81 mg tablet,delayed 81 mg PO DAILY@0800 #90 t abs 02/01/19 07/05/19 Rx release escitalopram oxalate 10 mg tablet 10 mg PO DAILY 07/27 Unknown History (Lexapro) pravastatin 80 mg tablet 80 mg PO DAILY #30 tabs 06/23 08/14 Unknown Rx cholecalciferol (vitamin D3) 50 50 mcg PO QDAY 4 Unknown History mcg (2,000 unit) capsule Allergy/AdvReac Type Severity Reaction Status Date / Time ticagrelor (From Brilinta) AdvReac Severe severe Verified 02/09/25 17:51 dyspnea ondansetron (From Zofran (as AdvReac HALLUCINATI Verified 02/09/25 17:51 hydrochloride)) ONS Family History Father Congestive heart failure (CHF) Mother CAD (coronary artery disease) Brother CAD (coronary artery disease) Surgical History History of tonsillectomy and adenoidectomy History of surgery on left wrist Stented coronary artery (07/05/19) Social History (Updated 02/09/25 @ 21:[address] Elvi Dowd MD) household members: spouse Smoking Status: Former smoker how long ago did patient quit smokin years ago alcohol intake: current alcohol intake frequency: holidays/special occasions only substance use type: does not use caffeine: Yes Type: coffee Number of servings: 3 ROS ROS ED Constitutional Constitutional ED: Reports sweats; Denies chills or fever(s) Eyes Eyes: Denies blurry vision or change in vision ENT ENT ED: Denies rhinorrhea or sore throat Cardiovascular Cardiovascular: Reports chest pain; Denies palpitations Respiratory/Chest Respiratory/Chest: Denies cough or dyspnea Gastrointestinal Gastrointestinal: Reports nausea; Denies vomiting Genitourinary Genitourinary ED: Denies dysuria or hematuria Musculoskeletal Musculoskeletal: Denies back pain or neck pain Integumentary Denies abscess or rash Neurologic Neurologic: Denies headache(s) or weakness Allergic/Immunologic Allergic/Immunologic ED: Denies mouth swelling or urticaria EXAM Physical Exam Const Vital Signs: 02/09/25 17:51 02/09/25 17:51 02/09/25 17:57 Temperature 97.8 F Temperature Source Temporal Pulse Rate 63 52 L Respiratory Rate 26 H 21 H Respiratory Pattern Normal Blood Pressure 136/66 H 164/66 H Blood Pressure Mean 89 98 Pulse Ox 100 98 Oxygen Delivery Method Room Air Room Air 02/09/25 18:28 02/09/25 18:33 02/09/25 18:39 Temperature Temperature Source Pulse Rate 53 L 57 L Respiratory Rate Respiratory Pattern Blood Pressure 147/72 H 143/91 H Blood Pressure Mean Pulse Ox Oxygen Delivery Method Room Air 02/09/25 18:51 02/09/25 19:00 02/09/25 20:00 Temperature Temperature Source Pulse Rate 55 L 56 L 57 L Respiratory Rate 14 16 19 H Respiratory Pattern Blood Pressure 127/69 H 127/69 H 122/63 H Blood Pressure Mean 88 88 82 Pulse Ox 95 94 96 Oxygen Delivery Method Room Air Room Air Room Air 02/09/25 21:00 Temperature Temperature Source Pulse Rate 50 L Respiratory Rate 16 Respiratory Pattern Blood Pressure 127/58 H Blood Pressure Mean 81 Pulse Ox 94 Oxygen Delivery Method Room Air Positive well nourished and well developed General Appearance ED: well developed and NAD HEENT Reports moist mucous membranes Neck supple and no JVD Resp normal respiratory effort and clear to auscultation bilaterally Cardio regular rhythm Rate: bradycardia GI soft to palpation, non-tender and non-distended Neuro oriented x3, CN's II-XII intact bilaterally and no sensory deficits noted Sensorium / Orientation: awake and alert Motor Exam: strength 5/5 throughout Heart Score History: Slightly/Non-Suspicious ECG: Normal Age: >/= 65 years Risk Factors: >/= 3 Risk Factors or History of CAD Score: 4 MDM MDM MDM Narrative Medical decision making narrative: Differential diagnosis includes cardiac dysrhythmia, cardiac ischemia, pneumonia, bronchitis, pulmonary embolism, electrolyte abnormality, gastroesophageal reflux, and anxiety. EKG will be obtained to assess for cardiac dysrhythmia and cardiac ischemia. Chest x-ray will be obtained to assess for pneumonia or bronchitis. CBC will be obtained to assess for leukocytosis and anemia. Basic metabolic profile will be obtained to assess for electrolyte abnormality and renal function. High-sensitivity troponin will be obtained to assess for cardiac ischemia. D-dimer will be obtained to assess for pulmonary embolism. 2-hour repeat high-sensitivity troponin will be obtained for ongoing cardiac ischemia. Lab Data Attestation: I reviewed the patient's lab results. Lab results narrative: CBC was reviewed and was within normal limits. Basic metabolic profile was reviewed. BUN was slightly elevated at 22. Glucose was slightly elevated at 123. The remainder is within normal limits. Initial high-sensitivity troponin was reviewed and was normal at 14. D-dimer was reviewed and was 0.66 which is normal for the patient's age. 2-hour repeat high-sensitivity troponin was reviewed and was 25. The delta is 11. Labs: Laboratory Results - last 24 hr 02/09/25 02/09/25 18:06 20:27 WBC 9.6 RBC 4.85 Hgb 14.7 Hct 43.0 MCV 88.7 MCH 30.3 MCHC 34.2 RDW Std Deviation 41.4 RDW Coeff of Rodney 12.7 Plt Count 318 MPV 9.8 Immature Gran % (Auto) 0.400 Neut % (Auto) 70.5 H Lymph % (Auto) 20.0 [place] % (Auto) 7.1 Eos % (Auto) 1.4 Baso % (Auto) 0.6 Absolute Neuts (auto) 6.7 Absolute Lymphs (auto) 1.91 Nucleated RBC % 0 D-Dimer Quant (PE/DVT) 0.66 H* Sodium 137 Potassium 3.7 Chloride 101 Carbon Dioxide 21.5 Anion Gap 15 BUN 22 H Creatinine 0.92 Estim Creat Clear Calc 79.66 Est GFR (MDRD) Non-Af 88 BUN/Creatinine Ratio 24.3 H Glucose 123 H Calcium 9.7 Troponin T High Sens 14 Troponin T Hi Sens 2 Hr 25 H Radiography Chest X-Ray - ED: 1 View, Read by ED Physician, Read by Radiologist and No Acute Disease Diagnostic Testing: Clinical Impression(s) from Imaging Studies Chest X-Ray 02/09/25 18:50 IMPRESSION: Negative Chest. Reading Location: [facility] Portable 1 view chest x-ray was obtained. On my independent interpretation, lung guerrier are clear. There is normal cardiac silhouette. Bony thorax is normal. There is no acute process noted. Radiologist also interpreted the x- ray and agrees. EKG Initial EKG: Attestation: I personally reviewed and interpreted this EKG as follows: Interpretation: No Acute Injury Pattern and Sinus Bradycardia (50) Comments: EKG was obtained. On my independent interpretation, it showed a sinus bradycardia with a rate of 50. MT interval, QRS interval, and QTc intervals were all normal. [place] was normal. There are no acute ST or T wave changes. Prior EKG tracings: available for review Prior: Unchanged (From stress test on 02/04/2022) Management Discussion w/another healthcare provider: Hospitalist (Dr. Dowd) Treatment and Re-Evaluation :: Patient was given aspirin. Patient was ordered nitroglycerin. Patient states nitroglycerin helped his pain and he is currently pain-free. Patient was advised of his findings. Patient was advised of the need for hospitalization. Patient is agreeable with this. Case was discussed with the hospitalist. She will be in to evaluate the patient. She will admit the patient to PCU for observation. Patient understood and was agreeable with the plan. All questions were answered. Discharge Plan Triage Chief Complaint: Chest Pain ED Provider: Louis Brush Dx/Rx/DC Orders Clinical Impression: Chest pain, History of CAD (coronary artery disease), Elevated blood pressure reading without diagnosis of hypertension Prescriptions: No Action aspirin 81 mg tablet,delayed release (DR/EC) 81 mg PO DAILY@0800 Qty: 90 3RF escitalopram oxalate [Lexapro] 10 mg tablet 10 mg PO DAILY pravastatin 80 mg tablet 80 mg PO DAILY Qty: 30 1RF cholecalciferol (vitamin D3) 50 mcg (2,000 unit) capsule 50 mcg PO QDAY Primary Care Provider: Fabian Begum Referrals: Fabian Begum MD [Primary Care Provider] - Print Language: Romansh Disposition Disposition: Acute Care Hospital [facility]
--- NOTE | 2025-02-09 18:17 | EKG12_ITS ---
Test Reason : Blood Pressure : */* mmHG Vent. Rate : 47 BPM Atrial Rate : 47 BPM P-R Int : 200 ms QRS Dur : 102 ms QT Int : 456 ms P-R-T Axes : 66 53 66 degrees QTcB Int : 403 ms Sinus bradycardia Otherwise normal ECG When compared with ECG of 10-Feb-2025 05:53, MANUAL COMPARISON REQUIRED DATA IS UNCONFIRMED Confirmed by CARLOZ HARDIN, CLEVELAND ([id number]), editorial manager MEME AGARWAL ([id number]) on 02/12/2025 9:49:02 AM Referred By: Kj Madrigal Confirmed By: CLEVELAND CARTY MD
[2025-02-09 18:30] LABS: Absolute Lymphocyte Count 1.91 X10^3/uL (0.83-4.51); Absolute Neutrophil Count 6.7 X10^3/uL (2.0-7.7); Basophil# 0.06 X10^3/uL; Basophil% 0.6 % (0-1); Eosinophil# 0.13 X10^3/uL; Eosinophils% 1.4 % (0-5); Hemoglobin 14.7 g/dL (13.0-16.5); Lymphocyte # 1.91 X10^3/ul (0.83-4.51); Mean Corp Hgb Conc 34.2 g/dL (32-36); Mean Corpuscular Hgb 30.3 pg (27.0-32.0); Mean Corpuscular Volume 88.7 fL (80-94); Mean Platelet Vol. 9.8 fl (6.2-12.0); Monocyte# 0.68 X10^3/uL; Monocyte% 7.1 % (0-10); NRBC Flagged by Analyzer 0 % (0-5); Neutrophil # 6.73 X10^3/uL (2.7-7.7); Neutrophil % 70.5 % (47-70); Platelet Count 318 K/mm3 (150-450); RBC Distribution Width CV 12.7 % (11.6-14.6); RBC Distribution Width SD 41.4 fl (35.1-43.9); Red Blood Count 4.85 M/mm3 (4.6-6.2); White Blood Count 9.6 K/mm3 (4.4-11.0)
[2025-02-09] MEDS: Aspirin 81 MG TAB.CHEW 324 MG PO (18:32)
[2025-02-09] MEDS: Nitroglycerin SL (ED/IMG/CATH) 0.4 MG TABLET SL ×2 (18:33→18:39)
[2025-02-09 18:46] LABS: D-Dimer Quantitative (DVT/PE) 0.66 FEU/ug/m (0.27-0.49)
--- NOTE | 2025-02-09 18:50 | RAD_ITS ---
PROCEDURE: CHEST 1 VIEW (PORTABLE) 02/09/2025 REASON FOR EXAM: 74-year-old male, chest pain and shortness of breath x3 hours prior to arrival. Dizziness and nausea, history of for coronary artery stents. TECHNIQUE: Frontal view of the chest. COMPARISON: Chest radiograph 07/03/2019. FINDINGS: Hardware: None. Heart: The heart size is normal. Lungs: No focal consolidation, pleural effusion or pneumothorax. Bones: Degenerative changes are identified within the thoracic spine. Stable benign right humeral enostoses. RAD/Chest 1 View (Portable) IMPRESSION: Negative Chest. Reading Location: [id number]
[2025-02-09 18:56] LABS: Troponin T High Sensitivity 14 ng/L (<=22)
[2025-02-09 18:57] LABS: Anion Gap 15 (5-15); BUN 22 mg/dL (4-19); BUN/Creat Ratio 24.3 RATIO (10-20); Calcium,Total 9.7 mg/dL (7.6-11.0); Carbon Dioxide 21.5 mmol/L (21.0-32.0); Chloride 101 mmol/L (98-108); Creatinine, Serum 0.92 mg/dL (0.70-1.20); EST Glomerular Filtration Rate 88 (>60); Estimated Creatinine Clearance 79.66 ml/min (50-250); Glucose 123 mg/dL (70-99); Potassium 3.7 mmol/L (3.3-5.1); Sodium Level 137 mmol/L (133-145)
[2025-02-09 21:02] LABS: Troponin T High Sens 2 HR 25 ng/L (<=22)
--- NOTE | 2025-02-09 21:20 | PCM.HP.STD ---
HPI - General General Date of Admission: 02/09/25 Date of Service: 02/09/25 Chief Complaint: Chest pain HPI Narrative The patient is a 74 y/o M w/ PMHx: Former tobacco use, CAD s/p STEMI w/ PCI, Hx Prostate CA, HLD, Anxiety and Depression, CKD stage II per GFR trending, recent elevation of his PSA to 4 with recent outpatient work-up per his Urologist at [facility] with MRI/PET not marked appearing but did have incidental 3.5 cm AAA who presents to the [facility] ED on 02/09/25 with history of onset of chest discomfort over the last 3 hours prior to ED arrival initially working on his truck when symptoms started described as tightness in the substernal left parasternal region noted to be waxing and waning with associated nausea without emesis, lightheadedness and diaphoresis but no dyspnea prompting eventual ED evaluation to be cautious. In the ED patient ministered nitroglycerin with chest discomfort decreased to 2 out of 10 in severity but eventually completely subsided to 0 out of 10 in severity. Work-up in the ED included T97.8 Temporal, heart rate 63, BP 136/66, respiratory rate 26, 98% on room air with most recent repeat vitals 4056, BP 127/69, respiratory rate 16, 94% on room air, CBC with WBC 9.6, hemoglobin 14.7, platelet 318 without marked shift, D-dimer 0.66 normal for age adjustment, BMP with BUN/2021/0.92, GFR 88, glucose 123, troponin 14 with repeat delta troponin 25, chest x-ray with no acute cardiopulmonary findings, EKG with sinus bradycardia with no acute evidence of ischemia unchanged from previous in 2021. In the ED patient administered full-strength aspirin therapy in addition to sublingual nitroglycerin. [facility] Medical History AAA (abdominal aortic aneurysm) Former tobacco use Hyperlipidemia Anxiety and depression History of renal calculi History of prostate cancer History of ST elevation myocardial infarction (STEMI) (01/18/19) Frequent PVCs Arteriosclerosis of coronary artery in patient with history of myocardial infarction Home Medications ?Medication ?Instructions ?Recorded ?Last Taken ?Type escitalopram oxalate 10 mg tablet 10 mg PO DAILY 07/27/19 02/09/25 History (Lexapro) pravastatin 80 mg tablet 80 mg PO DAILY #30 tabs 07/20/23 02/09/25 Rx aspirin 81 mg tablet,delayed 81 mg PO DAILY 02/09/25 02/09/25 History release Allergy/AdvReac Type Severity Reaction Status Date / Time ticagrelor (From Brilinta) AdvReac Severe severe Verified 02/09/25 17:51 dyspnea ondansetron (From Zofran (as AdvReac HALLUCINATI Verified 02/09/25 17:51 hydrochloride)) ONS Family History Father Congestive heart failure (CHF) Mother CAD (coronary artery disease) Brother CAD (coronary artery disease) Surgical History History of tonsillectomy and adenoidectomy History of surgery on left wrist Stented coronary artery (07/05/19) Social History household members: spouse Smoking Status: Former smoker how long ago did patient quit smokin years ago alcohol intake: current alcohol intake frequency: holidays/special occasions only substance use type: does not use caffeine: Yes Type: coffee Number of servings: 3 ROS ROS Narrative Admission Review of Systems: CONSTITUTIONAL: No weight loss, fever, chills, + weakness or fatigue. HEENT: + Lightheadedness. Eyes: No visual loss, blurred vision, double vision or yellow sclerae. Ears, Nose, Throat: No hearing loss, sneezing, congestion, runny nose or sore throat. SKIN: No rash or itching, lesions, wounds. CARDIOVASCULAR: + Chest tightness/heaviness, lightheadedness. No palpitations, edema, orthopnea, syncopal events. RESPIRATORY: No shortness of breath, cough or sputum, wheezing, hemoptysis. GASTROINTESTINAL: + Nausea without emesis. No anorexia, diarrhea, abdominal pain, melena, BRBPR. GENITOURINARY: No dysuria, frequency, urgency or retention. NEUROLOGICAL: + Lightheadedness. No headache, syncope, paralysis, ataxia, numbness or tingling in the extremities, focal weakness, change in bowel or bladder control, seizure. MUSCULOSKELETAL: + muscle, back pain, joint pain or stiffness. HEMATOLOGIC: No anemia. + Easy bleeding/bruising. LYMPHATICS: No enlarged nodes. No history of splenectomy. PSYCHIATRIC: + History of anxiety depression. ENDOCRINOLOGIC: + Diaphoresis. Cold or heat intolerance. No polyuria or polydipsia. ALLERGIES: No history of asthma, hives, eczema or rhinitis. Vital Signs Vital Signs Vital Signs: 02/09/25 17:51 02/09/25 17:51 02/09/25 17:57 Temperature 97.8 F Temperature Source Temporal Pulse Rate 63 52 L Respiratory Rate 26 H 21 H Respiratory Pattern Normal Blood Pressure 136/66 H 164/66 H Blood Pressure Mean 89 98 Pulse Ox 100 98 Oxygen Delivery Method Room Air Room Air 02/09/25 18:28 02/09/25 18:33 02/09/25 18:39 Temperature Temperature Source Pulse Rate 53 L 57 L Respiratory Rate Respiratory Pattern Blood Pressure 147/72 H 143/91 H Blood Pressure Mean Pulse Ox Oxygen Delivery Method Room Air 02/09/25 18:51 02/09/25 19:00 02/09/25 20:00 Temperature Temperature Source Pulse Rate 55 L 56 L 57 L Respiratory Rate 14 16 19 H Respiratory Pattern Blood Pressure 127/69 H 127/69 H 122/63 H Blood Pressure Mean 88 88 82 Pulse Ox 95 94 96 Oxygen Delivery Method Room Air Room Air Room Air 02/09/25 21:00 Temperature Temperature Source Pulse Rate 50 L Respiratory Rate 16 Respiratory Pattern Blood Pressure 127/58 H Blood Pressure Mean 81 Pulse Ox 94 Oxygen Delivery Method Room Air Weight Weight: 199 lb 15.348 oz Body Mass Index (BMI) 27.1 Physical Exam Narrative Physical Examination: General: Awake, alert, oriented x 3 and cooperative, seated upright in ED bed, no current chest discomfort. Skin: Normal color, normal turgor, no icterus, no cyanosis. HEENT: AT/NC, EOMI, PERRLA, MMM, no carotid bruits or JVD noted. Lungs: CTA bilaterally, moderate effort, mild decrease BL bases, no rales, ronchi or wheezing. Heart: Mildly bradycardic with regular rhythm; no gallop, rub audible. Abdomen: Soft, NTTP, ND, normal BS, no appreciated HSM. Extremities: No cyanosis, clubbing, or edema. Neurological: Patient awake, alert, oriented as noted, cognitive function intact; pupils equally reactive to light and accommodation, cranial nerves grossly normal, moving all 4 extremities, no focal deficits, strength preserved, well-appearing. Psychiatric: Affect appears normal, well-appearing, denies any current chest discomfort, no acute evidence of depressive or anxiety feelings but does have underlying history. Results Lab / Micro Data 02/09/25 18:06 02/09/25 18:06 Labs: Laboratory Results - last 24 hr 02/09/25 18:06: WBC 9.6, RBC 4.85, Hgb 14.7, Hct 43.0, MCV 88.7, MCH 30.3, MCHC 34.2, RDW Std Deviation 41.4, RDW Coeff of Rodney 12.7, Plt Count 318, MPV 9.8, Immature Gran % (Auto) 0.400, Neut % (Auto) 70.5 H, Lymph % (Auto) 20.0, [place] % (Auto) 7.1, Eos % (Auto) 1.4, Baso % (Auto) 0.6, Absolute Neuts (auto) 6.7, Absolute Lymphs (auto) 1.91, Nucleated RBC % 0, D-Dimer Quant (PE/DVT) 0.66 H*, Sodium 137, Potassium 3.7, Chloride 101, Carbon Dioxide 21.5, Anion Gap 15, BUN 22 H, Creatinine 0.92, Estim Creat Clear Calc 79.66, Est GFR (MDRD) Non-Af 88, BUN/Creatinine Ratio 24.3 H, Glucose 123 H, Calcium 9.7, Troponin T High Sens 14 02/09/25 20:27: Troponin T Hi Sens 2 Hr 25 H Imaging Radiology Impression Chest X-Ray 02/09/25 18:50 IMPRESSION: Negative Chest. Reading Location: [facility] Assessment & Plan Assessment/Plan (1) Chest pain: PLAN: Plan The patient is a 74 y/o M w/ PMHx: Former tobacco use, CAD s/p STEMI w/ PCI, Hx Prostate CA, HLD, Anxiety and Depression, CKD stage II per GFR trending, recent elevation of his PSA to 4 with recent outpatient work-up per his Urologist at [facility] with MRI/PET not marked appearing but did have incidental 3.5 cm AAA who presents to the [facility] ED on 02/09/25 with history of onset of chest discomfort over the last 3 hours prior to ED arrival initially working on his truck when symptoms started described as tightness in the substernal left parasternal region noted to be waxing and waning with associated nausea without emesis, lightheadedness and diaphoresis but no dyspnea prompting eventual ED evaluation to be cautious. #1. Chest Pain with indeterminate cardiac enzyme: EKG in ED with sinus bradycardia with no acute evidence of ischemia, CXR w/ no acute cardiopulmonary findings, initial trop 14 with repeat delta troponin 25. Will admit to PCU, place on a monitored bed to assure no acute myocardial infarction with serial cardiac enzymes and EKGs. If continued serial repeat cardiac enzymes and EKGs remain unremarkable will pursue a.m. cardiac stress testing. FLP in AM. Magnesium level requested. Continue aspirin, statin therapy. #2. CAD: Status post STEMI 12/2018 with stenting to the LAD and diagonal (PCI-DENZEL-Mid D1 w/ 2.5 x 12 Promus Synergy and POBA-Ostium D1, DENZEL-Mid LAD w/ 2.5 x 28 mm and 2.25 x 20 mm Promus Synergy Stent 01/18/19) with also at that time 24-hour Holter monitor evaluation with 18% PVCs, continue aspirin, statin, not on a beta-duyen or CELSO inhibitor/ARB with most recent stress testing 01/2022 noted to be negative for ischemia. #3. Chronic Kidney Disease Stage II per GFR trending: Admission BUN/Cr 22/0.92, GFR 88, baseline renal function primarily 0.8-1.0, repeat BMP in AM. #4. History Prostate CA w/ recent mild elevation PSA (4): Outpatient evaluation with MRI/PET not marked appearing, planned upcoming repeat office visit with [facility] in ~ 1 week. Prior radiation treatment noted. #5. Recent incidentally noted AAA: Imaging obtained recently secondary to concern for mild elevation in PSA with incidentally noted 3.5 cm abdominal aortic aneurysm, records requested. #6. Anxiety and depression: Continue patient home escitalopram regimen. #7. Hyperlipidemia: Continue home statin regimen. AM FLP. #8. Former tobacco use: Encourage continued tobacco cessation. #9. DVT prophylaxis: Lovenox. #10. CODE status: Patient PREETHI is his who is present and living will is currently in place. Discussed CODE status at length including difference between FULL code, DNR-CCA and DNR-CC status. Following discussions about the differences in these status, requested Full Code status. Charges/Coding Visit Charges Inpatient E&M: 78225 Init Hosp L2
[2025-02-09 21:49] LABS: Magnesium 2.1 mg/dL (1.5-2.2)
--- NOTE | 2025-02-09 21:56 | EKG12_ITS ---
Test Reason : AM EKG Blood Pressure : */* mmHG Vent. Rate : 46 BPM Atrial Rate : 46 BPM P-R Int : 200 ms QRS Dur : 100 ms QT Int : 454 ms P-R-T Axes : 54 43 56 degrees QTcB Int : 397 ms Sinus bradycardia Otherwise normal ECG When compared with ECG of 09-Feb-2025 22:36, MANUAL COMPARISON REQUIRED DATA IS UNCONFIRMED Confirmed by CARLOZ HARDIN, CLEVELAND ([id number]), photo editor MEME AGARWAL ([id number]) on 02/12/2025 8:14:33 AM Referred By: Confirmed By: CLEVELAND CARTY MD
[2025-02-09] MEDS: 0.9% Normal Saline (1000mL) 1,000 ML 100 ML IV (22:39)
[2025-02-09] MEDS: 0.9% Saline Lock 10 ML Syringe IV (22:39)
[2025-02-09 22:59] LABS: Troponin T High Sens 4 HR 31 ng/L (<=22)
[2025-02-10 00:59] LABS: Troponin T High Sens 4 HR 39 ng/L (<=22)
[2025-02-10 03:01] VITALS: BP 108/51; PULSE 48; RESP 14; TEMP 36.4; O2SAT 94
[2025-02-10 03:04] VITALS: PULSE 48
[2025-02-10 04:21] VITALS: BMI 26.6
[2025-02-10 05:33] LABS: Basophil# 0.03 X10^3/uL; Basophil% 0.6 % (0-1); Eosinophil# 0.14 X10^3/uL; Eosinophils% 2.7 % (0-5); Hematocrit 39.1 % (40-54); Hemoglobin 13.5 g/dL (13.0-16.5); Lymphocyte % 29.4 % (19-41); Mean Corp Hgb Conc 34.5 g/dL (32-36); Mean Corpuscular Hgb 30.4 pg (27.0-32.0); Mean Corpuscular Volume 88.1 fL (80-94); Mean Platelet Vol. 9.3 fl (6.2-12.0); Monocyte# 0.47 X10^3/uL; Monocyte% 9.2 % (0-10); NRBC Flagged by Analyzer 0 % (0-5); Neutrophil # 2.96 X10^3/uL (2.7-7.7); Neutrophil % 57.9 % (47-70); Platelet Count 252 K/mm3 (150-450); RBC Distribution Width CV 12.8 % (11.6-14.6); RBC Distribution Width SD 41.2 fl (35.1-43.9); Red Blood Count 4.44 M/mm3 (4.6-6.2); White Blood Count 5.1 K/mm3 (4.4-11.0)
[2025-02-10] MEDS: Aspirin E.C. 81 MG Tablet PO (05:50)
--- NOTE | 2025-02-10 05:55 | EKG12_ITS ---
Test Reason : CP ADMIT Blood Pressure : */* mmHG Vent. Rate : 53 BPM Atrial Rate : 53 BPM P-R Int : 178 ms QRS Dur : 108 ms QT Int : 436 ms P-R-T Axes : 56 55 61 degrees QTcB Int : 409 ms Sinus bradycardia Otherwise normal ECG When compared with ECG of 09-Feb-2025 17:54, MANUAL COMPARISON REQUIRED DATA IS UNCONFIRMED Confirmed by CARLOZ HARDIN, CLEVELAND ([id number]), technical writer and editor MEME AGARWAL ([id number]) on 02/12/2025 8:14:41 AM Referred By: Confirmed By: CLEVELAND CARTY MD
[2025-02-10 06:16] LABS: ALB/GLOB Ratio 1.2 RATIO (0.9-2.4); AST(SGOT) 24 U/L (<=37); Alanine Aminotransfer ALT/SGPT 22 U/L (<=46); Albumin, Serum 3.7 g/dL (3.4-4.8); Alkaline Phosphatase 60 U/L (40-129); Anion Gap 11 (5-15); BUN 20 mg/dL (4-19); BUN/Creat Ratio 25.9 RATIO (10-20); Chloride 108 mmol/L (98-108); Cholesterol 148 mg/dL (<=200); Creatinine, Serum 0.78 mg/dL (0.70-1.20); EST Glomerular Filtration Rate 95 (>60); Estimated Creatinine Clearance 91.61 ml/min (50-250); Globulin 3.1 g/dL (2.2-4.2); Glucose 113 mg/dL (70-99); High Density Lipoprotein 39 mg/dL; Low Density Lipoprotein Calc. 91 mg/dL; Protein, Total 6.8 g/dL (5.9-8.4); Sodium Level 140 mmol/L (133-145); Total Bilirubin 0.25 mg/dL (0.00-1.30); Triglycerides 89 mg/dL; Very Low Density Lipoprotein 18 mg/dL (5-40); cholesterol:hdl ratio screen 3.79
--- NOTE | 2025-02-10 07:29 | EKG12_ITS ---
Test Reason : CP Blood Pressure : */* mmHG Vent. Rate : 50 BPM Atrial Rate : 50 BPM P-R Int : 168 ms QRS Dur : 98 ms QT Int : 440 ms P-R-T Axes : 63 62 64 degrees QTcB Int : 401 ms Sinus bradycardia Otherwise normal ECG When compared with ECG of 06-Jul-2019 05:44, Premature ventricular complexes are no longer Present Confirmed by CARLOZ HARDIN, CLEVELAND ([id number]), editor greeting card MEME AGARWAL ([id number]) on 02/12/2025 9:48:16 AM Referred By: Kj Madrigal Confirmed By: CLEVELAND CARTY MD
[2025-02-10 07:40] VITALS: BP 169/71; PULSE 47; RESP 18; TEMP 36.4; O2SAT 99
[2025-02-10 08:12] VITALS: O2SAT 96
--- NOTE | 2025-02-10 10:37 | STRESSREP ---
Stress Test Report Pharmacologic myocardial perfusion stress test. 74-year-old man with a history of coronary artery disease Resting EKG demonstrates sinus bradycardia with a rate of 46 bpm. Resting blood pressure is 138/82 mmHg. 0.4 mg of regadenoson was infused per usual protocol followed by rapid intravenous saline flush injection. Continuous EKG monitoring was performed. The maximum heart rate was 62 bpm which was 41% of max impacted heart rate the maximum workload was 1 metabolic equivalent. At rest there were no ST or T wave changes noted to suggest ischemia and at peak infusion nonspecific ST changes were noted which did not meet the criteria for ischemia. No clinical angina is noted. The final blood pressure was 124/72 mmHg. Myocardial perfusion protocol. 12 mCi of technetium 99m sestamibi was injected at rest. 0.4 mg of regadenoson was infused per usual protocol. At peak infusion 36 mCi of technetium 99m sestamibi was injected stress images were obtained stress and rest images were reconstructed and compared in the short axis vertical long and horizontal long axis. Gated images were also obtained. Perfusion SPECT analysis: Review of the stress images demonstrate normal uptake of tracer noted in all areas of the myocardium. The resting images similar demonstrated normal uptake of tracer noted in all areas of the myocardium. No areas of reversibility are noted to suggest ischemia and no previous infarct is noted. Gated SPECT analysis: The gated ejection fraction is 63%. Conclusion: Normal pharmacologic myocardial perfusion stress test. Preserved ejection fraction.
[2025-02-10 10:45] VITALS: BP 159/59; PULSE 51; RESP 18; TEMP 36.5; O2SAT 99
--- NOTE | 2025-02-10 11:06 | PCM.DC ---
Discharge Instructions Diet Discharge Diet: Low fat / Low cholesterol DC O2, CPAP, BIPAP needs Home O2 Discharge instructions: No Dressing / Incision Discharge Activity: Return to Normal Activity Dressing / Incision Call your doctor if you observe: Fever of 101 or Higher, Shortness of breath, Dizziness, Fainting spells, Swelling in the ankles, Chest pain and Increased palpitations (irregular heartbeat) Follow Up Care Test Results: Test results from this visit will be discussed in further detail at your follow-up appointment, if applicable. Discharge Plan Admission Admit Date/Time: 02/09/25 21:21 Attending Provider: Kj Madrigal Primary Care Provider: Fabian Begum Consulting Providers: Elvi Dowd Discharge Orders/Prescriptions Prescriptions: Continued escitalopram oxalate [Lexapro] 10 mg tablet 10 mg PO DAILY pravastatin 80 mg tablet 80 mg PO DAILY Qty: 30 1RF aspirin 81 mg tablet,delayed release (DR/EC) 81 mg PO DAILY Patient Comments: TAKE IN THE AM Referrals / Follow Up: Fabian Begum MD [Primary Care Provider] - Within 1 Week Disposition Disposition (needs filled in before D/C Order can be placed): Home, Self Care
--- NOTE | 2025-02-10 14:07 | PCM.DC.SUM ---
Providers Date of Admission: 02/09/25 Primary Care Physician: Dr. Fabian Begum MD Reason For Visit: CHEST PAIN Diagnosis Discharge Diagnosis (1) Chest pain: Status: Acute Code(s): R07.9 - Chest pain, unspecified Medications at Discharge Home Medications escitalopram oxalate 10 mg tablet (Lexapro) 10 mg PO DAILY mental health 07/27/19 pravastatin 80 mg tablet 80 mg PO DAILY cholesterol #30 tabs 07/20/23 aspirin 81 mg tablet,delayed release 81 mg PO DAILY heart health 02/09/25 Hospital Course Operations None Procedures Nuclear stress test Summary of Care Provided Minutes Spent on Discharge: 35 Hospital Course: Per HPI: The patient is a 74 y/o M w/ PMHx: Former tobacco use, CAD s/p STEMI w/ PCI, Hx Prostate CA, HLD, Anxiety and Depression, CKD stage II per GFR trending, recent elevation of his PSA to 4 with recent outpatient work-up per his Urologist at [facility] with MRI/PET not marked appearing but did have incidental 3.5 cm AAA who presents to the 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 In the ED patient ministered nitroglycerin with chest discomfort decreased to 2 out of 10 in severity but eventually completely subsided to 0 out of 10 in severity. Work-up in the ED included T97.8 Temporal, heart rate 63, BP 136/66, respiratory rate 26, 98% on room air with most recent repeat vitals 4056, BP 127/69, respiratory rate 16, 94% on room air, CBC with WBC 9.6, hemoglobin 14.7, platelet 318 without marked shift, D-dimer 0.66 normal for age adjustment, BMP with BUN/2021/0.92, GFR 88, glucose 123, troponin 14 with repeat delta troponin 25, chest x-ray with no acute cardiopulmonary findings, EKG with sinus bradycardia with no acute evidence of ischemia unchanged from previous in 2021. In the ED patient administered full-strength aspirin therapy in addition to sublingual nitroglycerin. Hospital Course: 1. Chest pain with an indeterminant troponin elevation in setting of previous CAD status post stents/HLD?74-year-old male presents to the hospital with chest pain for 3 hours prior to arrival. He was working on his car and had anterior chest pain with no radiation. Nothing was making it better or worse but given his previous cardiac history presented to the hospital. He did have an indeterminant elevation in troponin and a D-dimer that was normal for his age. He was not hypoxic and there is no concern for pulmonary embolism, especially given his negative D-dimer. Stress test was obtained which was read as unremarkable and on my evaluation he says that his chest pain had resolved. I discussed with him the possibility for discharge today and he expressed understanding of the risks and benefits of going home and would like to go home today. No changes to his home medication as he is on aspirin and pravastatin, I would recommend outpatient follow-up with his PCP and cardiology. He does have a history of a AAA that is only 3.5 cm and this is being monitored by our in-house vascular surgeon. Physical Exam Narrative General: Alert, Oriented x3, Cooperative, No apparent distress HEENT: Atraumatic, PERRLA, EOMI, Normocephalic Oral: Moist Mucosa Neck: Supple, No JVD Lungs: Clear to auscultation, Normal air movement, No rhonchi, No wheeze, No rales Cardiovascular: Regular rate, Regular Rhythm, Normal S1, Normal S2, No murmurs Abdomen: Soft, Non Tender, Non-Distended, No Hepato-splenomegaly Extremities: No edema, Capillary Refill Less than 3 Seconds Skin: No rashes, No breakdown Musculoskeletal: No Tenderness to Palpation of Joints or Extremities Neurological: No focal neurological deficits, Motor Exam 5/5 strength throughout, Sensory exam intact to light touch and pain Psych/Mental Status: Normal Affect, Appropriate Weight / BMI Weight Weight: 196 lb 13.965 oz Body Mass Index (BMI) 26.6 ABG / Lab / Microbiology Data 02/10/25 05:19 02/10/25 05:19 Laboratory: Laboratory Results - last 24 hr 02/09/25 18:06: WBC 9.6, RBC 4.85, Hgb 14.7, Hct 43.0, MCV 88.7, MCH 30.3, MCHC 34.2, RDW Std Deviation 41.4, RDW Coeff of Rodney 12.7, Plt Count 318, MPV 9.8, Immature Gran % (Auto) 0.400, Neut % (Auto) 70.5 H, Lymph % (Auto) 20.0, [place] % (Auto) 7.1, Eos % (Auto) 1.4, Baso % (Auto) 0.6, Absolute Neuts (auto) 6.7, Absolute Lymphs (auto) 1.91, Nucleated RBC % 0, D-Dimer Quant (PE/DVT) 0.66 H*, Sodium 137, Potassium 3.7, Chloride 101, Carbon Dioxide 21.5, Anion Gap 15, BUN 22 H, Creatinine 0.92, Estim Creat Clear Calc 79.66, Est GFR (MDRD) Non-Af 88, BUN/Creatinine Ratio 24.3 H, Glucose 123 H, Calcium 9.7, Troponin T High Sens 14 02/09/25 20:27: Magnesium 2.1, Troponin T Hi Sens 2 Hr 25 H 02/09/25 22:32: Troponin T Hi Sens 4Hr 31 H 02/10/25 00:28: Troponin T Hi Sens 4Hr 39 H 02/10/25 05:19: WBC 5.1, RBC 4.44 L, Hgb 13.5, Hct 39.1 L, MCV 88.1, MCH 30.4, MCHC 34.5, RDW Std Deviation 41.2, RDW Coeff of Rodney 12.8, Plt Count 252, MPV 9.3, Immature Gran % (Auto) 0.200, Neut % (Auto) 57.9, Lymph % (Auto) 29.4, [place] % (Auto) 9.2, Eos % (Auto) 2.7, Baso % (Auto) 0.6, Absolute Neuts (auto) 3.0, Absolute Lymphs (auto) 1.50, Nucleated RBC % 0, Sodium 140, Potassium 4.0, Chloride 108, Carbon Dioxide 21.0, Anion Gap 11, BUN 20 H, Creatinine 0.78, Estim Creat Clear Calc 91.61, Est GFR (MDRD) Non-Af 95, BUN/Creatinine Ratio 25.9 H, Glucose 113 H, Calcium 9.0, Total Bilirubin 0.25, AST 24, ALT 22, Alkaline Phosphatase 60, Total Protein 6.8, Albumin 3.7, Globulin 3.1, Albumin/Globulin Ratio 1.2, Triglycerides 89, Cholesterol 148, LDL Cholesterol, Calc 91, VLDL Cholesterol 18, HDL Cholesterol 39 L, Cholesterol/HDL Ratio 3.79 Radiography Diagnostic Testing: Radiology Impression Chest X-Ray 02/09/25 18:50 IMPRESSION: Negative Chest. Reading Location: [facility] D/C Instructions Discharge Diet: Low fat / Low cholesterol Call your doctor if you observe: Fever of 101 or Higher, Shortness of breath, Dizziness, Fainting spells, Swelling in the ankles, Chest pain and Increased palpitations (irregular heartbeat) DC O2, CPAP, BIPAP Needs Home O2 Discharge instructions: No Meaningful Use Info Meaningful Use Meaningful Use Diagnoses (Choose all that apply): None applicable Ischemic Stroke Statin Dosing Therapy Reference: STATIN DOSE THERAPY REFERENCE: * Patients > 75 years receive moderate or high dose statin therapy. * Patients 75 years or YOUNGER should receive HIGH intensity statin dose unless contraindicated. You will be required to document reason for non-treatment if statin daily dose does not meet guidelines. HIGH DOSE STATIN THERAPY DAILY Atorvastatin > than or = to 40 mg Rosuvastatin > than or = to 20 mg Amlodipine + Atorvastatin > than or = to 2.5/40 mg Ezetimibe + Simvastatin 10/80 mg Simvastatin 80mg Discharge Plan Admission Admit Date/Time: 02/09/25 21:21 Attending Provider: Kj Madrigal Primary Care Provider: Fabian Begum Consulting Providers: Elvi Dowd Discharge Orders/Prescriptions Prescriptions: Continued escitalopram oxalate [Lexapro] 10 mg tablet 10 mg PO DAILY pravastatin 80 mg tablet 80 mg PO DAILY Qty: 30 1RF aspirin 81 mg tablet,delayed release (DR/EC) 81 mg PO DAILY Patient Comments: TAKE IN THE AM Referrals / Follow Up: Fabian Begum MD [Primary Care Provider] - Within 1 Week Disposition Disposition (needs filled in before D/C Order can be placed): Home, Self Care Charges/Coding Visit Charges Inpatient E&M: 36874 Disch Hosp >30min
== END 2025-02-10 11:07 | disposition home or self-care (01) ==
LOC: ED 21:28 → PCU 21:42
PROVIDERS: Admitting Provider Family Medicine; Emergency Provider Emergency Medicine; PCP Family Medicine; Referring Provider Family Medicine; Visit Provider Family Medicine
DX: R07.9 Chest pain, unspecified (principal); I25.10 Atherosclerotic heart disease of native coronary artery without angina pectoris; N18.2 Chronic kidney disease, stage 2 (mild); I71.40 Abdominal aortic aneurysm, without rupture, unspecified; E78.5 Hyperlipidemia, unspecified; F41.9 Anxiety disorder, unspecified; F32.A Depression, unspecified; R97.20 Elevated prostate specific antigen [PSA]; I25.2 Old myocardial infarction; Z85.46 Personal history of malignant neoplasm of prostate; Z87.891 Personal history of nicotine dependence; Z95.5 Presence of coronary angioplasty implant and graft; Z79.899 Other long term (current) drug therapy; Z79.82 Long term (current) use of aspirin
CPT/HCPCS: 36415; 71045; 78452; 80048; 80053; 80061; 83735; 84484; 85025; 85379; 93005; 93017; 96360; 96361; 99221; 99285; A9500; A4216; G0378; J2785

== ENCOUNTER → 2025-03-06 | Outpatient (CLI) | payer MEDICARE, SELFPAY ==
[2019-01-19 08:30] VITALS: BMI 31.8
== END | disposition home or self-care (01) ==
LOC: LABSPEC 17:34
PROVIDERS: PCP Family Medicine; Visit Provider Family Medicine
DX: Z01.818 Encounter for other preprocedural examination (principal); R30.9 Painful micturition, unspecified
CPT/HCPCS: 87086

== ENCOUNTER → 2025-04-06 | Outpatient (CLI) | payer MEDICARE, SELFPAY ==
[2019-01-19 08:30] VITALS: BMI 31.8
--- NOTE | 2025-04-06 15:02 | ECHOD_ITS ---
Reason For Study Reason For Study: Dyspnea/SOB Procedure This was a 2D Doppler, Color Flow transthoracic echocardiogram. Exam performed in department. Left Ventricle Normal LV size. Left ventricular systolic function is normal. The left ventricular ejection fraction is 65 %. Stage 1 diastolic dysfunction. No regional wall motion abnormalities noted. Right Ventricle Normal RV size. Normal systolic function. Mitral Valve Normal mitral valve. Mild-Moderate (1-2+) eccentric mitral valve insufficiency. Tricuspid Valve Normal tricuspid valve. Mild (1+) tricuspid valve insufficiency. Pulmonary artery systolic pressure is 32 mmHg. Aortic Valve Trisinus/trileaflet aortic valve. Mild focal aortic valve calcification. Pulmonic Valve Normal pulmonic valve. Great Vessels Normal sized aortic root. The pulmonary artery is normal size. Inferior vena cava collapse with sniff. Pericardium/Pleural No pericardial effusion. MMode/2D Measurements & Calculations LVIDd: 5.0 cm IVSd: 1.1 cm Ao root diam: 3.7 cm LVIDs: 2.8 cm LVPWd: 0.96 cm RVDd: 4.0 cm FS: 44.8 % LAV(MOD-bp): 57.8 ml LVAd ap4: 34.4 cm2 SV(MOD-sp4): 67.4 ml LAV(MOD-bp) Indexed: 27.6 ml/m2 LVLd ap4: 9.0 cm SI(MOD-sp4): 32.1 ml/m2 LAV(MOD-sp2): 47.2 ml EDV(MOD-sp4): 105.7 ml LAV(MOD-sp4): 66.6 ml EDV(sp4-el): 111.0 ml LVAs ap4: 19.0 cm2 LVLs ap4: 7.9 cm ESV(MOD-sp4): 38.3 ml ESV(sp4-el): 39.1 ml EF(MOD-sp4): 63.8 % EF(sp4-el): 64.8 % SV(sp4-el): 71.9 ml LA dimension(2D): 4.1 cm LA A4 area: 21.9 cm2 RA A4 area: 19.9 cm2 TAPSE: 2.5 cm Time Measurements MV dec time: 0.23 sec Doppler Measurements & Calculations MV E max evangelist: 77.1 cm/sec Lat Peak E' Evangelist: 12.0 cm/sec Med Peak E' Evangelist: 9.3 cm/sec MV A max evangelist: 107.1 cm/sec E/E' lat: 6.4 E/E' med: 8.3 MV E/A: 0.72 MV V2 max: 118.4 cm/sec MV P1/2t max evangelist: 89.3 cm/sec Ao V2 max: 159.6 cm/sec MV max P.6 mmHg MV P1/2t: 91.4 msec Ao max P.2 mmHg MV V2 mean: 55.3 cm/sec Ao V2 mean: 107.4 cm/sec MV mean P.5 mmHg MV dec slope: 286.0 cm/sec2 Ao mean P.4 mmHg MV V2 VTI: 46.1 cm MVA(P1/2t): 2.4 cm2 Ao V2 VTI: 38.6 cm AV (velocity ratio): 0.92 LV V1 max: 150.2 cm/sec MR max evangelist: 616.9 cm/sec TR max evangelist: 268.9 cm/sec LV V1 max P.0 mmHg MR max P.3 mmHg TR max P.9 mmHg LV V1 mean P.6 mmHg LV V1 mean: 99.8 cm/sec LV V1 VTI: 35.7 cm ECHO/Echo Complete Interpretation Summary Normal LV size. Left ventricular systolic function is normal. The left ventricular ejection fraction is 65 %. Stage 1 diastolic dysfunction. Pulmonary artery systolic pressure is 32 mmHg. Ordering Physician: Davy Matute Referring Physician: Davy Matute Performed By: Kyler Kumar RCS
== END | disposition home or self-care (01) ==
LOC: CVS 15:02
PROVIDERS: PCP Family Medicine; Referring Provider Nurse Practitioner Family; Visit Provider Nurse Practitioner Family
DX: R06.02 Shortness of breath (principal)
CPT/HCPCS: 93306

== ENCOUNTER → 2025-06-11 | Outpatient (CLI) | payer MEDICARE, SELFPAY ==
[2019-01-19 08:30] VITALS: BMI 31.8
[2025-06-11 16:00] LABS: Cholesterol 231 mg/dL (<=200); Low Density Lipoprotein Calc. 169 mg/dL; Triglycerides 80 mg/dL; Very Low Density Lipoprotein 16 mg/dL (5-40); cholesterol:hdl ratio screen 4.99
== END | disposition home or self-care (01) ==
PROVIDERS: PCP Family Medicine; Referring Provider Family Medicine; Visit Provider Family Medicine
DX: E78.00 Pure hypercholesterolemia, unspecified (principal)
CPT/HCPCS: 36415; 80061

== ENCOUNTER → 2025-07-03 | Outpatient (CLI) | payer MEDICARE, SELFPAY ==
[2019-01-19 08:30] VITALS: BMI 31.8
== END | disposition home or self-care (01) ==
LOC: PSN 10:44
PROVIDERS: PCP Family Medicine; Referring Provider Family Medicine; Visit Provider Family Medicine
DX: R06.89 Other abnormalities of breathing (principal)
CPT/HCPCS: 94060; 94726; 94729